=== PATIENT | female | born 1945 | race Caucasian/White ===

== ENCOUNTER → 2017-07-15 13:01 | Outpatient (CLI) | payer MEDICARE, SELFPAY ==
--- NOTE | 2017-07-15 13:10 | RAD_ITS ---
STUDY: LEG LENGTH STUDY REASON FOR EXAM: Female, 71 years old. Pain, leg length discrepancy TECHNIQUE: Frontal views of both lower extremities with a radiographic ruler in place are performed. COMPARISON: Left knee films 10/03/2009 FINDINGS: The right lower extremity measures approximately 81.8 cm, the left lower extremity measures approximately 80.6 cm. The right lower extremity is approximately 1.2 cm longer than the left. The patient is status post bilateral knee replacements. The orthopedic hardware is intact. RAD/Bone Length IMPRESSION: Leg length discrepancy, as described above. Electronically Signed: Jeremiah Jones DO at 10:58 EDT Tel , Service support ,
== END ==
PROVIDERS: Family Provider Family Medicine; PCP Family Medicine; Visit Provider Podiatrist
DX: M21.70 Unequal limb length (acquired), unspecified site (principal)
CPT/HCPCS: 77073

== ENCOUNTER → 2017-08-23 10:39 | Outpatient (CLI) | payer MEDICARE, SELFPAY ==
--- NOTE | 2017-08-23 10:39 | DT_ITS ---
This patient was seen during an EMR downtime August 19, 2017 - August 26, 2017. This patient may have a combination of paper and electronic documentation or all paper documentation. All documentation is viewable within the e-chart portion of [facility] for each patient visit.
[2017-08-23 14:22] LABS: CRP < 2.90 mg/L (0.0-3.0)
[2017-08-23 14:46] LABS: Absolute Lymphocyte Count 1.83 X10^3/ul (0.83-4.51); Absolute Neutrophil Count 1.6 X10^3/uL (2.0-7.7); Basophil# 0.03 X10^3/uL; Basophil% 0.7 % (0-1); Eosinophil# 0.21 X10^3/uL; Eosinophils% 4.8 % (0-5); Hematocrit 40.9 % (37-47); Hemoglobin 13.6 g/dl (12.0-15.0); Lymphocyte # 1.83 X10^3/ul (4.0); Lymphocyte % 42.1 % (19-41); Mean Corp Hgb Conc 33.3 g/gl (32-36); Mean Corpuscular Hgb 31.1 pg (27.0-32.0); Mean Corpuscular Volume 93.4 fL (81-99); Mean Platelet Vol. 10.1 fl (6.2-12.0); Monocyte# 0.65 X10^3/uL; Monocyte% 14.9 % (0-10); Neutrophil # 1.62 X10^3/uL (2.7-7.7); Neutrophil % 37.3 % (47-70); POSITIVE COUNT NO; POSITIVE DIFFERENTIAL NO; POSITIVE MORPHOLOGY NO; Platelet Count 233 K/mm3 (150-450); RBC Distribution Width CV 13.7 % (11.6-14.6); RBC Distribution Width SD 45.8 fl (35.1-43.9); Red Blood Count 4.38 M/mm3 (4.2-5.4); White Blood Count 4.4 K/mm3 (4.4-11.0)
[2017-08-29 11:08] LABS: Erythrocyte Sedimentation Rate 18 mm/hr (0-30)
== END ==
PROVIDERS: Family Provider Family Medicine; PCP Family Medicine
DX: T84.498A Other mechanical complication of other internal orthopedic devices, implants and grafts, initial encounter (principal)
CPT/HCPCS: 36415; 85025; 85652; 86140

== ENCOUNTER → 2019-05-06 13:10 | Outpatient (CLI) | payer MEDICARE, SELFPAY ==
--- NOTE | 2019-05-06 13:16 | CT_ITS ---
STUDY: CT RIGHT ANKLE WITHOUT CONTRAST REASON FOR EXAM: Female, 73 years old. RIGHT ANKLE FX Apr, SLIPPED ON ICE RADIATION DOSAGE (If Supplied By Facility): CTDIvol = ( 6.13 ) mGy, DLP = ( 89.24 ) mGycm TECHNIQUE: Thin section transaxial imaging of the ankle was obtained, with sagittal and coronal reconstructed images. Individualized dose optimization techniques were used for this CT. COMPARISON: None. FINDINGS: There is a spiral fracture the distal fibula which extends from the anterior cortical surface of the fibula at the level the tibial plafond extending posteriorly to the level of the distal tibial metaphyseal region. The distal fracture fragment remains in anatomic alignment. There is a 4 mm posterior displacement of the distal fracture fragment. There is widening of the distal tibiofibular syndesmosis consistent with a syndesmotic injury. There is a posterior fracture of the posterior malleolus which extends into the posterior distal tibiofibular syndesmosis. There is no distraction of this fracture fragment. There is a punctate cortical chip avulsion from the anterior inferior tip of the medial malleolus (sagittal series 601, image 12), suggesting a ligamentous avulsion injury of the deltoid ligamentous complex. Normal talar dome.. Normal subtalar, talonavicular, and calcaneocuboid articulations. There is partial demonstration of a large plantar calcaneal spur measuring [address]/Extremity Lower without Contra IMPRESSION: 1. Spiral fracture the distal fibula as described above. 2. Posterior malleolar fracture extending into the posterior distal tibiofibular syndesmosis. 3. Widening of the posterior tibiofibular articulation consistent with a syndesmotic injury. 4. Cortical chip avulsion of the anterior inferior tip of the medial malleolus suggesting a ligamentous avulsion injury of the deltoid ligament. 5. Partial demonstration of a large plantar calcaneal spur. Electronically Signed: Tiburcio Machuca, DO at 13:55 EST Tel , Service support ,
--- NOTE | 2019-05-06 13:46 | RAD_ITS ---
STUDY: X-RAY CHEST REASON FOR EXAM: Female, 73 years old. SOME CONGESTION PER PATIENT. TECHNIQUE: PA and lateral views of the chest. COMPARISON: None. FINDINGS: Hyperinflation. The lungs are clear. There is no demonstrated pleural abnormality. Normal size heart. Normal mediastinum and zina. Normal visualized pulmonary arteries. There is atherosclerotic calcification of the aortic arch with tortuosity. There are diffuse degenerative changes of the visualized thoracic spine. Normal visualized ribs, clavicles, and shoulders. There is no demonstrated abnormality of the visualized soft tissue structures of the upper abdomen. RAD/Chest PA and Lateral IMPRESSION: Hyperinflation. The lungs are clear. Electronically Signed: Gadiel Mills, at 13:10 EST , Service support ,
--- NOTE | 2019-05-06 13:49 | EKG12_ITS ---
Test Reason : PRE OP Blood Pressure : / mmHG Vent. Rate : 085 BPM Atrial Rate : 085 BPM P-R Int : 154 ms QRS Dur : 086 ms QT Int : 354 ms P-R-T Axes : 053 024 027 degrees QTc Int : 421 ms Normal sinus rhythm Normal ECG Confirmed by JAVED PRIETO ([id number]), sports editor KATHERYN ENGLISH ([id number]) on 05/07/2019 9:47:50 AM Referred By: Zeus Yancey Confirmed By:JAVED PRIETO
[2019-05-06 14:45] LABS: Absolute Neutrophil Count 2.7 X10^3/uL (2.0-7.7); Basophil# 0.06 X10^3/uL; Basophil% 1.2 % (0-1); Eosinophil# 0.16 X10^3/uL; Eosinophils% 3.1 % (0-5); Hematocrit 44.2 % (37-47); Hemoglobin 14.7 g/dL (12.0-15.0); Lymphocyte % 31.1 % (19-41); Mean Corp Hgb Conc 33.3 g/dL (32-36); Mean Corpuscular Hgb 31.1 pg (27.0-32.0); Mean Corpuscular Volume 93.4 fL (81-99); Mean Platelet Vol. 10.2 fl (6.2-12.0); Monocyte# 0.63 X10^3/uL; Monocyte% 12.3 % (0-10); NRBC Flagged by Analyzer 0 % (0-5); Neutrophil # 2.68 X10^3/uL (2.7-7.7); Neutrophil % 52.1 % (47-70); Platelet Count 301 K/mm3 (150-450); RBC Distribution Width SD 44.4 fl (35.1-43.9); Red Blood Count 4.73 M/mm3 (4.2-5.4); White Blood Count 5.1 K/mm3 (4.4-11.0)
[2019-05-06 15:02] LABS: International Normalized Ratio 1.1; Partial Thromboplast Time 27.2 Seconds (24.1-36.2); Prothrombin Time (Protime)PT. 14.1 SECONDS (11.7-14.9)
[2019-05-06 15:09] LABS: Hemoglobin A1c 5.9 % (4.2-6.3)
[2019-05-06 15:22] LABS: Anion Gap 5 (5-15); BUN 22 mg/dL (7-18); BUN/Creat Ratio 24.7 RATIO (10-20); Calcium,Total 10.5 mg/dL (8.5-10.1); Chloride 105 mmol/L (98-107); Creatinine, Serum 0.89 mg/dL (0.55-1.02); EST Glomerular Filtration Rate 66 mL/min (>60); Est Glom Filt Rate - Afr Amer 79 mL/min (>60); Glucose 84 mg/dL (74-106); Potassium 3.7 mmol/L (3.5-5.1); Sodium Level 140 mmol/L (136-145)
== END ==
PROVIDERS: PCP Family Medicine; Referring Provider Podiatrist Foot & Ankle Surgery; Visit Provider Podiatrist Foot & Ankle Surgery
DX: Z01.818 Encounter for other preprocedural examination (principal); Z01.810 Encounter for preprocedural cardiovascular examination; Z01.811 Encounter for preprocedural respiratory examination; S82.61XD Displaced fracture of lateral malleolus of right fibula, subsequent encounter for closed fracture with routine healing; I80.9 Phlebitis and thrombophlebitis of unspecified site; E11.9 Type 2 diabetes mellitus without complications
CPT/HCPCS: 36415; 71046; 73700; 80048; 83036; 85025; 85610; 85730; 93005

== ENCOUNTER → 2020-02-22 16:31 | Outpatient (CLI) | payer MEDICARE, SELFPAY | PROVIDERS: PCP Family Medicine; Visit Provider Obstetrics & Gynecology | DX: R30.0 Dysuria (principal) | CPT/HCPCS: 87086; 87088 ==

== ENCOUNTER → 2021-09-11 | Outpatient (CLI) | payer MEDICARE, SELFPAY ==
--- NOTE | 2021-09-11 08:20 | MRI_ITS ---
STUDY: MR Spine Lumbar W/O Contrast 09/11/2021 3:07 PM REASON FOR EXAM: Female, 75 years old. Back pain LUMBAR DISC DISPLACEMENT, RADICULOPATHY pain low back and bilat legs L > R, shorter leg, trouble walking TECHNIQUE: MR Spine Lumbar W/O Contrast Standardized fat and water weighted pulse sequences were obtained. COMPARISON: None FINDINGS: T12-L1: Normal endplates. Normal disc height, hydration and morphology. Normal bilateral facet joints. Normal central canal and bilateral lateral recesses. Normal bilateral intervertebral neural foramina. Normal lumbar lordosis. There is no substantial scoliosis. Normal conus medullaris that terminates at the L1. Large TARLOV cyst at S2. T1 vertebral body hemangioma. L1-2: Normal endplates. Normal disc height and morphology. Normal central canal and intervertebral neuroforamina.Disc desiccation. L2-3: Loss of intervertebral disc height. There is endplate spondylosis of the vertebral body. There is bilateral facet arthropathy. Broad-based disc herniation. Mild spinal stenosis but no narrowing of the intervertebral neuroforamina. There is bilateral ligamentum flavum thickening. Disc desiccation. L3-4: Loss of intervertebral disc height. There is endplate spondylosis of the vertebral body. There is bilateral facet arthropathy. Broad-based disc herniation. Mild spinal stenosis but no narrowing of the intervertebral neuroforamina. Disc desiccation. L4-5: Loss of intervertebral disc height. There is endplate spondylosis of the vertebral body. Grade 1 anterolisthesis of L4 on L5 measuring 2.4 mm. Right narrowing of the intervertebral neuroforamina. Compression of exiting right L4 nerve root. There is bilateral ligamentum flavum thickening. Severe spinal stenosis. Narrowing of the lateral recess. There is bilateral facet arthropathy. Disc desiccation. L5-S1: Loss of intervertebral disc height. There is endplate spondylosis of the vertebral body. There is bilateral facet arthropathy. Small left paracentral disc herniation. No spinal stenosis and no narrowing of the intervertebral neuroforamina. Disc desiccation. Normal visualized sacral ala. Normal visualized paraspinous soft tissue structures. MRI/Spine Lumbar (Routine) IMPRESSION: Multilevel degenerative changes, as described above. Large TARLOV cyst at S2. L5-S1: left paracentral disc herniation. No spinal stenosis. L2-3 and L3-4 with broad-based disc herniation. Mild spinal stenosis. Electronically Signed: Casey Fitzgerald MD at 15:13 EDT ,
== END | disposition home or self-care (01) ==
PROVIDERS: PCP Family Medicine; Visit Provider Nurse Practitioner Family
DX: M51.37 Other intervertebral disc degeneration, lumbosacral region (principal); M51.26 Other intervertebral disc displacement, lumbar region; M54.17 Radiculopathy, lumbosacral region; M47.817 Spondylosis without myelopathy or radiculopathy, lumbosacral region
CPT/HCPCS: 72148

== ENCOUNTER 2021-10-24 13:26 | Inpatient (IN) | payer MEDICARE, SELFPAY ==
--- NOTE | 2021-10-24 13:25 | EKG12_ITS ---
Test Reason : PRE-OP Blood Pressure : / mmHG Vent. Rate : 064 BPM Atrial Rate : 064 BPM P-R Int : 160 ms QRS Dur : 088 ms QT Int : 414 ms P-R-T Axes : 046 041 029 degrees QTc Int : 427 ms Normal sinus rhythm Normal ECG When compared with ECG of 06-MAY-2019 14:00, No significant change was found Confirmed by MILKA FINE, RADHA ([id number]), desk editor KATHERYN ENGLISH ([id number]) on 10/27/2021 2:33:49 PM Referred By: Brielle Bright Confirmed By:HEIDI JARQUIN MD
--- NOTE | 2021-10-24 14:41 | HP.PCM.HOS_ITS ---
HPI - General General Date of Admission: 10/24/21 Date of Service: 10/24/21 Chief Complaint: LLE pain s/p fall. HPI Narrative The patient is a 76 y/o F w/ PMHx: HTN, PONV, Obesity, Hx remote DVT 1993 following Knee surgery (coumadin at that time, uses xarelto/eliquis post-op now) who presents to the [facility] a [facility]21 following mechanical fall with immediate LLE pain, deformity prompting ED evaluation reporting that she had been attempting to pull out her fridge to clean underneath it but accidentally pulled on the door instead of the outside of the fridge which immediately swung open causing her to fall backwards. She currently notes that the pain is primarily extending from her thigh down to her ankle, pulsating, aching, 4-10 in severity. Work-up in the OSH ED included CMP with sodium 137, potassium 3.8, chloride 107, CO2 21.2, BUN/creat 20/0.82, glucose 132, hepatic profile unremarkable, CBC with WC 5.6, hemoglobin 14.1, platelet 184 without marked shift, chest x-ray with no acute cardiopulmonary findings, plain film of the left lower extremity with a displaced and mildly angulated oblique fracture of the mid femur at the level of the proximal stent of the medullary portion of the knee prosthesis. ED discussed case with Dr. Alvarado who accepted transition of care to [facility]. [facility] Medical History (Updated 10/24/21 @ 19:[address] Jennifer Grace MD) History of DVT (deep vein thrombosis) HTN (hypertension) Obesity PONV (postoperative nausea and vomiting) Stress incontinence Vaginal vault prolapse Home Medications celecoxib 200 mg capsule 200 mg PO DAILY 10/24/21 [History Last Taken 10/23/21] clobetasol 0.05 % topical ointment topical PRN Vaginal Irritation 10/24/21 [ History Last Taken Unknown] hydrochlorothiazide 25 mg tablet 25 mg PO DAILY 10/24/21 [History Last Taken 10/23/21] lisinopril 5 mg tablet 5 mg PO DAILY 10/24/21 [History Last Taken 10/23/21] Allergy/AdvReac Type Severity Reaction Status Date / Time acetaminophen [From [place]] AdvReac Intermediate Vomiting Verified 10/24/21 13:41 hydrocodone [From [place]] AdvReac Intermediate Vomiting Verified 10/24/21 13:41 morphine AdvReac Intermediate Nausea/emes Verified 10/24/21 13:13 is nabumetone AdvReac Intermediate Other Verified 10/24/21 13:41 tramadol AdvReac Intermediate Vomiting Verified 10/24/21 13:41 Family History (Updated 10/24/21 @ 13:[address] Jennifer Grace MD) Mother Bladder cancer CHF (congestive heart failure) Alzheimer disease Grandmother Diabetes Maternal grandmother Surgical History (Updated 10/24/21 @ 13:[address] Jennifer Grace MD) History of hysterectomy History of total right knee replacement Hx of vaginal surgery Social History (Updated 10/24/21 @ 13:[address] Jennifer Grace MD) household members: spouse Smoking Status: Never smoker alcohol intake: never substance use type: does not use ROS ROS Narrative Admission Review of Systems: CONSTITUTIONAL: No weight loss, fever, chills, + weakness or fatigue. HEENT: Eyes: No visual loss, blurred vision, double vision or yellow sclerae. Ears, Nose, Throat: No hearing loss, sneezing, congestion, runny nose or sore throat. SKIN: No rash or itching, lesions, wounds. CARDIOVASCULAR: No chest pain, chest pressure or chest discomfort, palpitations, edema, orthopnea, syncopal events. RESPIRATORY: No shortness of breath, cough or sputum, wheezing, hemoptysis. GASTROINTESTINAL: + anorexia, nausea, No vomiting or diarrhea, abdominal pain, melena, BRBPR. GENITOURINARY: No dysuria, frequency, urgency or retention. NEUROLOGICAL: No headache, dizziness, syncope, paralysis, ataxia, numbness or tingling in the extremities, focal weakness, change in bowel or bladder control, seizure. MUSCULOSKELETAL: + muscle, back pain, joint pain or stiffness. HEMATOLOGIC: No anemia, bleeding or bruising. LYMPHATICS: No enlarged nodes. No history of splenectomy. PSYCHIATRIC: No history of depression or anxiety. ENDOCRINOLOGIC: No reports of sweating, cold or heat intolerance. No polyuria or polydipsia. ALLERGIES: No history of asthma, hives, eczema or rhinitis. Physical Exam Narrative Physical Examination: General: Awake, alert, oriented x 3 and cooperative, laying in MedSurg bed, fatigued, notes pain currently 3-4 out of 10 in severity to the left lower extremity Skin: Normal color, normal turgor, no icterus, no cyanosis except initial stages ecchymoses however difficult to assess as currently in stabilization wrap. HEENT: AT/NC, EOMI, PERRLA, mildly dry MM, no carotid bruits or JVD noted. Lungs: Mild diminished, greater bases, appropriate for, no rales, ronchi or wheezing. Heart: Currently regular rate and rhythm; no gallop, rub audible. Abdomen: Soft, obese, NTTP, ND, mildly hyperactive BS, no HSM. Extremities: No cyanosis, no clubbing, left lower extremity is noted in wrap, able to move toes, peripheral digits warm. Neurological: Patient awake, alert, oriented as noted, cognitive function intact; pupils equally reactive to light and accommodation, cranial nerves II- XII grossly normal, moving all 4 extremities however significantly limited left lower extremity given recent fall with femoral fracture, strength accordingly severely globally decreased. Psychiatric: Affect appears fatigued otherwise normal, no acute evidence of depressive or anxiety feelings. Assessment & Plan Assessment/Plan (1) Closed left femoral fracture: PLAN: Plan The patient is a 76 y/o F w/ PMHx: HTN, PONV, Obesity, Hx remote DVT 1993 following Knee surgery (coumadin at that time, uses xarelto/eliquis post-op now) who presents to the [facility] as a direct admission from [facility] ED on 10/24/21 following mechanical fall with immediate LLE pain, deformity prompting ED evaluation reporting that she had been attempting to pull out her fridge to clean underneath it but accidentally pulled on the door instead of the outside of the fridge which immediately swung open causing her to fall backwards. #1. General debility, LLE pain s/p mechanical fall w/ the left lower extremity with a displaced and mildly angulated oblique fracture of the mid femur at the level of the proximal stent of the medullary portion of the knee prosthesis: Orthopedic surgery consulted from ED at outside facility. Will admit to [facility], maintain NPO after midnight, continue gentle IVFs, mayorga placement, monitor I/Os, frequent positioning, fall precautions, pain, anti-emetic regimen. PT/OT following operative intervention. CM consulted for discharge planning. Per NSQIP patient perioperative risk average, will obtain preoperative EKG is not performed at outside facility, review of labs with not marked appearing CBC or CMP and unremarkable chest x-ray. If EKG not marked we will pursue a.m. orthopedic surgery intervention. #2. Hypertension: Continue home regimen including lisinopril and hydrochlorothiazide with hold parameters as needed, PRN hydralazine. #3. Significant PONV: Placed in patient's file as history, will defer to anesthesia for potential perioperative agents, will have as needed Zofran and breakthrough Compazine if needed, may couple days also with any pain regimen given history. #4. Obesity: Weight loss and lifestyle changes encouraged. #5. History DVT: Patient with history of DVT 1993 following knee surgery, maintained at that time on Coumadin, uses Xarelto versus Eliquis postoperative now, will defer to orthopedic surgery regarding start time following operative repair. #6. DVT prophylaxis: SCDs, defer chemoprophylaxis for following OR once cleared per orthopedic surgery. #7. CODE status: Patient HCPOA is her and living will is currently in place. Discussed CODE status at length including difference between FULL code, DNR-CCA and DNR-CC status. Following discussions about the differences in these status, requested Full Code status. Advanced Care Planning Face to Face Time: 16 minutes. Charges/Coding Visit Charges Inpatient E&M: 81645 Init Hosp L3 Procedures Hospitalists Procedures: 60284 Advncd Care Plan 30 Min
[2021-10-24 14:42] VITALS: BP 172/78; PULSE 67; RESP 16; TEMP 36.5; O2SAT 99; BMI 33.0
[2021-10-24 15:05] VITALS: O2SAT 99
[2021-10-24 16:30] VITALS: BP 154/73
[2021-10-24] MEDS: Morphine 4 MG/ML Syringe IV ×2 (16:37→20:01)
[2021-10-24] MEDS: 0.9% Saline Lock 10 ML Syringe IV ×2 (16:37→20:02)
[2021-10-24 20:15] VITALS: BP 147/79; PULSE 85; RESP 16; TEMP 36.7; O2SAT 97
[2021-10-24 20:20] VITALS: BMI 33.0
[2021-10-25] VITALS (11 sets, daily range): BP systolic 105–152; BP diastolic 57–82; PULSE 64–126; RESP 15–18; TEMP 36.3–37.1; O2SAT 92–99
[2021-10-25] MEDS: 0.9% Normal Saline 1,000 ML 100 ML IV ×3 (01:50→21:45)
[2021-10-25] MEDS: Morphine 4 MG/ML Syringe IV ×3 (01:58→22:49)
[2021-10-25] MEDS: Ondansetron 4 MG/2 ML Vial IV ×2 (01:58→11:40)
[2021-10-25] MEDS: 0.9% Saline Lock 10 ML Syringe IV ×3 (01:58→22:49)
[2021-10-25] MEDS: Acetaminophen 325 MG Tablet 650 MG PO (05:31)
--- NOTE | 2021-10-25 05:40 | NURSING ---
cant get accurate weight due to has splint/cast on left leg for femur fx
[2021-10-25 05:47] LABS: Absolute Lymphocyte Count 1.84 X10^3/uL (0.83-4.51); Absolute Neutrophil Count 2.5 X10^3/uL (2.0-7.7); Basophil# 0.03 X10^3/uL; Basophil% 0.6 % (0-1); Eosinophil# 0.14 X10^3/uL; Eosinophils% 2.6 % (0-5); Hemoglobin 12.3 g/dL (12.0-15.0); Lymphocyte # 1.84 X10^3/ul (0.83-4.51); Lymphocyte % 34.3 % (19-41); Mean Corp Hgb Conc 33.2 g/dL (32-36); Mean Corpuscular Hgb 31.9 pg (27.0-32.0); Mean Corpuscular Volume 96.1 fL (81-99); Mean Platelet Vol. 9.5 fl (6.2-12.0); Monocyte# 0.82 X10^3/uL; Monocyte% 15.3 % (0-10); NRBC Flagged by Analyzer 0 % (0-5); Neutrophil # 2.52 X10^3/uL (2.7-7.7); Platelet Count 178 K/mm3 (150-450); RBC Distribution Width CV 13.6 % (11.6-14.6); RBC Distribution Width SD 47.9 fl (35.1-43.9); Red Blood Count 3.85 M/mm3 (4.2-5.4); White Blood Count 5.4 K/mm3 (4.4-11.0)
[2021-10-25 06:26] LABS: ALB/GLOB Ratio 0.9 RATIO (0.9-2.4); AST(SGOT) 20 U/L (15-37); Alanine Aminotransfer ALT/SGPT 22 U/L (13-56); Albumin, Serum 3.1 g/dL (3.2-5.0); Alkaline Phosphatase 83 U/L (45-117); Anion Gap 0 (5-15); BUN 17 mg/dL (7-18); Chloride 109 mmol/L (98-107); Creatinine, Serum 0.77 mg/dL (0.55-1.02); EST Glomerular Filtration Rate 77 mL/min (>60); Est Glom Filt Rate - Afr Amer 93 mL/min (>60); Estimated Creatinine Clearance 38.97 ml/min; Globulin 3.3 g/dL (2.2-4.2); Glucose 94 mg/dL (74-106); Potassium 4.1 mmol/L (3.5-5.1); Protein, Total 6.4 g/dL (6.4-8.2); Sodium Level 139 mmol/L (136-145)
--- NOTE | 2021-10-25 09:15 | RAD_ITS ---
STUDY: X-RAY - LEFT KNEE REASON FOR EXAM: Female, 76 years old. Pain TECHNIQUE: 2 view(s) of the knee. COMPARISON: None. FINDINGS: There is evidence of an oblique fracture of the distal femoral shaft with anterior displacement of the distal fracture fragment. The femoral component of the total knee replacement is within the fracture fragment. Status post left total knee replacement. Soft tissue swelling. RAD/Knee 1 or 2 Views IMPRESSION: Oblique fracture of the distal femoral shaft with anterior displacement of the distal fracture fragment containing the femoral component of the total knee replacement. Soft tissue swelling. Electronically Signed: Gadiel Mills MD at 9:47 EDT ,
--- NOTE | 2021-10-25 09:38 | CASEMGMT ---
EVA CROWLEY Assessment: Face to Face with pt for initial transition planning/care coordination assessment. EVA CROWLEY introduced self and role at [facility], pt voices understanding and consents to assessment. Pt is A/O x4 and answers all questions appropriately at this time. Pt lying in bed in no distress. Care providers, pharmacy, and demographics verified/updated. Admitting Dx: femur fx PCP:Abdirashid Specialists:[place], pain mgmt; néstor Colbert Pharmacy: [facility] Insurance: [facility] Prescription Benefit: yes LW/HPOA: Pt reports she has a LW/DPOA and her is her DPOA, Leland Flores. She is aware this is not on file at [facility] and she may bring in to be scanned into her chart. LNOK: Leland Flores, Living Arrangements: Pt lives with her in a single story house with 2 steps to enter with a rail on one side. Pt reports she is I in ADL's and denies concerns at home. Transportation: Pt drives self and denies concerns with transportation. Pt is also able to drive pt to medical appts if needed. DME/HHC/SNF: Pt has a cane and FWW at home but does not use. Pt also has grab bars in her bathroom. Pt states she has had HHC in the past but is unsure of the name of the agency. Pt denies SNF stays. Pt is unsure of her plan at ia. She states she would like to go home but is concerned of the stress it may put on her . She states he cannot handle stress as he has Parkinsons. She does have a son who is a chiropractor who lives close and a daughter but they are also busy but could provide some support. Pt is open to seeing what is recommended by therapy for her then deciding. Pt stats should she need to go to SNF, she prefers [facility]. Updated SW. Pt states no further concerns/needs. CM to follow. Advised pt to ask CM if any further question/concerns/needs arise, voices understanding. Pt Goal: TBD Plan: TBD pending therapy eval post surgery.
--- NOTE | 2021-10-25 11:44 | CASEMGMT ---
Pt family member brought in pt LW/DPOA. Copy made and filed in chart with originals returned to pt.
--- NOTE | 2021-10-25 14:05 | CHAPLAIN ---
Type of Pastoral Visit _x__ Initial Visit ___ Follow-up Visit ___ On-call Visit ___ General Patient Visit ___ Spiritual Assessment ___ Family Conference ___ Bereavement ___ Rapid Response ___ Code Blue ___ Other (describe below) Pastoral Care Referral From _x__ Patient ___ Family ___ Nurse ___ Physician ___ Supervisor [employer] ___ Yarder Puncher ___ Other (describe below) Sacrament/Intervention _x__ Active listening ___ Anointing ___ Gnosticism ___ Bereavement ___ Communion ___ Netta exploration ___ ___ Life review _x__ Prayer ___ Reconciliation ___ Sacrament of Sick ___ Supportive presence ___ Wedding ___ Other (describe below) Pastoral Comments patient is waiting for surgery this afternoon; pt would like a prayer for surgery and recovery; spouse is with patient and he seeks prayer and support too;
[2021-10-25] MEDS: HYDROmorphone 0.5 MG/0.5 ML SYRINGE IV (14:34)
--- NOTE | 2021-10-25 14:58 | PCM.CONS.GEN ---
Assessment & Plan Assessment/Plan (1) Closed left femoral fracture: PLAN: Plan Impression: 1. Left displaced oblique femur fracture with previous revision total knee arthroplasty I did discuss case with Dr. Victor Hugo Alvarado. Plan will be for open reduction internal fixation left femur fracture. I discussed this in detail with the patient and her . We discussed conservative or surgical intervention. Due to the nature of the fracture patient will require an open reduction internal fixation. She has been cleared by medicine and will be evaluated by anesthesia. Patient does have previous history of a DVT and postoperatively will require anticoagulant Xarelto. I did discuss and review with the patient all treatment options including surgical versus nonsurgical. Patient wishes to proceed with above-stated procedure. Potential risks, benefits, and complications of this procedure were discussed in detail including but not limited to , infection, nerve and blood vessel damage, persistent pain, numbness, tingling, paresthesias, blood clot, pulmonary embolism, and requirement for further surgery. The patient expressed full understanding has no further questions for the provider. Surgery consent form will be signed by Dr. Victor Hugo Alvarado when he discusses case with the patient. All questions were answered to the best of my ability. This dictation was created using voice recognition software. Phonetic and/or grammatical errors may exist. HPI Consult Data Date of Consult: 10/25/21 HPI Narrative Reason for Consultation: Left periprosthetic fracture of distal femur HPI Narrative: URSULA ARNOLD, is a 76 F who had a mechanical fall on October 24, 2021. Patient reports she was trying to clean underneath the refrigerator when she accidentally pulled on the door causing her to fall backwards. She had a twisting type injury to the left leg in which she had immediate pain. She denies hitting her head. Patient presented to [facility] in which x-rays were obtained. Patient sustained a distal femur fracture involving the revision total knee arthroplasty. Patient was transferred up to [facility] for surgical intervention. She was placed in a long-leg splint. Patient had a previous left total knee arthroplasty on September 28, [address] Adrian Fuller. This was followed by a revision left total knee arthroplasty on October 03, 2009 due to aseptic loosening. Patient denies any postoperative complications with infections. She went through normal formal physical therapy postoperatively. She was not complaining of any pain with the leg prior to the injury. She does report some weakness in that leg. She currently denies any numbness and tingling. Denies any pain at other sites. She has a medical history pertinent for hypertension, obesity, previous DVT in 1993 following a knee arthroscopy, restless leg syndrome. Patient reports that she is not on any anticoagulation for her previous DVT. Her pain is located over the left thigh. She has been nonweightbearing since the injury. She has currently been cleared by medicine. [facility] Medical History DVT (deep venous thrombosis) GERD (gastroesophageal reflux disease) Hiatal hernia History of DVT (deep vein thrombosis) HTN (hypertension) Irritable bowel Lupus Obesity PONV (postoperative nausea and vomiting) Post-menopausal Restless legs Stress incontinence Vaginal vault prolapse Home Medications celecoxib 200 mg capsule 200 mg PO DAILY 10/24/21 [History Last Taken 10/23/21] clobetasol 0.05 % topical ointment topical PRN Vaginal Irritation 10/24/21 [History Last Taken Unknown] hydrochlorothiazide 25 mg tablet 25 mg PO DAILY 10/24/21 [History Last Taken 10/23/21] lisinopril 5 mg tablet 5 mg PO DAILY 10/24/21 [History Last Taken 10/23/21] Allergy/AdvReac Type Severity Reaction Status Date / Time hydrocodone [From [place]] AdvReac Intermediate Vomiting Verified 10/25/21 14:14 morphine AdvReac Intermediate Nausea/emes Verified 10/25/21 14:14 is nabumetone AdvReac Intermediate Other Verified 10/25/21 14:14 tramadol AdvReac Intermediate Vomiting Verified 10/25/21 14:14 Family History Mother Bladder cancer CHF (congestive heart failure) Alzheimer disease Grandmother Diabetes Maternal grandmother Surgical History History of hysterectomy History of total right knee replacement Hx of vaginal surgery S/P hysterectomy Social History household members: spouse Smoking Status: Never smoker alcohol intake: never substance use type: does not use ROS Constitutional Constitutional: Reports systems reviewed and no addt'l complaints, except as documented Musculoskeletal Musculoskeletal: Reports systems reviewed and no addt'l complaints, except as documented Physical Exam Narrative On exam this is a pleasant 76-year-old female in no acute distress with her present. She is currently on the [facility] with long-leg splint in place. Patient is able to wiggle her toes. Sensation intact to light touch. Capillary refills less than 2 seconds. Range of motion was deferred secondary to fracture and concern for further displacement. Const alert, oriented x3 and no apparent distress General Appearance: cooperative Medical Records Data Attestation: I reviewed the patient's medical records Lab / Micro Data Attestation: I reviewed the patient's lab results. Result Diagrams: 10/25/21 05:25 10/25/21 05:25 Labs: Laboratory Results - last 24 hr 10/25/21 05:25: WBC 5.4, RBC 3.85 L, Hgb 12.3, Hct 37.0, MCV 96.1, MCH 31.9, MCHC 33.2, RDW Std Deviation 47.9 H, RDW Coeff of Garret 13.6, Plt Count 178, MPV 9.5, Immature Gran % (Auto) 0.200, Neut % (Auto) 47.0, Lymph % (Auto) 34.3, [place] % (Auto) 15.3 H, Eos % (Auto) 2.6, Baso % (Auto) 0.6, Absolute Neuts (auto) 2.5, Absolute Lymphs (auto) 1.84, Nucleated RBC % 0 10/25/21 05:25: Sodium 139, Potassium 4.1, Chloride 109 H, Carbon Dioxide 30.0, Anion Gap 0 L, BUN 17, Creatinine 0.77, Estim Creat Clear Calc 38.97, Est GFR (MDRD) Af Amer 93, Est GFR (MDRD) Non-Af 77, BUN/Creatinine Ratio 22.0 H, Glucose 94, Calcium 9.0, Total Bilirubin 0.80, AST 20, ALT 22, Alkaline Phosphatase 83, Total Protein 6.4, Albumin 3.1 L, Globulin 3.3, Albumin/Globulin Ratio 0.9 10/25/21 05:25: Blood Type O POSITIVE, Antibody Screen NEGATIVE Radiology Impression X-rays were discussed and reviewed with Dr. Victor Hugo Alvarado. Knee X-Ray 10/25/21 09:15 IMPRESSION: Oblique fracture of the distal femoral shaft with anterior displacement of the distal fracture fragment containing the femoral component of the total knee replacement. Soft tissue swelling. Electronically Signed: Gadiel Mills MD at 9:47 EDT , Procedure Criteria Type of Procedure Procedure Type: Elective (Open reduction internal fixation left femur fracture) Elective Risks - COVID COVID Risk Discussion: The surgeon/proceduralist and patient have discussed in detail the risk of exposure to and/or potential harm posed by the COVID-19 virus with having a surgery/procedure at this time versus the risk of delaying the surgery/procedure. It is not possible to know either the risk of delaying the surgery or procedure or chance of getting an infection with perfect accuracy, but a joint decision was made between the patient and the surgeon/proceduralist to proceed at this time with the scheduled surgery/procedure as indicated on the consent form.
--- NOTE | 2021-10-25 15:35 | PCM.PN.HOSP ---
Subjective Subjective OR laterShe is feeling okay other than having leg pain. Her pain is controlled as long as she is at rest. She states she does have pain if she tries to move that leg today per discussion with nursing staff. Objective Data Objective Data Vital Signs: Vital Signs Temp Pulse Resp BP Pulse Ox O2 Del Method 98.7 F 64 18 152/73 H 99 Room Air 10/25/21 13:43 10/25/21 13:43 10/25/21 13:43 10/25/21 13:43 10/25/21 13:43 10/25/21 13:43 Oxygen Delivery Method Room Air Weight: 84.64 kg Body Mass Index (BMI) 33.0 Intake & Output: Intake and Output for Last 24 Hours 10/23/21 10/24/21 10/25/21 23:59 23:59 23:59 Intake Total 975 / 975 Output Total 1300 / 1300 Balance -325 / -325 Lab / Micro Data Result Diagrams: 10/25/21 05:25 10/25/21 05:25 Labs: Laboratory Results - last 24 hr 10/25/21 05:25: WBC 5.4, RBC 3.85 L, Hgb 12.3, Hct 37.0, MCV 96.1, MCH 31.9, MCHC 33.2, RDW Std Deviation 47.9 H, RDW Coeff of Garret 13.6, Plt Count 178, MPV 9.5, Immature Gran % (Auto) 0.200, Neut % (Auto) 47.0, Lymph % (Auto) 34.3, [place] % (Auto) 15.3 H, Eos % (Auto) 2.6, Baso % (Auto) 0.6, Absolute Neuts (auto) 2.5, Absolute Lymphs (auto) 1.84, Nucleated RBC % 0 10/25/21 05:25: Sodium 139, Potassium 4.1, Chloride 109 H, Carbon Dioxide 30.0, Anion Gap 0 L, BUN 17, Creatinine 0.77, Estim Creat Clear Calc 38.97, Est GFR (MDRD) Af Amer 93, Est GFR (MDRD) Non-Af 77, BUN/Creatinine Ratio 22.0 H, Glucose 94, Calcium 9.0, Total Bilirubin 0.80, AST 20, ALT 22, Alkaline Phosphatase 83, Total Protein 6.4, Albumin 3.1 L, Globulin 3.3, Albumin/Globulin Ratio 0.9 10/25/21 05:25: Blood Type O POSITIVE, Antibody Screen NEGATIVE Radiography Diagnostic Testing: Radiology Impression Knee X-Ray 10/25/21 09:15 IMPRESSION: Oblique fracture of the distal femoral shaft with anterior displacement of the distal fracture fragment containing the femoral component of the total knee replacement. Soft tissue swelling. Electronically Signed: Gadiel Mills MD at 9:47 EDT , Physical Exam Const alert, oriented x3, no apparent distress, healthy appearing and well nourished Constitutional Narrative: Obese, older white female, sitting up in bed watching television, appears comfortable nontoxic HEENT head/scalp atraumatic, moist oral mucous membranes and oropharynx normal HEENT Narrative: Mallampati 2, no thrush Resp normal respiratory effort, no retractions, no use of accessory muscles and clear to auscultation bilaterally Auscultation: Negative for crackles, rales, rhonchi or wheezes Cardio regular rate, regular rhythm, S1 normal heart sound, S2 normal heart sound, no murmurs, no rub, no gallops, no clicks and no JVD GI normal to inspection, nondistended, normoactive bowel sounds, soft to palpation, non-tender and non-distended Extremity Extremity Narrative: Left lower extremity with a long posterior splint in place to prevent mobility and Aki bandage, cap refill is 2+ bilateral lower extremities, no significant edema, no cyanosis or clubbing Neuro oriented x3, CN's II-XII intact bilaterally and no focal motor deficits Neuro Narrative: Limited movement left lower extremity secondary to fracture in the left femur but otherwise moves all extremities symmetrically Sensorium / Orientation: awake, alert, oriented to person, oriented to place and oriented to time Speech: speech normal Psych affect normal Assessment & Plan Assessment/Plan (1) Closed left femoral fracture: PLAN: Plan Left displaced oblique fracture of the mid femoral shaft proximal to the medullary portion of the knee prosthesis -Plan is for OR later today -Postoperative PT and OT -DVT prophylaxis per orthopedic surgery--> patient has history of DVT following knee surgery in 1993 -May need rehab depending on postoperative functional capacity -Continue current medications for pain -Bowel regimen Hypertension -Continue home lisinopril and hydrochlorothiazide -As needed hydralazine available History of postoperative DVTs -Occurred in 1993 following knee surgery -Was on Coumadin at that time -Typically uses Xarelto versus Eliquis per preoperatively now -Defer to orthopedic surgery with regards to starting of postoperative prophylaxis and type Obesity -BMI is 33.1 -Recommend weight loss -Complicates treatment, prognosis, outcomes DVT prophylaxis -As noted above CODE STATUS Full code Charges/Coding Visit Charges Inpatient E&M: 61609 Subs Hosp L2
[2021-10-25] MEDS: Cefazolin 2 GM in 0.9% Normal Saline 100 ML IV (15:48)
--- NOTE | 2021-10-25 16:10 | RAD_ITS ---
STUDY: X-RAY - LEFT FEMUR REASON FOR STUDY: Female, 76 years old. FX TECHNIQUE: 19 view(s) of the femur. No radiation dose provided. COMPARISON: None. FINDINGS: Fluoroscopic support for femur internal fixation. Knee arthroplasty with patellar resurfacing noted. Femoral fixation plate and screw complex noted spanning oblique femur fracture. RAD/Femur Min 2 Views IMPRESSION: Fluoroscopic support for femur internal fixation.. Please refer to orthopedic procedure note for real-time findings. Electronically Signed: Justus Hernandez MD at 0:52 EDT ,
--- NOTE | 2021-10-25 17:51 | PCM.OPRPT ---
Report of Operation Date of Procedure: 10/25/21 Pre-Operative Diagnosis: Left periprosthetic femoral shaft fracture Post-Operative Diagnosis: Left periprosthetic femoral shaft fracture Surgery/Procedure Performed:: Open reduction internal fixation left femoral shaft fracture Description of Surgical Findings:: Stable reduction. Surgeon: Victor Hugo Alvarado independent agent music education: John Garcia Type of Anesthesia: General Anesthesiologist: Kameron Hurtado Special Medications: Ancef Estimated Blood Loss (mL): 300 Fluids Replaced: 1400 mL crystalloid Description of Procedure: On date of the procedure patient was seen and examined the preoperative area. We agreed on the left femoral shaft open reduction internal fixation. Discussions are noted in the consultation is regarding to risks and benefits of the procedure. Patient demonstrate understanding wish to proceed. Left leg was marked. Patient was brought back to the operating room where they were transferred the table in the supine position. Anesthesia assumed control the C-spine and airway and remained to control throughout the main the procedure. After the patient was adequately anesthetized patient was placed lateral decubitus position. All bony problems identified well-padded. Axillary roll was placed. After the patient was adequately secured to the table in the pegboard the left lower extremity was prepped in a sterile fashion while the surgeon scrubbed. Upon entering the room the left lower extremity was prepped in orthopedic fashion incision was marked out and timeout was called. Upon agreed upon the side, the site, the shoe to be performed, patient identity and antibiotics given. Incision was taken down through skin. Hemostasis was obtained. Fascia was incised in line with the incision of the skin. We carefully dissected down to the knee we identified the lateral femur and the landing zone for the distal femoral portion of the plate. We then attempted to go submuscular and reduce the fracture however the fracture reduction was blocked by the previous implant. We then lifted the vastus lateralis anterior and well with identify the fracture. At this time we were able to place a clamp around the fracture. Live x-ray was used to verify that the fracture was adequately reduced. Once were happy with fracture reduction a cable was placed. The plate was placed over the cable and live x-ray was used to verify plate placement and fracture reduction. Once we are happy with this whirlybird's were placed proximally and distally. We again verified the placement of the plate. We then placed 4 screws locking in the distal portion of the femur. These were short screws. Based on this we will asked to place 2 additional cables around the metaphyseal diaphyseal junction of the shaft. After these cables were placed 3 additional locking screws were placed proximal to the fracture and holes 10, 12 and 14. Once this was completed the whirlybird was removed. Fracture remained stable. Live x-rays used to verify fracture reduction. Wound was copiously irrigated out with a 3-minute dilute Betadine lavage, 1 minute chlorhexidine lavage and copious amounts of normal saline. Fascia was then closed with #1 Vicryl. There was tenuous posterior lateral fascia especially proximally. We also closed some of the soft tissue structures over the distal plate prior to closing the distal fascia. Fascia was closed #1 Vicryl. Deep layer was closed #1 Vicryl. Skin was closed 2-0 Vicryl final closure was done with abdon. Once this was completed sterile dressing was placed. Patient was placed back in the supine position and transferred to the bed and transferred to the PACU for recovery. Postop plan for this patient: Patient will be toe-touch weightbearing for a total of 6 weeks. We will begin to progress weightbearing based on radiographic evidence of healing after 6 weeks. Protected weightbearing for total of 12 months. Patient be placed on Xarelto for DVT prophylaxis due to history of DVTs after arthroscopy 10 mg daily for the next 2 weeks followed by 2 weeks of aspirin 81 mg twice daily. Patient can perform range of motion exercises of the knee at this time. My physician fish hatchery superintendent (PE) was a vital part of this case. They were important in appropriate retraction during the case, and protection of soft tissues during bony cuts. Their intimate knowledge of the case and my steps aided in safe and expedient completion of the procedure as well as appropriate position of the leg during the case. They were also vital in assisting with closure under my direct supervision. He was also vital in helping with obtaining and maintaining the appropriate reduction of the fracture during the procedure. Grafts/Implants Used: Synthes 14 hole anatomic left distal femur plate Admit VTE Documentation VTE Present on Admission: No VTE Mechan Device Prophylaxis: SCD's and Thigh High ANDREAS Hose VTE Pharm Prophylaxis ordered?: Yes
--- NOTE | 2021-10-25 18:45 | RAD_ITS ---
STUDY: X-RAY - LEFT KNEE REASON FOR EXAM: Female, 76 years old. Post op -- AP and Lateral x-ray of operative knee in PACU TECHNIQUE: 2 view(s) of the knee. COMPARISON: Earlier the same day FINDINGS: There is demineralization of the visualized distal femur and proximal tibia and fibula. There is stable revised total knee replacement. There is new fixation plate with screws and wires traversing fracture of the distal shaft of the femur. Normal proximal tibiofibular articulation. There is postoperative change in the soft tissues. There are skin abdon. RAD/Knee 1 or 2 Views IMPRESSION: Status post ORIF distal femur fracture. Stable knee replacement. Electronically Signed: Chapin Melchor MD at 20:09 EDT Reading Location ID and State: [facility] / [place] , Service support ,
[2021-10-25] MEDS: Acetaminophen 500 MG Tablet 1000 MG PO (21:46)
[2021-10-25] MEDS: Lisinopril 5 MG Tablet PO (21:46)
[2021-10-25] MEDS: Senna/Docusate Sodium 1 Tablet 2 TABLET PO (21:46)
[2021-10-25] MEDS: hydroCHLOROthiazide 25 MG Tablet PO (21:47)
[2021-10-25] MEDS: Celecoxib 200 MG Capsule PO (21:48)
--- NOTE | 2021-10-25 22:25 | RAD_ITS ---
STUDY: X-RAY - LEFT FEMUR REASON FOR STUDY: Female, 76 years old. fracture TECHNIQUE: 4 image AP and crosstable lateral femur.. COMPARISON: October 25, 2021. FINDINGS: Lateral thigh skin abdon present with subcutaneous edema. Lateral femur fixation plate screw complex with cerclage wires and proximal and distal internal fixation fixation screws, spanning femoral oblique fracture proximal to the arthroplasty, with anatomic alignment. Knee arthroplasty with patellar resurfacing present RAD/Femur Min 2 Views IMPRESSION: Status post femoral internal fixation. Electronically Signed: Justus Hernandez MD at 0:59 EDT ,
[2021-10-26] MEDS: Ondansetron 4 MG/2 ML Vial IV ×3 (00:19→16:55)
[2021-10-26] MEDS: Cefazolin 1 GM/50 ML BAG IV ×2 (00:19→08:11)
[2021-10-26] MEDS: 0.9% Saline Lock 10 ML Syringe IV ×2 (00:19→21:25)
[2021-10-26] MEDS: Acetaminophen 500 MG Tablet 1000 MG PO ×3 (04:59→21:27)
[2021-10-26] MEDS: Rivaroxaban 10 MG Tablet PO (04:59)
[2021-10-26 05:19] VITALS: BP 126/76; PULSE 105; RESP 16; TEMP 36.6; O2SAT 96
[2021-10-26] MEDS: 0.9% Normal Saline 1,000 ML 100 ML IV (06:51)
[2021-10-26 06:56] LABS: Absolute Lymphocyte Count 0.28 X10^3/uL (0.83-4.51); Absolute Neutrophil Count 6.4 X10^3/uL (2.0-7.7); Basophil# 0.01 X10^3/uL; Basophil% 0.1 % (0-1); Hematocrit 32.8 % (37-47); Hemoglobin 11.5 g/dL (12.0-15.0); Lymphocyte # 0.28 X10^3/ul (0.83-4.51); Lymphocyte % 3.9 % (19-41); Mean Corp Hgb Conc 35.1 g/dL (32-36); Mean Corpuscular Hgb 32.9 pg (27.0-32.0); Mean Corpuscular Volume 93.7 fL (81-99); Mean Platelet Vol. 9.9 fl (6.2-12.0); Monocyte% 8.3 % (0-10); NRBC Flagged by Analyzer 0 % (0-5); Neutrophil # 6.36 X10^3/uL (2.7-7.7); Neutrophil % 87.4 % (47-70); POSITIVE COUNT YES; POSITIVE DIFFERENTIAL YES; Platelet Count 98 K/mm3 (150-450); RBC Distribution Width CV 13.4 % (11.6-14.6); RBC Distribution Width SD 45.8 fl (35.1-43.9); White Blood Count 7.3 K/mm3 (4.4-11.0)
[2021-10-26 07:04] LABS: Differential Indicated SCAN CRITERIA MET
[2021-10-26 07:29] LABS: Anion Gap 7 (5-15); BUN 16 mg/dL (7-18); BUN/Creat Ratio 18.7 RATIO (10-20); Calcium,Total 8.8 mg/dL (8.5-10.1); Chloride 108 mmol/L (98-107); Creatinine, Serum 0.86 mg/dL (0.55-1.02); EST Glomerular Filtration Rate 68 mL/min (>60); Est Glom Filt Rate - Afr Amer 83 mL/min (>60); Estimated Creatinine Clearance 45.32 ml/min; Glucose 148 mg/dL (74-106); Sodium Level 141 mmol/L (136-145)
[2021-10-26 07:31] VITALS: O2SAT 95
[2021-10-26 07:55] LABS: Platelet Estimate MOD DEC (ADEQ)
[2021-10-26] MEDS: Ensure Surgery 237 ML LIQUID PO ×2 (08:31→12:54)
[2021-10-26] MEDS: Lisinopril 5 MG Tablet PO (08:44)
[2021-10-26] MEDS: hydroCHLOROthiazide 25 MG Tablet PO (08:44)
[2021-10-26] MEDS: Senna/Docusate Sodium 1 Tablet 2 TABLET PO ×2 (08:44→21:27)
--- NOTE | 2021-10-26 08:59 | PCM.PN.ORT ---
Subjective Subjective Patient is doing well overall. Her pain is under control. She does have some nausea from the tramadol. She also reports feeling somewhat groggy and less alert this morning. She is able to answer all my questions appropriately. She asks appropriate questions but has minimal questions due to her thought process. She denies any associated numbness and tingling. She denies any calf pain or shortness of breath. She remains on 2 L of oxygen but is nonlabored in her breathing. Objective Data Objective Data Vital Signs: Vital Signs Temp Pulse Resp BP Pulse Ox O2 Del Method O2 Flow Rate 97.8 F 105 H 16 126/76 H 95 Nasal Cannula 2 10/26/21 05:19 10/26/21 05:19 10/26/21 05:19 10/26/21 05:19 10/26/21 07:31 10/26/21 07:31 10/26/21 07:31 Oxygen Flow Rate (L/min) 2 Oxygen Delivery Method Nasal Cannula Weight: 188 lb 11.2 oz Body Mass Index (BMI) 33.0 Intake & Output: Intake and Output for Last 24 Hours 10/24/21 10/25/21 10/26/21 23:59 23:59 23:59 Intake Total 2085 / 2085 1126.67 / 1126.67 Output Total 2300 / 2300 650 / 650 Balance -215 / -215 476.67 / 476.67 Lab / Micro Data Attestation: I reviewed the patient's lab results. Result Diagrams: 10/26/21 06:07 10/26/21 06:07 Labs: Laboratory Results - last 24 hr 10/26/21 06:07: WBC 7.3, RBC 3.50 L, Hgb 11.5 L, Hct 32.8 L, MCV 93.7, MCH 32.9 H, MCHC 35.1 D, RDW Std Deviation 45.8 H, RDW Coeff of Garret 13.4, Plt Count 98 L, MPV 9.9, Immature Gran % (Auto) 0.300, Neut % (Auto) 87.4 H, Lymph % (Auto) 3.9 L, [place] % (Auto) 8.3, Eos % (Auto) 0.0, Baso % (Auto) 0.1, Absolute Neuts (auto) 6.4, Absolute Lymphs (auto) 0.28 L, Nucleated RBC % 0, Differential Comment COMMENT, Platelet Estimate MOD 10/26/21 06:07: Sodium 141, Potassium 4.0, Chloride 108 H, Carbon Dioxide 26.0, Anion Gap 7, BUN 16, Creatinine 0.86, Estim Creat Clear Calc 45.32, Est GFR (MDRD) Af Amer 83, Est GFR (MDRD) Non-Af 68, BUN/Creatinine Ratio 18.7, Glucose 148 H, Calcium 8.8 Radiography Diagnostic Testing: Radiology Impression Knee X-Ray 10/25/21 09:15 IMPRESSION: Oblique fracture of the distal femoral shaft with anterior displacement of the distal fracture fragment containing the femoral component of the total knee replacement. Soft tissue swelling. Electronically Signed: Gadiel Mills MD at 9:47 EDT , Femur X-Ray 10/25/21 16:10 IMPRESSION: Fluoroscopic support for femur internal fixation.. Please refer to orthopedic procedure note for real-time findings. Electronically Signed: Justus Hernandez MD at 0:52 EDT , Knee X-Ray 10/25/21 18:45 IMPRESSION: Status post ORIF distal femur fracture. Stable knee replacement. Electronically Signed: Chapin Melchor MD at 20:09 EDT , Femur X-Ray 10/25/21 22:25 IMPRESSION: Status post femoral internal fixation. Electronically Signed: Justus Hernandez MD at 0:59 EDT , Physical Exam Const alert and no apparent distress Resp normal respiratory effort Resp Narrative: Using incentive spirometer this morning Extremity Extremity Narrative: Left lower extremity: Dressing is clean dry and intact Sensations intact to light touch saphenous, sural, superficial peroneal, deep peroneal, and tibial distributions Motors intact EHL, DF, PF calves are soft and supple SCDs in place Assessment & Plan Assessment/Plan (1) Closed left femoral fracture: PLAN: Postop day 1 left femoral shaft periprosthetic fracture 1. Pain control: Did discuss the side effects of tramadol however, patient is sensitive to narcotics in general would likely have further side effects with any more narcotics. Additionally she is getting some morphine which could be can discontinued. 2. Nausea: Zofran as needed. We will attempt to manage narcotics with primary service. Would benefit from discontinuing morphine. 3. DVT prophylaxis: Xarelto 10 mg daily for 2 weeks followed by aspirin 81 mg for 2 weeks 4. Infection prevention: Doxycycline for 2 weeks 100 mg twice daily as patient is high risk and procedure is high risk for infection. 5. Therapy: Toe-touch weightbearing with range of motion as tolerated of the knee. Will remain toe-touch for at least 6 weeks 6. Disposition: Patient is doing well overall today. We will need to manage nausea with pain control. Will need discharged on Xarelto for 2 weeks followed by aspirin for 2 weeks. Dressing should remain intact for 5 days as long as it is not saturated. If it is saturated should be changed as needed. Dressing can be discontinued after 5 days if incision remains clean and dry if not continue with dry dressing changes. Follow-up in office in 2 weeks for wound check and staple removal as well as radiographs. Please call orthopedics for any further questions or concerns. [facility] Office: (2) History of DVT (deep vein thrombosis): PLAN: Xarelto for DVT prophylaxis for 2 weeks followed by 2 weeks of aspirin (3) Obesity: PLAN: Per primary service
[2021-10-26] MEDS: traMADol 50 MG Tablet PO ×2 (09:11→16:55)
[2021-10-26 09:15] VITALS: BP 135/57; PULSE 110; RESP 16; TEMP 36.8; O2SAT 97
--- NOTE | 2021-10-26 12:22 | PN.HOSP_ITS ---
Subjective Subjective Patient having some postoperative pain in her left leg as well as nausea induced by the narcotics. Antiemetics have helped. We will discontinue the morphine and continue her Ultram for now. She will likely need rehab prior to going home but she is going to be toe-touch weightbearing only and that left lower extr emity for 6 weeks. She was highly functional prior to the injury. Objective Data Objective Data Vital Signs: Vital Signs Temp Pulse Resp BP Pulse Ox O2 Del Method O2 Flow Rate 98.3 F 110 H 16 135/57 H 97 Room Air 2 10/26/21 09:15 10/26/21 09:15 10/26/21 09:15 10/26/21 09:15 10/26/21 09:15 10/26/21 09:15 10/26/21 07:31 Oxygen Flow Rate (L/min) 2 Oxygen Delivery Method Room Air Weight: 85.593 kg Body Mass Index (BMI) 33.0 Intake & Output: Intake and Output for Last 24 Hours 10/24/21 10/25/21 10/26/21 23:59 23:59 23:59 Intake Total 2085 / 2085 1428.34 / 1428.34 Output Total 2300 / 2300 1350 / 1350 Balance -215 / -215 78.34 / 78.34 Lab / Micro Data Result Diagrams: 10/26/21 06:07 10/26/21 06:07 Labs: Laboratory Results - last 24 hr 10/26/21 06:07: WBC 7.3, RBC 3.50 L, Hgb 11.5 L, Hct 32.8 L, MCV 93.7, MCH 32.9 H, MCHC 35.1 D, RDW Std Deviation 45.8 H, RDW Coeff of Garret 13.4, Plt Count 98 L , MPV 9.9, Immature Gran % (Auto) 0.300, Neut % (Auto) 87.4 H, Lymph % (Auto) 3.9 L, [place] % (Auto) 8.3, Eos % (Auto) 0.0, Baso % (Auto) 0.1, Absolute Neuts (auto) 6.4, Absolute Lymphs (auto) 0.28 L, Nucleated RBC % 0, Differential C omment COMMENT, Platelet Estimate MOD DEC 10/26/21 06:07: Sodium 141, Potassium 4.0, Chloride 108 H, Carbon Dioxide 26.0, Anion Gap 7, BUN 16, Creatinine 0.86, Estim Creat Clear Calc 45.32, Est GFR (MDRD) Af Amer 83, Est GFR (MDRD) Non-Af 68, BUN/Creatinine Ratio 18.7, Glucose 148 H, Calcium 8.8 Radiography Diagnostic Testing: Radiology Impression Femur X-Ray 10/25/21 16:10 IMPRESSION: Fluoroscopic support for femur internal fixation.. Please refer to orthopedic procedure note for real-time findings. Electronically Signed: Justus Hernandez MD at 0:52 EDT , Knee X-Ray 10/25/21 18:45 IMPRESSION: Status post ORIF distal femur fracture. Stable knee replacement. Electronically Signed: Chapin Melchor MD at 20:09 EDT Reading Location ID and State: [facility] / [place] , Service support , Femur X-Ray 10/25/21 22:25 IMPRESSION: Status post femoral internal fixation. Electronically Signed: Justus Hernandez MD at 0:59 EDT , Physical Exam Const alert, oriented x3, no apparent distress, healthy appearing and well nourished Constitutional Narrative: Obese, older white female, sitting up in bed, appears comfortable, nontoxic, ash sing at bedside HEENT head/scalp atraumatic, moist oral mucous membranes and oropharynx normal Resp normal respiratory effort, no retractions, no use of accessory muscles and clear to auscultation bilaterally Resp Narrative: Slightly diminished at bases bilaterally but clear Auscultation: Negative for crackles, rales, rhonchi or wheezes Cardio regular rhythm, S1 normal heart sound, S2 normal heart sound, no murmurs, no rub, no gallops, no clicks and no JVD Cardio Narrative: Mild tachycardia GI normal to inspection, nondistended, normoactive bowel sounds, soft to palpation, non-tender and non-distended Extremity Extremity Narrative: ANDREAS hose on bilateral lower extremities, postoperative dressing on left lower extremity is clean and dry, surrounding tenderness but no current ecchymosis Neuro oriented x3, CN's II-XII intact bilaterally and no focal motor deficits Neuro Narrative: Limited movement left lower extremity secondary to fracture in the left femur but otherwise moves all extremities symmetrically Sensorium / Orientation: awake, alert, oriented to person, oriented to place and oriented to time Speech: speech normal Psych affect normal Assessment & Plan Assessment/Plan (1) Closed left femoral fracture: (2) Acute anemia: (3) Thrombocytopenia: PLAN: Plan Left displaced oblique fracture of the mid femoral shaft proximal to the me dullary portion of the knee prosthesis -Postop day 1 ORIF left femoral shaft fracture -Postoperative PT and OT pending -Toe-touch weightbearing for 6 weeks -Xarelto x2 weeks followed by aspirin 81 mg twice daily for 2 weeks for DVT prophylaxis -Anticipate patient will need rehab following discharge--> patient highly functional prior to this and would recommend acute rehab unit--> will start pre- CERT soon with regards to discharge planning per discussion with case management/social work -Continue Ultram but discontinue morphine that she is having significant nausea with this -Continue antiemetics -Bowel regimen Mild postoperative anemia -May be somewhat delusional as patient is still on IV fluids -Discontinue IV fluids -Repeat CBC in a.m. -Hemoglobin is dropped less than 1 g Mild thrombocytopenia -Currently 98,000 -Was 770,000 yesterday -Suspect dilutional -Repeat CBC in a.m. 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
[2021-10-26] MEDS: Doxycycline 100 MG CAPSULE PO ×2 (12:49→21:27)
[2021-10-26] MEDS: Celecoxib 200 MG Capsule PO (12:49)
--- NOTE | 2021-10-26 14:28 | CASEMGMT ---
Social Work SW met with pt and pt spouse to discuss discharge plan. Pt feels she cannot return home at this time and will need to go to short term rehab prior to returning home. ADA provided pt with list of SNF providers including quality and resource use data and consistent with the patient's preferred geographic region, medcail needs and insurance network. Pt preferred provider is TCU. Referral made to [facility] in TCU and they are able to accept will start precert. Plan: TCU, pending precert MERRITT Galindo
[2021-10-26 15:15] VITALS: BP 100/53; PULSE 94; RESP 16; TEMP 36.9; O2SAT 95
[2021-10-26 15:46] VITALS: BMI 33.4
[2021-10-26 20:08] VITALS: BMI 33.4
[2021-10-26 21:23] VITALS: BP 103/51; PULSE 83; RESP 18; TEMP 36.6; O2SAT 93
[2021-10-27 00:19] VITALS: BMI 33.4
[2021-10-27 04:05] VITALS: BP 124/82; PULSE 91; RESP 16; TEMP 36.4; O2SAT 93
[2021-10-27] MEDS: 0.9% Saline Lock 10 ML Syringe IV ×2 (04:10→12:49)
[2021-10-27] MEDS: Ondansetron 4 MG/2 ML Vial IV ×2 (04:10→12:49)
[2021-10-27] MEDS: traMADol 50 MG Tablet PO (04:12)
[2021-10-27] MEDS: Rivaroxaban 10 MG Tablet PO (05:23)
[2021-10-27] MEDS: Acetaminophen 500 MG Tablet 1000 MG PO ×3 (05:24→22:11)
[2021-10-27 05:59] LABS: Absolute Lymphocyte Count 1.66 X10^3/uL (0.83-4.51); Absolute Neutrophil Count 4.9 X10^3/uL (2.0-7.7); Basophil# 0.04 X10^3/uL; Basophil% 0.5 % (0-1); Eosinophil# 0.08 X10^3/uL; Hematocrit 30.9 % (37-47); Hemoglobin 10.4 g/dL (12.0-15.0); Lymphocyte # 1.66 X10^3/ul (0.83-4.51); Lymphocyte % 21.5 % (19-41); Mean Corp Hgb Conc 33.7 g/dL (32-36); Mean Corpuscular Volume 95.1 fL (81-99); Mean Platelet Vol. 10.7 fl (6.2-12.0); Monocyte# 1.08 X10^3/uL; NRBC Flagged by Analyzer 0 % (0-5); Neutrophil # 4.85 X10^3/uL (2.7-7.7); Neutrophil % 62.7 % (47-70); POSITIVE COUNT YES; Platelet Count 94 K/mm3 (150-450); RBC Distribution Width CV 13.3 % (11.6-14.6); Red Blood Count 3.25 M/mm3 (4.2-5.4); White Blood Count 7.7 K/mm3 (4.4-11.0)
[2021-10-27 07:46] VITALS: O2SAT 91
[2021-10-27 08:37] VITALS: BP 118/62; PULSE 97; RESP 18; TEMP 36.8; O2SAT 93
[2021-10-27] MEDS: hydroCHLOROthiazide 25 MG Tablet PO (08:38)
[2021-10-27] MEDS: Lisinopril 5 MG Tablet PO (08:39)
[2021-10-27] MEDS: Celecoxib 200 MG Capsule PO (08:39)
[2021-10-27] MEDS: Doxycycline 100 MG CAPSULE PO ×2 (08:39→22:11)
[2021-10-27] MEDS: Senna/Docusate Sodium 1 Tablet 2 TABLET PO ×2 (08:39→22:11)
[2021-10-27] MEDS: Ensure Surgery 237 ML LIQUID PO (08:40)
--- NOTE | 2021-10-27 09:07 | NURSING ---
[place] cath taken out at this time. Encouraged water intake.
--- NOTE | 2021-10-27 11:16 | CASEMGMT ---
Social Work Pt and spouse updated that precert is still pending with insurance. Bed will be held in TCU until determination is made by insurance. Pt appreciative of update. Plan: TCU, pending precert MERRITT Galindo
[2021-10-27 14:30] VITALS: BP 120/60; PULSE 95; RESP 18; TEMP 36.7; O2SAT 97
--- NOTE | 2021-10-27 14:53 | NURSING ---
Pt has not voided post mayorga removal. Pt Attempted to void on BSC and unable to and felt uncomfortable. This RN had pt use TTWB precautions but had her walk to the bathroom using WW. Pt had to use warm water to start stream. Pt states she has a hard time peeing after surgery in the past. Pt voided but missed hat. This RN assisted pt back to bed and bladder scanned after voiding in toilet. Bladder scan was only 179cc. Pt encouraged to keep drinking water and will reassess around 6pm tonight.
--- NOTE | 2021-10-27 15:51 | PN.HOSP_ITS ---
Subjective Subjective States she had a okay night. She still having pain in that leg however more manageable with the Ultram. Her nausea has resolved. We discussed the plan for discharge to transitional care unit however we are currently waiting for pre- CERT from the insurance company. Patient and voiced understanding. Objective Data Objective Data Vital Signs: Vital Signs Temp Pulse Resp BP Pulse Ox O2 Del Method O2 Flow Rate 98.1 F 95 18 120/60 97 Room Air 2 10/27/21 14:30 10/27/21 14:30 10/27/21 14:30 10/27/21 14:30 10/27/21 14:30 10/27/21 14:30 10/26/21 07:31 Oxygen Flow Rate (L/min) 2 Oxygen Delivery Method Room Air Weight: 85.5 kg Body Mass Index (BMI) 33.0 Intake & Output: Intake and Output for Last 24 Hours 10/25/21 10/26/21 10/27/21 23:59 23:59 23:59 Intake Total 2085 / 2085 1528.34 / 1528.34 740 / 740 Output Total 2300 / 2300 1850 / 1850 600 / 600 Balance -215 / -215 -321.66 / -321.66 140 / 140 Lab / Micro Data Result Diagrams: 10/27/21 05:17 10/26/21 06:07 Labs: Laboratory Results - last 24 hr 10/27/21 05:17: WBC 7.7, RBC 3.25 L, Hgb 10.4 L, Hct 30.9 L, MCV 95.1, MCH 32.0, MCHC 33.7, RDW Std Deviation 46.0 H, RDW Coeff of Garret 13.3, Plt Count 94 L, MPV 10.7, Immature Gran % (Auto) 0.300, Neut % (Auto) 62.7, Lymph % (Auto) 21.5, M [place] % (Auto) 14.0 H, Eos % (Auto) 1.0, Baso % (Auto) 0.5, Absolute Neuts (auto) 4.9, Absolute Lymphs (auto) 1.66, Nucleated RBC % 0 Physical Exam Const alert, oriented x3, no apparent distress, healthy appearing and well nourished Constitutional Narrative: Obese, older white female, sitting up in bed, eating breakfast, at bedside, appears comfortable, nontoxic HEENT head/scalp atraumatic, moist oral mucous membranes and oropharynx normal Resp normal respiratory effort, no retractions, no use of accessory muscles and clear to auscultation bilaterally Auscultation: Negative for crackles, rales, rhonchi or wheezes Cardio regular rate, regular rhythm, S1 normal heart sound, S2 normal heart sound, no murmurs, no rub, no gallops, no clicks and no JVD GI normal to inspection, nondistended, normoactive bowel sounds, soft to palpation, non-tender and non-distended Extremity Extremity Narrative: ANDREAS hose on bilateral lower extremities, postoperative dressing on left lower extremity is clean and dry, surrounding tenderness but no current ecchymosis Neuro oriented x3, CN's II-XII intact bilaterally and no focal motor deficits Neuro Narrative: Limited movement left lower extremity secondary to fracture in the left femur but otherwise moves all extremities symmetrically Speech: speech normal Assessment & Plan Assessment/Plan (1) Closed left femoral fracture: (2) Acute anemia: (3) Thrombocytopenia: PLAN: Plan Left displaced oblique fracture of the mid femoral shaft proximal to the medullary portion of the knee prosthesis -Postop day 2 ORIF left femoral shaft fracture -Postoperative PT and OT pending -Toe-touch weightbearing for 6 weeks -Patient to be on doxycycline 100 mg p.o. twice daily as she has high risk for infection for 2 weeks post intervention -Xarelto x2 weeks followed by aspirin 81 mg twice daily for 2 weeks for DVT prophylaxis -Anticipate patient will need rehab following discharge--> patient highly functional prior to this and would recommend acute rehab unit--> will start pre- CERT soon with regards to discharge planning per discussion with case management/social work -Continue Ultram but discontinue morphine that she is having significant nausea with this -Continue antiemetics -Bowel regimen Mild postoperative anemia -Seems to be stabilizing -No need to repeat Mild thrombocytopenia -Stable -Suspect dilutional Hypertension -Continue home lisinopril and hydrochlorothiazide -As needed hydralazine available 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
[2021-10-27 20:45] VITALS: BP 111/72; PULSE 106; RESP 16; TEMP 36.8; O2SAT 96
[2021-10-28 03:00] VITALS: BP 116/64; PULSE 92; RESP 16; TEMP 36.5; O2SAT 95
[2021-10-28 06:29] LABS: Absolute Lymphocyte Count 1.78 X10^3/uL (0.83-4.51); Absolute Neutrophil Count 4.5 X10^3/uL (2.0-7.7); Basophil# 0.05 X10^3/uL; Basophil% 0.7 % (0-1); Eosinophil# 0.25 X10^3/uL; Eosinophils% 3.3 % (0-5); Hematocrit 31.7 % (37-47); Hemoglobin 10.7 g/dL (12.0-15.0); Lymphocyte # 1.78 X10^3/ul (0.83-4.51); Lymphocyte % 23.2 % (19-41); Mean Corp Hgb Conc 33.8 g/dL (32-36); Mean Corpuscular Hgb 32.2 pg (27.0-32.0); Mean Corpuscular Volume 95.5 fL (81-99); Mean Platelet Vol. 10.4 fl (6.2-12.0); Monocyte# 1.05 X10^3/uL; Monocyte% 13.7 % (0-10); NRBC Flagged by Analyzer 0 % (0-5); Neutrophil # 4.52 X10^3/uL (2.7-7.7); Neutrophil % 58.8 % (47-70); Platelet Count 117 K/mm3 (150-450); RBC Distribution Width CV 13.5 % (11.6-14.6); RBC Distribution Width SD 47.5 fl (35.1-43.9); Red Blood Count 3.32 M/mm3 (4.2-5.4); White Blood Count 7.7 K/mm3 (4.4-11.0)
--- NOTE | 2021-10-28 06:31 | PCM.PN.HOSP ---
Subjective Subjective Patient with no acute events overnight per self and per nursing report. Did discuss with staff and frankly they have noted she has been a little bit reticent to move therefore lengthy discussion with patient this morning about the importance of activity and she is amenable to being up in the chair especially with meals and understands that this is best for her especially given her postoperative history of DVTs. She does report discomfort to the left lower extremity and in the knee, aching, 4-5/10 in severity with recent pain regimen administered. Patient denies fevers, chills, nausea, emesis, abdominal pain, chest pain or dyspnea. Objective Data Objective Data Vital Signs: Vital Signs Temp Pulse Resp BP Pulse Ox O2 Del Method O2 Flow Rate 97.7 F L 92 16 116/64 95 Room Air 2 10/28/21 03:00 10/28/21 03:00 10/28/21 03:00 10/28/21 03:00 10/28/21 03:00 10/28/21 03:00 10/26/21 07:31 Oxygen Flow Rate (L/min) 2 Oxygen Delivery Method Room Air Weight: 190 lb 7.67 oz Body Mass Index (BMI) 33.0 Intake & Output: Intake and Output for Last 24 Hours 10/26/21 10/27/21 10/28/21 23:59 23:59 23:59 Intake Total 1528.34 / 1528.34 1100 / 1100 Output Total 1850 / 1850 850 / 1300 450 / 450 Balance -321.66 / -321.66 250 / -200 -450 / -450 Lab / Micro Data Result Diagrams: 10/28/21 05:27 10/28/21 05:27 Labs: Laboratory Results - last 24 hr 10/28/21 05:27: WBC 7.7, RBC 3.32 L, Hgb 10.7 L, Hct 31.7 L, MCV 95.5, MCH 32.2 H, MCHC 33.8, RDW Std Deviation 47.5 H, RDW Coeff of Garret 13.5, Plt Count 117 L, MPV 10.4, Immature Gran % (Auto) 0.300, Neut % (Auto) 58.8, Lymph % (Auto) 23.2, [place] % (Auto) 13.7 H, Eos % (Auto) 3.3, Baso % (Auto) 0.7, Absolute Neuts (auto) 4.5, Absolute Lymphs (auto) 1.78, Nucleated RBC % 0 Physical Exam Narrative Physical Examination: General: Awake, alert, oriented x 3 and cooperative, laying in MedSurg bed, fatigued, improved from prior presentation evaluation. Skin: Normal color, normal turgor, no icterus, no cyanosis except stated ecchymoses especially left lower extremity, incisions intact, dressing in place, no drainage. HEENT: AT/NC, EOMI, PERRLA, MMM. Lungs: Mild diminished, greater bases, appropriate for, no rales, ronchi or wheezing. Heart: Currently regular rate and rhythm; no gallop, rub audible. Abdomen: Soft, obese, NTTP, ND, normal BS. Extremities: No cyanosis, no clubbing, left lower extremity status post surgery, dressings in place, no drainage, edematous but not pitting. Neurological: Patient awake, alert, oriented as noted, cognitive function intact; pupils equally reactive to light and accommodation, cranial nerves II-XII grossly normal, moving all 4 extremities however significantly limited left lower extremity given recent fall with femoral fracture with operative repair, incision dressings in place with no drainage, strength improving, moderately to severely globally decreased. Psychiatric: Affect appears mildly fatigued otherwise normal, no acute evidence of depressive or anxiety feelings. Assessment & Plan Assessment/Plan (1) Closed left femoral fracture: PLAN: Plan The patient is a 76 y/o F w/ PMHx: HTN, PONV, Obesity, Hx remote DVT 1993 following Knee surgery (coumadin at that time, uses xarelto/eliquis post-op now) who presents to the [facility] as a direct admission from [facility] ED on 10/24/21 following mechanical fall with immediate LLE pain, deformity prompting ED evaluation reporting that she had been attempting to pull out her fridge to clean underneath it but accidentally pulled on the door instead of the outside of the fridge which immediately swung open causing her to fall backwards. #1. General debility, LLE pain s/p mechanical fall w/ the left lower extremity with a displaced and mildly angulated oblique fracture of the mid femur at the level of the proximal stent of the medullary portion of the knee prosthesis: Orthopedic surgery consulted from ED at outside facility. Patient was admitted to [place], [place] 10/25/21 Open reduction internal fixation left femoral shaft fracture, PT and OT following with planned TCU transition once cleared, post-operative plan of care includes xarelto 10 mg daily for 2 weeks followed by aspirin 81 mg for 2 weeks, plan doxycycline 100 mg twice daily x2 weeks as patient is high risk for infection following this type of procedure, toe-touch weightbearing with range of motion as tolerated of the knee with this to continue for at least 6 weeks, continue dressing intact x5 days as long as not saturated, change if saturated, dressing can be discontinued if incision remains clean and dry following this with plan follow-up with orthopedic surgery in 2 weeks for wound check and staple removal as well as radiographs. 10/28/2021 lengthy discussion with patient about importance of increasing activity to which she is amenable which was also reviewed with nursing staff especially given her history of postoperative DVT. #2. Hypertension: Continue home regimen including lisinopril and hydrochlorothiazide with hold parameters as needed, PRN hydralazine. #3. Significant PONV: Notable history, continue PRN Zofran and breakthrough Compazine if needed. #4. Obesity: Weight loss and lifestyle changes encouraged. #5. History DVT: Patient with history of DVT 1993 following knee surgery, maintained at that time on Coumadin, uses Xarelto versus Eliquis postoperative now with current plan as noted to continue post-op xarelto 10 mg daily for 2 weeks followed by aspirin 81 mg for 2 weeks. #6. DVT prophylaxis: SCDs, continued on xarelto as noted. #7. CODE status: Full Code. Charges/Coding Visit Charges Inpatient E&M: 67207 Subs Hosp L2
[2021-10-28] MEDS: Rivaroxaban 10 MG Tablet PO (06:54)
[2021-10-28] MEDS: Acetaminophen 500 MG Tablet 1000 MG PO ×3 (06:54→21:20)
[2021-10-28 06:57] LABS: ALB/GLOB Ratio 0.7 RATIO (0.9-2.4); AST(SGOT) 34 U/L (15-37); Alanine Aminotransfer ALT/SGPT 17 U/L (13-56); Albumin, Serum 2.4 g/dL (3.2-5.0); Alkaline Phosphatase 74 U/L (45-117); Anion Gap 2 (5-15); BUN 23 mg/dL (7-18); BUN/Creat Ratio 32.6 RATIO (10-20); Calcium,Total 9.5 mg/dL (8.5-10.1); Chloride 106 mmol/L (98-107); EST Glomerular Filtration Rate 86 mL/min (>60); Est Glom Filt Rate - Afr Amer 104 mL/min (>60); Estimated Creatinine Clearance 38.97 ml/min; Globulin 3.6 g/dL (2.2-4.2); Glucose 109 mg/dL (74-106); Potassium 3.8 mmol/L (3.5-5.1); Sodium Level 139 mmol/L (136-145)
[2021-10-28 07:57] VITALS: O2SAT 97
[2021-10-28 09:00] VITALS: BP 130/79; PULSE 101; RESP 18; TEMP 36.8; O2SAT 96
[2021-10-28] MEDS: Ondansetron 4 MG/2 ML Vial IV ×2 (09:30→21:20)
[2021-10-28] MEDS: 0.9% Saline Lock 10 ML Syringe IV ×3 (09:30→21:20)
[2021-10-28] MEDS: traMADol 50 MG Tablet PO (09:31)
[2021-10-28] MEDS: Senna/Docusate Sodium 1 Tablet 2 TABLET PO ×2 (09:31→21:20)
[2021-10-28] MEDS: Doxycycline 100 MG CAPSULE PO ×2 (09:32→21:20)
[2021-10-28] MEDS: Lisinopril 5 MG Tablet PO (09:33)
[2021-10-28] MEDS: Celecoxib 200 MG Capsule PO (09:33)
[2021-10-28] MEDS: hydroCHLOROthiazide 25 MG Tablet PO (09:33)
--- NOTE | 2021-10-28 13:59 | PCM.TXEXTCAR ---
Diet Diet Order/Speech Therapy: 10/26/21 06:48 Diet: Regular - General Is pt able to select menu?: Yes Diet Comments: . Routine Orders/Code Status Enema Type: Fleetz Enema Frequency: Daily PRN Suppository Type: Dulcolax 10mg Suppository Frequency: Daily PRN Routine Lab Work: - (Follow-up CBC, BMP in 1 week.) Code Status: Full Code Wound(s) l hip: Wound Type: Surgical Incision left femur: Wound Type: Surgical Incision Suggestions for Active Care Change Position every (hours): 2 Hours to sit in a chair: 4 Times a day to sit in chair: 3 Therapies Weight Bearing: Toe-touch weight bearing Extremity Affected:: Left Lower Physical Therapy: Eval and Treat Occupational Therapy: Eval and Treat Problem/Diagnosis (1) Closed left femoral fracture: Status: Acute Code(s): S72.92XA - Unspecified fracture of left femur, initial encounter for closed fracture Comment: The patient is a 76 y/o F w/ PMHx: HTN, PONV, Obesity, Hx remote DVT 1993 following Knee surgery (coumadin at that time, uses xarelto/eliquis post-op now) who presented to the [facility] as a direct admission from [facility] ED on 10/24/21 following mechanical fall with immediate LLE pain, deformity prompting ED evaluation reporting that she had been attempting to pull out her fridge to clean underneath it but accidentally pulled on the door instead of the outside of the fridge which immediately swung open causing her to fall backwards. Admitted for general debility, LLE pain s/p mechanical fall w/ the left lower extremity with a displaced and mildly angulated oblique fracture of the mid femur at the level of the proximal stent of the medullary portion of the knee prosthesis. Orthopedic surgery consulted from ED at outside facility. Patient was admitted to [facility], OR 10/25/21 Open reduction internal fixation left femoral shaft fracture, PT and OT following with planned TCU transition once cleared, post-operative plan of care includes xarelto 10 mg daily for 2 weeks followed by aspirin 81 mg for 2 weeks, plan doxycycline 100 mg twice daily x2 weeks as patient is high risk for infection following this type of procedure, toe-touch weightbearing with range of motion as tolerated of the knee with this to continue for at least 6 weeks, continue dressing intact x5 days as long as not saturated, change if saturated, dressing can be discontinued if incision remains clean and dry following this with plan follow-up with orthopedic surgery in 2 weeks for wound check and staple removal as well as radiographs. 10/28/2021 lengthy discussion with patient about importance of increasing activity to which she is amenable which was also reviewed with nursing staff especially given her history of postoperative DVT. Allergies/Procedures Done in Hospital Allergies hydrocodone [From [place]] Adverse Reaction (Intermediate, Verified 10/25/21 14:14) Vomiting ALSO NAUSEA morphine Adverse Reaction (Intermediate, Verified 10/25/21 14:14) Nausea/emesis nabumetone Adverse Reaction (Intermediate, Verified 10/25/21 14:14) Other DIZZINESS tramadol Adverse Reaction (Intermediate, Verified 10/25/21 14:14) Vomiting AND NAUSEA Procedures: EKG and - (10/25/21 ORIF L femoral shaft fracture by Dr. Alvarado.) Type of Care/Length of Stay Estimated LOS: Convalescent Care Less Than 30 days Type of Care Needed: Skilled Rehab Potential: Fair Prognosis: Fair Additional Orders/Day of Discharge Additional Orders: Post-operative plan of care includes: (1) Xarelto 10 mg daily for 2 weeks followed by aspirin 81 mg for 2 weeks (2) Doxycycline 100 mg twice daily x 2 weeks as patient is high risk for infection following this type of procedure (3) Toe-touch weightbearing with range of motion as tolerated of the knee to be continued for at least 6 weeks, (4) Continue dressing intact x5 days as long as not saturated, change if saturated, dressing can be discontinued if incision remains clean and dry following (5) Follow-up with orthopedic surgery in 2 weeks for wound check and staple removal as well as radiographs (6) Encourage ongoing IS 10x/hr 7a-7p and also frequent turn head and cough (7) STRONGLY encourage OOB to chair with ALL meals as well Day of Discharge: 10/29/21 Discharge Plan Admission Admit Date/Time: 10/24/21 13:26 Primary Reason for Your Visit: LLE mid femur Fx, Fall Attending Provider: Jennifer Grace Primary Care Provider: Kenny Mendenhall Consulting Providers: Victor Hugo Alvarado ; Jennifer Grace ; Brielle Bright Instructions Patient Instructions: Femur ORIF Additional Instructions / Restrictions: #1.? General debility, LLE pain s/p mechanical fall w/ the left lower extremity with a displaced and mildly angulated oblique fracture of the mid femur at the level of the proximal stent of the medullary portion of the knee prosthesis: OR 10/25/21 Open reduction internal fixation left femoral shaft fracture. Post-operative plan of care includes: (1) Xarelto 10 mg daily for 2 weeks followed by aspirin 81 mg for 2 weeks (2) Doxycycline 100 mg twice daily x 2 weeks as patient is high risk for infection following this type of procedure (3) Toe-touch weightbearing with range of motion as tolerated of the knee to be continued for at least 6 weeks, (4) Continue dressing intact x5 days as long as not saturated, change if saturated, dressing can be discontinued if incision remains clean and dry following (5) Follow-up with orthopedic surgery in 2 weeks for wound check and staple removal as well as radiographs Discharge Orders/Prescriptions Prescriptions: New sennosides-docusate sodium [Stool Softener-Stimulant Laxat] 8.6-50 mg Tablet 2 tab PO BID Qty: 0 0RF Xarelto 10 mg Tablet 10 mg PO 0600 14 Days Qty: 0 0RF Rx Instructions: Following 2 weeks transition to aspirin 81 mg daily x 2 weeks. nystatin [Nyamyc] 100,000 unit/gram Powder 1 applic topical TID 14 Days Qty: 0 0RF Protocol: *Topical Application Instructions APPLICATION INSTRUCTIONS: to affected regions Rx Instructions: Apply to affected region melatonin 3 mg Tablet 3 mg PO QHS PRN PRN (Reason: Insomnia) Qty: 0 0RF doxycycline monohydrate 100 mg Capsule 100 mg PO BID 14 Days Qty: 0 0RF alum-mag hydroxide-simeth [Mag-Al Plus Extra Strength] 400-400-40 mg/5 mL Suspension 30 ml PO Q6H PRN PRN (Reason: Gastric Burning) Qty: 0 0RF Ensure Surgery 0.08-1.4 gram-kcal/mL Liquid 237 ml PO TIDCM Qty: 0 0RF acetaminophen [Tylenol] 325 mg Tablet 650 mg PO Q4H PRN PRN (Reason: Fever, pain 1-10/10) Qty: 0 0RF tramadol 50 mg Tablet 50 - 100 mg PO Q6H PRN PRN (Reason: Pain Score 4-10) 5 Days Qty: 20 0RF Continued lisinopril 5 mg tablet 5 mg PO DAILY Label Comments: TAKE 1 TABLET BY MOUTH ONCE DAILY hydrochlorothiazide 25 mg tablet 25 mg PO DAILY Label Comments: TAKE 1 TABLET BY MOUTH ONCE DAILY celecoxib 200 mg capsule 200 mg PO DAILY Label Comments: TAKE 1 CAPSULE BY MOUTH ONCE DAILY WITH FOOD clobetasol 0.05 % ointment TOPICAL PRN (Reason: Vaginal Irritation) Label Comments: APPLY TO VULVA TWICE DAILY Referrals / Follow Up: Kenny Mendenhall MD [Primary Care Provider] - (Follow-up within 1-2 days SNF discharge.) Victor Hugo Alvarado MD [Med Staff - Active Staff] - (Follow-up in 2 weeks to have follow-up films, evaluation of incision and staple removal.) Disposition Disposition (needs filled in before D/C Order can be placed): [facility]
[2021-10-28 15:00] VITALS: BP 125/69; PULSE 93; RESP 18; TEMP 36.7; O2SAT 95
[2021-10-28] MEDS: Nystatin Powder 15gm Bottle 1 APPLIC TOPICAL ×2 (15:13→21:21)
[2021-10-28] MEDS: Ensure Surgery 237 ML LIQUID PO (17:54)
[2021-10-28 21:29] VITALS: BP 130/79; PULSE 99; RESP 16; TEMP 36.7; O2SAT 96
[2021-10-29] MEDS: Acetaminophen 325 MG Tablet 650 MG PO (03:29)
[2021-10-29] MEDS: proCHLORPERazine 10 MG/2 ML Vial 5 MG IV (03:29)
[2021-10-29 03:30] VITALS: BP 127/77; PULSE 101; RESP 16; TEMP 36.8; O2SAT 96
[2021-10-29] MEDS: 0.9% Saline Lock 10 ML Syringe IV ×3 (03:30→20:52)
[2021-10-29] MEDS: Mag Hydrox/Al Hydrox/Simeth 30 ML UDC PO (05:27)
[2021-10-29] MEDS: Rivaroxaban 10 MG Tablet PO (05:30)
[2021-10-29] MEDS: Nystatin Powder 15gm Bottle 1 APPLIC TOPICAL ×3 (05:30→21:02)
[2021-10-29 06:14] LABS: Absolute Lymphocyte Count 1.41 X10^3/uL (0.83-4.51); Absolute Neutrophil Count 4.5 X10^3/uL (2.0-7.7); Basophil# 0.03 X10^3/uL; Basophil% 0.4 % (0-1); Eosinophils% 4.2 % (0-5); Hematocrit 31.8 % (37-47); Lymphocyte # 1.41 X10^3/ul (0.83-4.51); Lymphocyte % 19.6 % (19-41); Mean Corp Hgb Conc 34.6 g/dL (32-36); Mean Corpuscular Hgb 32.4 pg (27.0-32.0); Mean Corpuscular Volume 93.8 fL (81-99); Monocyte# 0.92 X10^3/uL; Monocyte% 12.8 % (0-10); NRBC Flagged by Analyzer 0 % (0-5); Neutrophil # 4.52 X10^3/uL (2.7-7.7); Neutrophil % 62.6 % (47-70); Platelet Count 147 K/mm3 (150-450); RBC Distribution Width CV 13.6 % (11.6-14.6); RBC Distribution Width SD 46.2 fl (35.1-43.9); Red Blood Count 3.39 M/mm3 (4.2-5.4); White Blood Count 7.2 K/mm3 (4.4-11.0)
--- NOTE | 2021-10-29 06:24 | PN.HOSP_ITS ---
Subjective Subjective Patient with no acute events overnight per self and per nursing report. Patient up in the bed surgical floor chair at the bedside this morning and encourage she continue to be more active with therapies and staff. Patient is been reticent secondary to discomfort but currently states it is controlled. Patient und erstands currently awaiting precertification for skilled transition. Patient denies fevers, chills, nausea, emesis, abdominal pain, chest pain or dyspnea. Objective Data Objective Data Vital Signs: Vital Signs Temp Pulse Resp BP Pulse Ox O2 Del Method O2 Flow Rate 98.2 F 101 H 16 127/77 H 96 Room Air 2 10/29/21 03:30 10/29/21 03:30 10/29/21 03:30 10/29/21 03:30 10/29/21 03:30 10/29/21 03:30 10/26/21 07:31 Oxygen Flow Rate (L/min) 2 Oxygen Delivery Method Room Air Weight: 190 lb 7.67 oz Body Mass Index (BMI) 33.0 Intake & Output: Intake and Output for Last 24 Hours 10/27/21 10/28/21 10/29/21 23:59 23:59 23:59 Intake Total 1100 / 1100 820 / 820 Output Total 850 / 1300 1300 / 1300 Balance 250 / -200 -480 / -480 Lab / Micro Data Result Diagrams: 10/29/21 05:40 10/29/21 05:40 Labs: Laboratory Results - last 24 hr 10/28/21 05:27: WBC 7.7, RBC 3.32 L, Hgb 10.7 L, Hct 31.7 L, MCV 95.5, MCH 32.2 H, MCHC 33.8, RDW Std Deviation 47.5 H, RDW Coeff of Garret 13.5, Plt Count 117 L, MPV 10.4, Immature Gran % (Auto) 0.300, Neut % (Auto) 58.8, Lymph % (Auto) 23.2, [place] % (Auto) 13.7 H, Eos % (Auto) 3.3, Baso % (Auto) 0.7, Absolute Neuts (auto) 4.5, Absolute Lymphs (auto) 1.78, Nucleated RBC % 0 10/28/21 05:27: Sodium 139, Potassium 3.8, Chloride 106, Carbon Dioxide 31.0, Anion Gap 2 L, BUN 23 H, Creatinine 0.70, Estim Creat Clear Calc 38.97, Est GFR (MDRD) Af Amer 104, Est GFR (MDRD) Non-Af 86, BUN/Creatinine Ratio 32.6 H, Glucose 109 H, Calcium 9.5, Total Bilirubin 0.90, AST 34, ALT 17, Alkaline Phosphatase 74, Total Protein 6.0 L, Albumin 2.4 L, Globulin 3.6, Albumin/Globulin Ratio 0.7 L 10/29/21 05:40: WBC 7.2, RBC 3.39 L, Hgb 11.0 L, Hct 31.8 L, MCV 93.8, MCH 32.4 H, MCHC 34.6, RDW Std Deviation 46.2 H, RDW Coeff of Garret 13.6, Plt Count 147 L, MPV 10.0, Immature Gran % (Auto) 0.400, Neut % (Auto) 62.6, Lymph % (Auto) 19.6, [place] % (Auto) 12.8 H, Eos % (Auto) 4.2, Baso % (Auto) 0.4, Absolute Neuts (auto) 4.5, Absolute Lymphs (auto) 1.41, Nucleated RBC % 0 Physical Exam Narrative Physical Examination: General: Awake, alert, oriented x 3 and cooperative, seated upright in the PR bedside chair, more alert than day prior Skin: Normal color, normal turgor, no icterus, no cyanosis except stated ecchymoses especially left lower extremity, incisions intact, dressing in place, no drainage. HEENT: AT/NC, EOMI, PERRLA, MMM. Lungs: Mild diminished, greater bases, appropriate for, no rales, ronchi or wheezing. Heart: Currently regular rate and rhythm; no gallop, rub audible. Abdomen: Soft, obese, NTTP, ND, normal BS. Extremities: No cyanosis, no clubbing, left lower extremity status post surgery, dressings in place, no drainage, edema lessening. Neurological: Patient awake, alert, oriented as noted, cognitive function intact; pupils equally reactive to light and accommodation, cranial nerves II- XII grossly normal, moving all 4 extremities however significantly limited left lower extremity given recent fall with femoral fracture with operative repair but seems to be improving, up in the chair this a.m.,, incision dressings in place with no drainage, strength moderately to severely globally decreased. Psychiatric: Affect appears less fatigued, no acute evidence of depressive or anxiety feelings. Assessment & Plan Assessment/Plan (1) Closed left femoral fracture: PLAN: Plan The patient is a 76 y/o F w/ PMHx: HTN, PONV, Obesity, Hx remote DVT 1993 following Knee surgery (coumadin at that time, uses xarelto/eliquis post-op now) who presents to the [facility] as a direct admission from [facility] ED on 10/24/21 following mechanical fall with immediate LLE pain, deformity prompting ED evaluation reporting that she had been attempting to pull out her fridge to clean underneath it but accidentally pulled on the door instead of the outside of the fridge which immediately swung open causing her to fall backwards. #1. General debility, LLE pain s/p mechanical fall w/ the left lower extremity with a displaced and mildly angulated oblique fracture of the mid femur at the level of the proximal stent of the medullary portion of the knee prosthesis: Orthopedic surgery consulted from ED at outside facility. Patient was admitted t o [facility], OR 10/25/21 Open reduction internal fixation left femoral shaft fracture, PT and OT following with planned TCU transition once cleared, post-operative plan of care includes xarelto 10 mg daily for 2 weeks followed by aspirin 81 mg for 2 weeks, plan doxycycline 100 mg twice daily x2 weeks as patient is high risk for infection following this type of procedure, toe-touch weightbearing with range of motion as tolerated of the knee with this to continue for at least 6 weeks, continue dressing intact x5 days as long as not saturated, change if saturated, dressing can be discontinued if incision remains clean and dry following this with plan follow-up with orthopedic surgery in 2 weeks for wound check and staple removal as well as radiographs. Still awaiting precertification, transfer summary already performed and [facility] for skilled transition in place as well once bed available. #2. Hypertension: Continue home regimen including lisinopril and hydrochlorothiazide with hold parameters as needed, PRN hydralazine. #3. Significant PONV: Notable history, continue PRN Zofran and breakthrough Compazine if needed. #4. Obesity: Weight loss and lifestyle changes encouraged. #5. History DVT: Patient with history of DVT 1993 following knee surgery, maintained at that time on Coumadin, uses Xarelto versus Eliquis postoperative now with current plan as noted to continue post-op xarelto 10 mg daily for 2 weeks followed by aspirin 81 mg for 2 weeks. #6. DVT prophylaxis: SCDs, continued on xarelto as noted. #7. CODE status: Full Code. Charges/Coding Visit Charges Inpatient E&M: 23762 Subs Hosp L2
[2021-10-29 06:48] LABS: ALB/GLOB Ratio 0.6 RATIO (0.9-2.4); AST(SGOT) 36 U/L (15-37); Alanine Aminotransfer ALT/SGPT 23 U/L (13-56); Albumin, Serum 2.5 g/dL (3.2-5.0); Alkaline Phosphatase 79 U/L (45-117); Anion Gap 6 (5-15); BUN 20 mg/dL (7-18); BUN/Creat Ratio 31.3 RATIO (10-20); Calcium,Total 9.3 mg/dL (8.5-10.1); Chloride 103 mmol/L (98-107); Creatinine, Serum 0.64 mg/dL (0.55-1.02); EST Glomerular Filtration Rate 96 mL/min (>60); Est Glom Filt Rate - Afr Amer 116 mL/min (>60); Estimated Creatinine Clearance 38.97 ml/min; Glucose 112 mg/dL (74-106); Potassium 3.3 mmol/L (3.5-5.1); Protein, Total 6.5 g/dL (6.4-8.2); Sodium Level 138 mmol/L (136-145)
[2021-10-29 08:32] VITALS: O2SAT 95
[2021-10-29] MEDS: Ensure Surgery 237 ML LIQUID PO ×3 (10:43→18:27)
[2021-10-29] MEDS: Senna/Docusate Sodium 1 Tablet 2 TABLET PO ×2 (10:44→20:54)
[2021-10-29] MEDS: Doxycycline 100 MG CAPSULE PO ×2 (10:44→20:53)
[2021-10-29] MEDS: Celecoxib 200 MG Capsule PO (10:44)
[2021-10-29] MEDS: hydroCHLOROthiazide 25 MG Tablet PO (10:44)
[2021-10-29] MEDS: Lisinopril 5 MG Tablet PO (10:44)
[2021-10-29 11:14] VITALS: BP 151/85; PULSE 107; RESP 16; TEMP 36.8; O2SAT 97
[2021-10-29] MEDS: Ondansetron 4 MG/2 ML Vial IV ×2 (11:15→20:46)
[2021-10-29] MEDS: traMADol 50 MG Tablet PO (11:15)
[2021-10-29] MEDS: Acetaminophen 500 MG Tablet 1000 MG PO ×2 (13:30→20:53)
[2021-10-29 18:32] VITALS: BP 119/67; PULSE 102; RESP 19; TEMP 37.6; O2SAT 94
[2021-10-29] MEDS: MELATONIN 3 MG TABLET PO (20:54)
[2021-10-29 21:01] VITALS: BP 129/76; PULSE 95; RESP 18; TEMP 36.9; O2SAT 95
[2021-10-30 03:00] VITALS: BP 109/66; PULSE 100; RESP 18; TEMP 36.6; O2SAT 94
[2021-10-30] MEDS: Acetaminophen 500 MG Tablet 1000 MG PO ×2 (05:07→13:02)
[2021-10-30] MEDS: Rivaroxaban 10 MG Tablet PO (05:07)
[2021-10-30] MEDS: Nystatin Powder 15gm Bottle 1 APPLIC TOPICAL ×2 (05:07→13:03)
[2021-10-30 07:04] LABS: Absolute Lymphocyte Count 1.58 X10^3/uL (0.83-4.51); Absolute Neutrophil Count 3.1 X10^3/uL (2.0-7.7); Basophil# 0.04 X10^3/uL; Basophil% 0.7 % (0-1); Eosinophils% 4.9 % (0-5); Hemoglobin 10.3 g/dL (12.0-15.0); Lymphocyte # 1.58 X10^3/ul (0.83-4.51); Lymphocyte % 25.9 % (19-41); Mean Corp Hgb Conc 34.3 g/dL (32-36); Mean Corpuscular Hgb 32.2 pg (27.0-32.0); Mean Corpuscular Volume 93.8 fL (81-99); Mean Platelet Vol. 9.9 fl (6.2-12.0); Monocyte% 16.4 % (0-10); NRBC Flagged by Analyzer 0.3 % (0-5); Neutrophil # 3.13 X10^3/uL (2.7-7.7); Neutrophil % 51.4 % (47-70); Platelet Count 173 K/mm3 (150-450); RBC Distribution Width CV 13.5 % (11.6-14.6); RBC Distribution Width SD 46.2 fl (35.1-43.9); White Blood Count 6.1 K/mm3 (4.4-11.0)
[2021-10-30 07:33] LABS: ALB/GLOB Ratio 0.6 RATIO (0.9-2.4); AST(SGOT) 38 U/L (15-37); Alanine Aminotransfer ALT/SGPT 25 U/L (13-56); Albumin, Serum 2.3 g/dL (3.2-5.0); Alkaline Phosphatase 71 U/L (45-117); Anion Gap 3 (5-15); BUN 21 mg/dL (7-18); BUN/Creat Ratio 29.2 RATIO (10-20); Calcium,Total 9.3 mg/dL (8.5-10.1); Chloride 103 mmol/L (98-107); Creatinine, Serum 0.72 mg/dL (0.55-1.02); EST Glomerular Filtration Rate 84 mL/min (>60); Est Glom Filt Rate - Afr Amer 101 mL/min (>60); Estimated Creatinine Clearance 38.97 ml/min; Globulin 3.8 g/dL (2.2-4.2); Glucose 107 mg/dL (74-106); Potassium 3.7 mmol/L (3.5-5.1); Protein, Total 6.1 g/dL (6.4-8.2); Sodium Level 138 mmol/L (136-145)
[2021-10-30 07:50] VITALS: O2SAT 94
[2021-10-30] MEDS: 0.9% Saline Lock 10 ML Syringe IV ×2 (08:36→12:58)
[2021-10-30] MEDS: Ondansetron 4 MG/2 ML Vial IV (08:36)
--- NOTE | 2021-10-30 08:46 | PCM.PN.HOSP ---
Subjective Subjective Feels well. Some discomfort in LLE. Objective Data Objective Data Vital Signs: Vital Signs Temp Pulse Resp BP Pulse Ox O2 Del Method O2 Flow Rate 36.6 C 100 18 109/66 94 Room Air 2 10/30/21 03:00 10/30/21 03:00 10/30/21 03:00 10/30/21 03:00 10/30/21 07:50 10/30/21 07:50 10/26/21 07:31 Oxygen Flow Rate (L/min) 2 Oxygen Delivery Method Room Air Weight: 86.9 kg Body Mass Index (BMI) 33.0 Intake & Output: Intake and Output for Last 24 Hours 10/28/21 10/29/21 10/30/21 23:59 23:59 23:59 Intake Total 820 / 820 640 / 640 Output Total 1300 / 1300 Balance -480 / -480 640 / 640 Lab / Micro Data Result Diagrams: 10/30/21 06:35 10/30/21 06:35 Labs: Laboratory Results - last 24 hr 10/30/21 06:35: WBC 6.1, RBC 3.20 L, Hgb 10.3 L, Hct 30.0 L, MCV 93.8, MCH 32.2 H, MCHC 34.3, RDW Std Deviation 46.2 H, RDW Coeff of Garret 13.5, Plt Count 173, MPV 9.9, Immature Gran % (Auto) 0.700, Neut % (Auto) 51.4, Lymph % (Auto) 25.9, [place] % (Auto) 16.4 H, Eos % (Auto) 4.9, Baso % (Auto) 0.7, Absolute Neuts (auto) 3.1, Absolute Lymphs (auto) 1.58, Nucleated RBC % 0.3 10/30/21 06:35: Sodium 138, Potassium 3.7, Chloride 103, Carbon Dioxide 32.0, Anion Gap 3 L, BUN 21 H, Creatinine 0.72, Estim Creat Clear Calc 38.97, Est GFR (MDRD) Af Amer 101, Est GFR (MDRD) Non-Af 84, BUN/Creatinine Ratio 29.2 H, Glucose 107 H, Calcium 9.3, Total Bilirubin 1.10 H, AST 38 H, ALT 25, Alkaline Phosphatase 71, Total Protein 6.1 L, Albumin 2.3 L, Globulin 3.8, Albumin/Globulin Ratio 0.6 L Physical Exam Const alert and no apparent distress Resp normal respiratory effort, no retractions, no use of accessory muscles and clear to auscultation bilaterally Cardio regular rate, regular rhythm, S1 normal heart sound and S2 normal heart sound GI normal to inspection, nondistended, normoactive bowel sounds Extremity Extremity Narrative: incision on LLE covered with bandage that was partially staturated with blood. surrounding ecchymosis. Assessment & Plan Assessment/Plan (1) Closed left femoral fracture: QUALIFIERS: Encounter type: initial encounter Femur location: unspecified portion of femur PLAN: LLE pain s/p mechanical fall w/ the left lower extremity with a displaced and mildly angulated oblique fracture of the mid femur at the level of the proximal stent of the medullary portion of the knee prosthesis: Orthopedic surgery consulted from ED at outside facility. Patient was admitted to [facility], OR 10/25/21 Open reduction internal fixation left femoral shaft fracture, PT and OT following with planned TCU transition once cleared, post-operative plan of care includes xarelto 10 mg daily for 2 weeks followed by aspirin 81 mg for 2 weeks, plan doxycycline 100 mg twice daily x2 weeks as patient is high risk for infection following this type of procedure, toe-touch weightbearing with range of motion as tolerated of the knee with this to continue for at least 6 weeks, continue dressing intact x5 days as long as not saturated, change if saturated, dressing can be discontinued if incision remains clean and dry following this with plan follow-up with orthopedic surgery in 2 weeks for wound check and staple removal as well as radiographs. (2) Debility: PLAN: Still awaiting precertification, transfer summary already performed and [facility] for skilled transition in place as well once bed available. PLAN: Plan Chronic conditions: Hypertension: Continue home regimen including lisinopril and hydrochlorothiazide with hold parameters as needed, PRN hydralazine. Significant PONV: Notable history, continue PRN Zofran and breakthrough Compazine if needed. Obesity: Weight loss and lifestyle changes encouraged. History DVT: Patient with history of DVT 1993 following knee surgery, maintained at that time on Coumadin, uses Xarelto versus Eliquis postoperative now with current plan as noted to continue post-op xarelto 10 mg daily for 2 weeks followed by aspirin 81 mg for 2 weeks. DVT prophylaxis: SCDs, continued on xarelto as noted. CODE status: Full Code. DC to TCU today
[2021-10-30] MEDS: traMADol 50 MG Tablet PO (08:47)
[2021-10-30] MEDS: hydroCHLOROthiazide 25 MG Tablet PO (08:48)
[2021-10-30] MEDS: Lisinopril 5 MG Tablet PO (08:48)
[2021-10-30] MEDS: Doxycycline 100 MG CAPSULE PO (08:48)
[2021-10-30] MEDS: Celecoxib 200 MG Capsule PO (08:48)
[2021-10-30] MEDS: Senna/Docusate Sodium 1 Tablet 2 TABLET PO (08:48)
[2021-10-30 08:56] VITALS: BP 140/74; PULSE 101; RESP 18; TEMP 36.6; O2SAT 95
--- NOTE | 2021-10-30 09:09 | CASEMGMT ---
Social Work Per Danae in TCU, precert has been obtained and pt can go to TCU today. Physician updated. MERRITT Galindo
--- NOTE | 2021-10-30 10:49 | PCM.TXEXTCAR ---
Diet Diet Order/Speech Therapy: 10/26/21 06:48 Diet: Regular - General Is pt able to select menu?: Yes Diet Comments: . Routine Orders/Code Status Enema Type: Fleetz Enema Frequency: Daily PRN Suppository Type: Dulcolax 10mg Suppository Frequency: Daily PRN Routine Lab Work: - (Follow-up CBC, BMP in 1 week.) Code Status: Full Code Wound(s) l hip: Wound Type: Surgical Incision left femur: Wound Type: Surgical Incision Suggestions for Active Care Change Position every (hours): 2 Hours to sit in a chair: 4 Times a day to sit in chair: 3 Therapies Weight Bearing: Toe-touch weight bearing Extremity Affected:: Left Lower Physical Therapy: Eval and Treat Occupational Therapy: Eval and Treat Problem/Diagnosis (1) Closed left femoral fracture: Status: Acute Code(s): S72.92XA - Unspecified fracture of left femur, initial encounter for closed fracture Plan: LLE pain s/p mechanical fall w/ the left lower extremity with a displaced and mildly angulated oblique fracture of the mid femur at the level of the proximal stent of the medullary portion of the knee prosthesis: Orthopedic surgery consulted from ED at outside facility. Patient was admitted to [place], [place] 10/25/21 Open reduction internal fixation left femoral shaft fracture, PT and OT following with planned TCU transition once cleared, post-operative plan of care includes xarelto 10 mg daily for 2 weeks followed by aspirin 81 mg for 2 weeks, plan doxycycline 100 mg twice daily x2 weeks as patient is high risk for infection following this type of procedure, toe-touch weightbearing with range of motion as tolerated of the knee with this to continue for at least 6 weeks, continue dressing intact x5 days as long as not saturated, change if saturated, dressing can be discontinued if incision remains clean and dry following this with plan follow-up with orthopedic surgery in 2 weeks for wound check and staple removal as well as radiographs. Comment: The patient is a 76 y/o F w/ PMHx: HTN, PONV, Obesity, Hx remote DVT 1993 following Knee surgery (coumadin at that time, uses xarelto/eliquis post-op now) who presented to the [facility] as a direct admission from [facility] ED on 10/24/21 following mechanical fall with immediate LLE pain, deformity prompting ED evaluation reporting that she had been attempting to pull out her fridge to clean underneath it but accidentally pulled on the door instead of the outside of the fridge which immediately swung open causing her to fall backwards. Admitted for general debility, LLE pain s/p mechanical fall w/ the left lower extremity with a displaced and mildly angulated oblique fracture of the mid femur at the level of the proximal stent of the medullary portion of the knee prosthesis. Orthopedic surgery consulted from ED at outside facility. Patient was admitted to [place], [place] 10/25/21 Open reduction internal fixation left femoral shaft fracture, PT and OT following with planned TCU transition once cleared, post-operative plan of care includes xarelto 10 mg daily for 2 weeks followed by aspirin 81 mg for 2 weeks, plan doxycycline 100 mg twice daily x2 weeks as patient is high risk for infection following this type of procedure, toe-touch weightbearing with range of motion as tolerated of the knee with this to continue for at least 6 weeks, continue dressing intact x5 days as long as not saturated, change if saturated, dressing can be discontinued if incision remains clean and dry following this with plan follow-up with orthopedic surgery in 2 weeks for wound check and staple removal as well as radiographs. 10/28/2021 lengthy discussion with patient about importance of increasing activity to which she is amenable which was also reviewed with nursing staff especially given her history of postoperative DVT. (2) Debility: Status: Acute Code(s): R53.81 - Other malaise Plan: Still awaiting precertification, transfer summary already performed and the [facility] for skilled transition in place as well once bed available. Plan Chronic conditions: Hypertension: Continue home regimen including lisinopril and hydrochlorothiazide with hold parameters as needed, PRN hydralazine. Significant PONV: Notable history, continue PRN Zofran and breakthrough Compazine if needed. Obesity: Weight loss and lifestyle changes encouraged. History DVT: Patient with history of DVT 1993 following knee surgery, maintained at that time on Coumadin, uses Xarelto versus Eliquis postoperative now with current plan as noted to continue post-op xarelto 10 mg daily for 2 weeks followed by aspirin 81 mg for 2 weeks. DVT prophylaxis: SCDs, continued on xarelto as noted. CODE status: Full Code. DC to TCU today Allergies/Procedures Done in Hospital Allergies hydrocodone [From [place]] Adverse Reaction (Intermediate, Verified 10/25/21 14:14) Vomiting ALSO NAUSEA morphine Adverse Reaction (Intermediate, Verified 10/25/21 14:14) Nausea/emesis nabumetone Adverse Reaction (Intermediate, Verified 10/25/21 14:14) Other DIZZINESS tramadol Adverse Reaction (Intermediate, Verified 10/25/21 14:14) Vomiting AND NAUSEA Procedures: EKG and - (10/25/21 ORIF L femoral shaft fracture by Dr. Alvarado.) Type of Care/Length of Stay Estimated LOS: Convalescent Care Less Than 30 days Type of Care Needed: Skilled Rehab Potential: Fair Prognosis: Fair Additional Orders/Day of Discharge Additional Orders: Post-operative plan of care includes: (1) Xarelto 10 mg daily for 2 weeks followed by aspirin 81 mg for 2 weeks (2) Doxycycline 100 mg twice daily x 2 weeks as patient is high risk for infection following this type of procedure (3) Toe-touch weightbearing with range of motion as tolerated of the knee to be continued for at least 6 weeks, (4) Continue dressing intact x5 days as long as not saturated, change if saturated, dressing can be discontinued if incision remains clean and dry following (5) Follow-up with orthopedic surgery in 2 weeks for wound check and staple removal as well as radiographs (6) Encourage ongoing IS 10x/hr 7a-7p and also frequent turn head and cough (7) STRONGLY encourage OOB to chair with ALL meals as well Day of Discharge: 10/29/21 Discharge Plan Admission Admit Date/Time: 10/24/21 13:26 Primary Reason for Your Visit: LLE mid femur Fx, Fall Attending Provider: Jhony Emery Primary Care Provider: Kenny Mendenhall Consulting Providers: Victor Hugo Alvarado ; Jennifer Grace ; Brielle Bright Instructions Patient Instructions: Femur ORIF Additional Instructions / Restrictions: #1.? General debility, LLE pain s/p mechanical fall w/ the left lower extremity with a displaced and mildly angulated oblique fracture of the mid femur at the level of the proximal stent of the medullary portion of the knee prosthesis: [place] 10/25/21 Open reduction internal fixation left femoral shaft fracture. Post-operative plan of care includes: (1) Xarelto 10 mg daily for 2 weeks followed by aspirin 81 mg for 2 weeks (2) Doxycycline 100 mg twice daily x 2 weeks as patient is high risk for infection following this type of procedure (3) Toe-touch weightbearing with range of motion as tolerated of the knee to be continued for at least 6 weeks, (4) Continue dressing intact x5 days as long as not saturated, change if saturated, dressing can be discontinued if incision remains clean and dry following (5) Follow-up with orthopedic surgery in 2 weeks for wound check and staple removal as well as radiographs Discharge Orders/Prescriptions Prescriptions: New sennosides-docusate sodium [Stool Softener-Stimulant Laxat] 8.6-50 mg Tablet 2 tab PO BID Qty: 0 0RF Xarelto 10 mg Tablet 10 mg PO 0600 14 Days Qty: 0 0RF Rx Instructions: Following 2 weeks transition to aspirin 81 mg daily x 2 weeks. nystatin [Nyamyc] 100,000 unit/gram Powder 1 applic topical TID 14 Days Qty: 0 0RF Protocol: *Topical Application Instructions APPLICATION INSTRUCTIONS: to affected regions Rx Instructions: Apply to affected region melatonin 3 mg Tablet 3 mg PO QHS PRN PRN (Reason: Insomnia) Qty: 0 0RF doxycycline monohydrate 100 mg Capsule 100 mg PO BID 14 Days Qty: 0 0RF alum-mag hydroxide-simeth [Mag-Al Plus Extra Strength] 400-400-40 mg/5 mL Suspension 30 ml PO Q6H PRN PRN (Reason: Gastric Burning) Qty: 0 0RF Ensure Surgery 0.08-1.4 gram-kcal/mL Liquid 237 ml PO TIDCM Qty: 0 0RF acetaminophen [Tylenol] 325 mg Tablet 650 mg PO Q4H PRN PRN (Reason: Fever, pain 1-10/10) Qty: 0 0RF tramadol 50 mg Tablet 50 - 100 mg PO Q6H PRN PRN (Reason: Pain Score 4-10) 5 Days Qty: 20 0RF Continued lisinopril 5 mg tablet 5 mg PO DAILY Label Comments: TAKE 1 TABLET BY MOUTH ONCE DAILY hydrochlorothiazide 25 mg tablet 25 mg PO DAILY Label Comments: TAKE 1 TABLET BY MOUTH ONCE DAILY celecoxib 200 mg capsule 200 mg PO DAILY Label Comments: TAKE 1 CAPSULE BY MOUTH ONCE DAILY WITH FOOD clobetasol 0.05 % ointment TOPICAL PRN (Reason: Vaginal Irritation) Label Comments: APPLY TO VULVA TWICE DAILY Referrals / Follow Up: Kenny Mendenhall MD [Primary Care Provider] - (Follow-up within 1-2 days SNF discharge.) Victor Hugo Alvarado MD [Med Staff - Active Staff] - (Follow-up in 2 weeks to have follow-up films, evaluation of incision and staple removal.) Disposition Disposition (needs filled in before D/C Order can be placed): [facility] (1) Closed left femoral fracture Qualifiers: Encounter type: initial encounter Femur location: unspecified portion of femur
--- NOTE | 2021-10-30 10:51 | DS.PCM_ITS ---
Providers Date of Admission: 10/24/21 Primary Care Physician: Dr. Kenny Mendenhall MD Consultations 10/24/21 13:24 Consult: Orthopedics Routine Consulting Provider: Victor Hugo Alvarado Reason for Consult: Fall, periprosthetic femur fx. EMERGENT Consult: No MD Notified: Yes Date Notified: 10/24/21 Time Notified: 13:27 Method of Notification: ED Physician Initiated Reason For Visit: FEMOR FRACTURE Diagnosis Discharge Diagnosis (1) Closed left femoral fracture: Status: Acute Code(s): S72.92XA - Unspecified fracture of left femur, initial encounter for closed fracture Qualifiers: Encounter type: initial encounter Femur location: unspecified portion of femur Plan: LLE pain s/p mechanical fall w/ the left lower extremity with a displaced and mildly angulated oblique fracture of the mid femur at the level of the proximal stent of the medullary portion of the knee prosthesis: Orthopedic surgery consulted from ED at outside facility. Patient was admitted [place] 10/25/21 Open reduction internal fixation left femoral shaft fracture, PT and OT followin g with planned TCU transition once cleared, post-operative plan of care includes xarelto 10 mg daily for 2 weeks followed by aspirin 81 mg for 2 weeks, plan doxycycline 100 mg twice daily x2 weeks as patient is high risk for infection following this type of procedure, toe-touch weightbearing with range of motion as tolerated of the knee with this to continue for at least 6 weeks, continue dressing intact x5 days as long as not saturated, change if saturated, dressing can be discontinued if incision remains clean and dry following this with plan follow-up with orthopedic surgery in 2 weeks for wound check and staple removal as well as radiographs. (2) Debility: Status: Acute Code(s): R53.81 - Other malaise Plan: Still awaiting precertification, transfer summary already performed and med rec for skilled transition in place as well once bed available. Plan Chronic conditions: * Hypertension: Continue home regimen including lisinopril and hydrochlorothiazide with hold parameters as needed, PRN hydralazine. * Significant PONV: Notable history, continue PRN Zofran and breakthrough Comp azine if needed. * Obesity: Weight loss and lifestyle changes encouraged. * History DVT: Patient with history of DVT 1993 following knee surgery, maintained at that time on Coumadin, uses Xarelto versus Eliquis postoperative now with current plan as noted to continue post-op xarelto 10 mg daily for 2 weeks followed by aspirin 81 mg for 2 weeks. DVT prophylaxis: SCDs, continued on xarelto as noted. CODE status: Full Code. DC to TCU today Medications at Discharge Home Medications celecoxib 200 mg capsule 200 mg PO DAILY 10/24/21 clobetasol 0.05 % topical ointment topical PRN Vaginal Irritation 10/24/21 hydrochlorothiazide 25 mg tablet 25 mg PO DAILY 10/24/21 lisinopril 5 mg tablet 5 mg PO DAILY 10/24/21 acetaminophen 325 mg tablet (Tylenol) 650 mg PO Q4H PRN PRN Fever, pain 1-12/25 #0 tabs 10/28/21 aluminum-mag hydroxide-simethicone 400 mg-400 mg-40 mg/5 mL oral susp (Mag-Al Plus Extra Strength) 30 ml PO Q6H PRN PRN Gastric Burning #0 mL 10/28/21 doxycycline monohydrate 100 mg capsule 100 mg PO BID 2 weeks #0 caps 10/28/21 melatonin 3 mg tablet 3 mg PO QHS PRN PRN Insomnia #0 tabs 10/28/21 nut.tx.comp. immune systm,reg 0.08 gram-1.4 kcal/mL oral liquid (Ensure Surgery) 237 ml PO TIDCM #0 mL 10/28/21 nystatin 100,000 unit/gram topical powder (Nyamyc) 1 applic topical TID 2 weeks #0 grams 10/28/21 rivaroxaban 10 mg tablet (Xarelto) 10 mg PO 0600 2 weeks #0 tabs 10/28/21 sennosides 8.6 mg-docusate sodium 50 mg tablet (Stool Softener-Stimulant Laxative) 2 tab PO BID #0 tabs 10/28/21 tramadol 50 mg tablet 50 - 100 mg PO Q6H PRN PRN Pain Score 4-10 5 days #20 tabs 10/28/21 Hospital Course Operations - (Open reduction internal fixation left femoral shaft fracture) Procedures None Summary of Care Provided Minutes Spent on Discharge: 35 Weight / BMI Weight Weight: 86.9 kg Body Mass Index (BMI) 33.0 ABG / Lab / Microbiology Data Result Diagrams: 10/30/21 06:35 10/30/21 06:35 Laboratory: Laboratory Results - last 24 hr 10/30/21 06:35: WBC 6.1, RBC 3.20 L, Hgb 10.3 L, Hct 30.0 L, MCV 93.8, MCH 32.2 H, MCHC 34.3, RDW Std Deviation 46.2 H, RDW Coeff of Garret 13.5, Plt Count 173, MPV 9.9, Immature Gran % (Auto) 0.700, Neut % (Auto) 51.4, Lymph % (Auto) 25.9, [place] % (Auto) 16.4 H, Eos % (Auto) 4.9, Baso % (Auto) 0.7, Absolute Neuts (auto) 3.1, Absolute Lymphs (auto) 1.58, Nucleated RBC % 0.3 10/30/21 06:35: Sodium 138, Potassium 3.7, Chloride 103, Carbon Dioxide 32.0, Anion Gap 3 L, BUN 21 H, Creatinine 0.72, Estim Creat Clear Calc 38.97, Est GFR (MDRD) Af Amer 101, Est GFR (MDRD) Non-Af 84, BUN/Creatinine Ratio 29.2 H, Glucose 107 H, Calcium 9.3, Total Bilirubin 1.10 H, AST 38 H, ALT 25, Alkaline Phosphatase 71, Total Protein 6.1 L, Albumin 2.3 L, Globulin 3.8, Albumin/Globulin Ratio 0.6 L Meaningful Use Info Meaningful Use Diagnoses (Choose all that apply): None applicable Discharge Plan Admission Admit Date/Time: 10/24/21 13:26 Primary Reason for Your Visit: LLE mid femur Fx, Fall Attending Provider: Jhony Emery Primary Care Provider: Kenny Mendenhall Consulting Providers: Victor Hugo Alvarado ; Jennifer Grace ; Brielle Bright Instructions Patient Instructions: Femur ORIF Additional Instructions / Restrictions: #1.? General debility, LLE pain s/p mechanical fall w/ the left lower extremity with a displaced and mildly angulated oblique fracture of the mid femur at the level of the proximal stent of the medullary portion of the knee prosthesis: [place] 10/25/21 Open reduction internal fixation left femoral shaft fracture. Post-operative plan of care includes: (1) Xarelto 10 mg daily for 2 weeks followed by aspirin 81 mg for 2 weeks (2) Doxycycline 100 mg twice daily x 2 weeks as patient is high risk for infection following this type of procedure (3) Toe-touch weightbearing with range of motion as tolerated of the knee to be continued for at least 6 weeks, (4) Continue dressing intact x5 days as long as not saturated, change if saturated, dressing can be discontinued if incision remains clean and dry following (5) Follow-up with orthopedic surgery in 2 weeks for wound check and staple removal as well as radiographs Discharge Orders/Prescriptions Prescriptions: New sennosides-docusate sodium [Stool Softener-Stimulant Laxat] 8.6-50 mg Tablet 2 tab PO BID Qty: 0 0RF Xarelto 10 mg Tablet 10 mg PO 0600 14 Days Qty: 0 0RF Rx Instructions: Following 2 weeks transition to aspirin 81 mg daily x 2 weeks. nystatin [Nyamyc] 100,000 unit/gram Powder 1 applic topical TID 14 Days Qty: 0 0RF Protocol: *Topical Application Instructions APPLICATION INSTRUCTIONS: to affected regions Rx Instructions: Apply to affected region melatonin 3 mg Tablet 3 mg PO QHS PRN PRN (Reason: Insomnia) Qty: 0 0RF doxycycline monohydrate 100 mg Capsule 100 mg PO BID 14 Days Qty: 0 0RF alum-mag hydroxide-simeth [Mag-Al Plus Extra Strength] 400-400-40 mg/5 mL Suspension 30 ml PO Q6H PRN PRN (Reason: Gastric Burning) Qty: 0 0RF Ensure Surgery 0.08-1.4 gram-kcal/mL Liquid 237 ml PO TIDCM Qty: 0 0RF acetaminophen [Tylenol] 325 mg Tablet 650 mg PO Q4H PRN PRN (Reason: Fever, pain 1-10/10) Qty: 0 0RF tramadol 50 mg Tablet 50 - 100 mg PO Q6H PRN PRN (Reason: Pain Score 4-10) 5 Days Qty: 20 0RF Continued lisinopril 5 mg tablet 5 mg PO DAILY Label Comments: TAKE 1 TABLET BY MOUTH ONCE DAILY hydrochlorothiazide 25 mg tablet 25 mg PO DAILY Label Comments: TAKE 1 TABLET BY MOUTH ONCE DAILY celecoxib 200 mg capsule 200 mg PO DAILY Label Comments: TAKE 1 CAPSULE BY MOUTH ONCE DAILY WITH FOOD clobetasol 0.05 % ointment TOPICAL PRN (Reason: Vaginal Irritation) Label Comments: APPLY TO VULVA TWICE DAILY Referrals / Follow Up: Kenny Mendenhall MD [Primary Care Provider] - (Follow-up within 1-2 days SNF discharge.) Victor Hugo Alvarado MD [Med Staff - Active Staff] - (Follow-up in 2 weeks to have follow-up films, evaluation of incision and staple removal.) Disposition Disposition (needs filled in before D/C Order can be placed): [facility] Charges/Coding Visit Charges Inpatient E&M: 10553 Disch Hosp
--- NOTE | 2021-10-30 12:05 | PHA.DC.MR ---
Pharmacy Service has performed discharge medication reconciliation for this patient. The patient's discharge medication list was reviewed for discrepancies and discrepancies were resolved. Home Medications celecoxib 200 mg capsule 200 mg PO DAILY 10/24/21 clobetasol 0.05 % topical ointment topical PRN Vaginal Irritation 10/24/21 hydrochlorothiazide 25 mg tablet 25 mg PO DAILY 10/24/21 lisinopril 5 mg tablet 5 mg PO DAILY 10/24/21 acetaminophen 325 mg tablet (Tylenol) 650 mg PO Q4H PRN PRN Fever, pain 1-12/25 #0 tabs 10/28/21 aluminum-mag hydroxide-simethicone 400 mg-400 mg-40 mg/5 mL oral susp (Mag-Al Plus Extra Strength) 30 ml PO Q6H PRN PRN Gastric Burning #0 mL 10/28/21 doxycycline monohydrate 100 mg capsule 100 mg PO BID 2 weeks #0 caps 10/28/21 melatonin 3 mg tablet 3 mg PO QHS PRN PRN Insomnia #0 tabs 10/28/21 nut.tx.comp. immune systm,reg 0.08 gram-1.4 kcal/mL oral liquid (Ensure Surgery) 237 ml PO TIDCM #0 mL 10/28/21 nystatin 100,000 unit/gram topical powder (Nyamyc) 1 applic topical TID 2 weeks #0 grams 10/28/21 rivaroxaban 10 mg tablet (Xarelto) 10 mg PO 0600 2 weeks #0 tabs 10/28/21 sennosides 8.6 mg-docusate sodium 50 mg tablet (Stool Softener-Stimulant Laxative) 2 tab PO BID #0 tabs 10/28/21 tramadol 50 mg tablet 50 - 100 mg PO Q6H PRN PRN Pain Score 4-10 5 days #20 tabs 10/28/21
[2021-10-30] MEDS: proCHLORPERazine 10 MG/2 ML Vial 5 MG IV (12:58)
--- NOTE | 2021-10-30 14:23 | CASEMGMT ---
Social Work SW in to meet with pt and inform her precert has been obtained for her to go to TCU. Pt expressed gratitude and readiness to discharge to TCU. SW informed pt nurse that Covid test will need completed. MERRITT Muñoz
== END 2021-10-30 13:36 | disposition skilled nursing facility (03) | DRG 481 ==
PROVIDERS: Family Medicine; Specialist; Admitting Provider Internal Medicine; PCP Family Medicine; Referring Provider Internal Medicine
PROC: 0QS904Z Reposition Left Femoral Shaft with Internal Fixation Device, Open Approach (ICD-10-PCS; CPT 27514; principal; 2021-10-25 14:40)
DX: S72.332A Displaced oblique fracture of shaft of left femur, initial encounter for closed fracture (principal); M97.12XA Periprosthetic fracture around internal prosthetic left knee joint, initial encounter; D69.6 Thrombocytopenia, unspecified; I10 Essential (primary) hypertension; W19.XXXA Unspecified fall, initial encounter; D64.9 Anemia, unspecified; E66.9 Obesity, unspecified; R53.81 Other malaise; Z68.33 Body mass index [BMI] 33.0-33.9, adult; Z86.718 Personal history of other venous thrombosis and embolism; Z79.01 Long term (current) use of anticoagulants
CPT/HCPCS: 36415; 73552; 73560; 76000; 80048; 80053; 85025; 86850; 86900; 86901; 87426; 93005; 97110; 97116; 97162; 97166; 97530; 97535; 99251; C1713; J7030; A4216; G0463; J2310; J2405

== ENCOUNTER 2021-10-30 13:50 | Inpatient (IN) | payer MEDICARE, SELFPAY ==
[2021-10-30 14:18] VITALS: BP 153/78; PULSE 87; RESP 16; TEMP 36.4; O2SAT 95; BMI 33.0
[2021-10-30] MEDS: Doxycycline 100 MG CAPSULE PO (18:13)
[2021-10-30] MEDS: Senna/Docusate Sodium 1 Tablet 2 TABLET PO (18:13)
--- NOTE | 2021-10-30 19:10 | HP.PCM_ITS ---
HPI - General General Date of Admission: 10/30/21 Date of Service: 10/30/21 Chief Complaint: Here for rehab. HPI Narrative 10/24/2021 URSULA ARNOLD, is a 76 Female who presents with following: Admit to Hospital with left lower extremity pain status post fall. Bloodwork okay, Chest X-ray okay. X-ray showed left femur fracture. Prepare for surgery. PONV, consider Zofran prn, Compazine prn. 10/25/2021 Pain is controlled. History of postoperative DVT. DVT prophylaxis per Orthopedics. 10/25/2021 Dr. Alvarado performed open reduction internal fixation left femoral shaft fracture. 10/26/2021 Nausea from Tramadol. Groggy this AM, on oxygen 2 liters per nasal cannula. Consider stopping morphine due to sedation. Xarelto 10mg daily x 2 weeks, then aspirin 81mg x 2 weeks for DVT prophylaxis. Doxycycline 100mg twice daily x 2 weeks, high risk of infection. Toe Touch weight bearing left lower extremity x 6 weeks. 10/26/2021 Stop Morphine due to nausea. Monitor postoperative anemia. 10/27/2021 Nausea resolved, left pain controlled with Tramadol. Pre-CERT for TCU. 10/28/2021 Patient afraid to move, emphasized need for movement to help recover. 10/29/2021 Awaiting Pre-CERT for TCU. 10/30/2021 Admit to TCU with debility, here for rehabilitation, strengthening, prior to discharge home with who has Parkinson Disease. [facility] Medical History DVT (deep venous thrombosis) GERD (gastroesophageal reflux disease) Hiatal hernia History of DVT (deep vein thrombosis) HTN (hypertension) Irritable bowel Lupus Obesity PONV (postoperative nausea and vomiting) Post-menopausal Restless legs Stress incontinence Vaginal vault prolapse Home Medications celecoxib 200 mg capsule 200 mg PO DAILY arthritis pain 10/24/21 [History Last Taken 10/23/21] clobetasol 0.05 % topical ointment topical PRN Vaginal Irritation 10/24/21 [History Last Taken Unknown] hydrochlorothiazide 25 mg tablet 25 mg PO DAILY blood pressure 10/24/21 [History Last Taken 10/23/21] lisinopril 5 mg tablet 5 mg PO DAILY blood pressure 10/24/21 [History Last Taken 10/23/21] acetaminophen 325 mg tablet (Tylenol) 650 mg PO Q4H PRN PRN Fever, pain 1-10/10 #0 tabs 10/28/21 [Rx Last Taken Unknown] aluminum-mag hydroxide-simethicone 400 mg-400 mg-40 mg/5 mL oral susp (Mag-Al Plus Extra Strength) 30 ml PO Q6H PRN PRN Gastric Burning #0 mL 10/28/21 [Rx Last Taken Unknown] melatonin 3 mg tablet 3 mg PO QHS PRN PRN Insomnia #0 tabs 10/28/21 [Rx Last Taken Unknown] tramadol 50 mg tablet 50 - 100 mg PO Q6H PRN PRN Pain Score 4-10 5 days #20 tabs 10/28/21 [Rx Last Taken Unknown] doxycycline monohydrate 100 mg capsule 100 mg PO BID infection 10/30/21 [History Last Taken Unknown] nut.tx.comp. immune systm,reg 0.08 gram-1.4 kcal/mL oral liquid (Ensure Surgery) 237 ml PO TIDCM nutritional supplement 10/30/21 [History Last Taken Unknown] nystatin 100,000 unit/gram topical powder (Nyamyc) 1 applic topical TID yeast 10/30/21 [History Last Taken Unknown] rivaroxaban 10 mg tablet (Xarelto) 10 mg PO 0600 blood thinner 10/30/21 [History Last Taken Unknown] sennosides 8.6 mg-docusate sodium 50 mg tablet (Stool Softener-Stimulant Laxative) 2 tab PO BID stool softener 10/30/21 [History Last Taken Unknown] Allergy/AdvReac Type Severity Reaction Status Date / Time hydrocodone [From [place]] AdvReac Intermediate Vomiting Verified 10/25/21 14:14 morphine AdvReac Intermediate Nausea/emes Verified 10/25/21 14:14 is nabumetone AdvReac Intermediate Other Verified 10/25/21 14:14 tramadol AdvReac Intermediate Vomiting Verified 10/25/21 14:14 Family History Mother Bladder cancer CHF (congestive heart failure) Alzheimer disease Grandmother Diabetes Maternal grandmother Surgical History History of hysterectomy History of total right knee replacement Hx of vaginal surgery S/P hysterectomy Social History household members: spouse Smoking Status: Never smoker alcohol intake: never substance use type: does not use ROS Constitutional Constitutional: Denies chills, fever(s) or weight gain ENT HEENT: Denies headache(s), nasal congestion or nasal discharge Cardiovascular Cardiovascular: Denies chest pain or palpitations Respiratory/Chest Respiratory/Chest: Denies cough, excessive phlegm production or shortness of breath with exertion Gastrointestinal Gastrointestinal: Denies abdominal pain, nausea or vomiting Genitourinary Genitourinary: Denies dysuria Musculoskeletal Musculoskeletal: Denies joint pain or joint swelling Integumentary Integumentary: Denies rash or wounds Neurologic Neurologic: Denies focal weakness, numbness or tingling Psychiatric Psychiatric: Denies anxiety, auditory hallucinations, depression, homicidal ideation or suicidal ideation Vital Signs Vital Signs Vital Signs: 10/30/21 14:18 Temperature 97.5 F L Temperature Source Temporal Pulse Rate 87 Respiratory Rate 16 Blood Pressure 153/78 H Blood Pressure Mean 103 Blood Pressure Source Monitor Blood Pressure Position Semi-Fowlers Blood Pressure Location Right Arm Pulse Ox 95 Oxygen Delivery Method Room Air Weight Weight: 84.64 kg Body Mass Index (BMI) 33.0 Physical Exam Const alert General Appearance: cooperative HEENT normocephalic Eyes PERRL and EOMs intact bilaterally Neck supple, no JVD and no carotid bruits Resp normal respiratory effort, normal air movement and clear to auscultation bilaterally Cardio regular rate and regular rhythm GI normal to inspection, nondistended, normoactive bowel sounds, non-tender and non-distended Extremity normal capillary refill General Extremity: Negative for edema Skin no rashes or lesions noted General Skin Exam: no breakdown Psych affect normal Appearance: appropriate Results Lab / Micro Data Micro: Microbiology 10/30/21 16:45 Nasal Secretion SARS-CoV-2 Antigen (Rapid) - Final Assessment & Plan Assessment/Plan (1) Debility: (2) Closed left femoral fracture: QUALIFIERS: Encounter type: initial encounter Femur location: unspecified portion of femur (3) Obesity: (4) Hypertension: (5) History of DVT (deep vein thrombosis): (6) Osteoarthritis: (7) PONV (postoperative nausea and vomiting): PLAN: Plan 76 year old female with below past medical history hospitalized with closed left femoral shaft fracture underwent ORIF 10/25/[address] Alvarado, admitted to TCU with debility, here for rehabilitation, strengthening, prior to discharge home with . * Debility - PT/OT. * Pain - Tylenol 650mg q4h prn pain (1-10), Tramadol 50mg - 100mg q6h prn pain (4-10) * Bowel - Senna/colace 2 tablets bid, Dulcolax 10mg daily prn. * Adult immunization - Administer pneumonia vaccine, covid19 vaccine, flu vaccine as appropriate. * DVT prophylaxis - Xarelto 10mg daily thru 11/08/2021, then Aspirin 81mg twice daily thru 11/23/2021. * Osteoarthritis - Celebrex 200mg daily. * Lichen Planus - Clobetasol topical bid prn. * ID - Doxycycline 100mg bid thru 11/08/2021. * Nutrition - Ensure Surgery 237ml po tidcm. * Hypertension - Lisinopril 5mg daily, HCTZ 25mg daily. * Indigestion - Mylanta II 30ml q6h prn. * Insomnia - Melatonin 3mg qhs prn. * Tinea Corporis - Nystatin powder tid.
[2021-10-30 22:30] VITALS: PULSE 109; RESP 18; O2SAT 92
[2021-10-30] MEDS: Bisacodyl 5 MG Tablet 10 MG PO (22:42)
[2021-10-30] MEDS: Nystatin Powder 15gm Bottle 1 APPLIC TOPICAL (22:42)
[2021-10-30] MEDS: 0.9% Saline Lock 10 ML Syringe IV (22:44)
[2021-10-30] MEDS: Acetaminophen 325 MG Tablet 650 MG PO (22:45)
[2021-10-30] MEDS: MELATONIN 3 MG TABLET PO (22:46)
[2021-10-31] MEDS: Acetaminophen 325 MG Tablet 650 MG PO (04:18)
[2021-10-31 05:27] LABS: Absolute Neutrophil Count 3.8 X10^3/uL (2.0-7.7); Basophil# 0.04 X10^3/uL; Basophil% 0.6 % (0-1); Eosinophil# 0.25 X10^3/uL; Eosinophils% 3.9 % (0-5); Hemoglobin 10.7 g/dL (12.0-15.0); Lymphocyte % 20.1 % (19-41); Mean Corp Hgb Conc 33.4 g/dL (32-36); Mean Corpuscular Hgb 31.9 pg (27.0-32.0); Mean Corpuscular Volume 95.5 fL (81-99); Mean Platelet Vol. 9.5 fl (6.2-12.0); Monocyte# 1.05 X10^3/uL; Monocyte% 16.3 % (0-10); NRBC Flagged by Analyzer 0 % (0-5); Neutrophil # 3.77 X10^3/uL (2.7-7.7); Neutrophil % 58.3 % (47-70); Platelet Count 200 K/mm3 (150-450); RBC Distribution Width CV 13.6 % (11.6-14.6); Red Blood Count 3.35 M/mm3 (4.2-5.4); White Blood Count 6.5 K/mm3 (4.4-11.0)
[2021-10-31 05:46] LABS: Anion Gap 5 (5-15); BUN 18 mg/dL (7-18); BUN/Creat Ratio 24.3 RATIO (10-20); Calcium,Total 9.4 mg/dL (8.5-10.1); Chloride 103 mmol/L (98-107); Creatinine, Serum 0.74 mg/dL (0.55-1.02); EST Glomerular Filtration Rate 81 mL/min (>60); Est Glom Filt Rate - Afr Amer 98 mL/min (>60); Estimated Creatinine Clearance 38.97 ml/min; Glucose 114 mg/dL (74-106); Potassium 3.5 mmol/L (3.5-5.1); Sodium Level 138 mmol/L (136-145)
[2021-10-31 06:38] VITALS: BP 121/77; PULSE 103
[2021-10-31] MEDS: Celecoxib 200 MG Capsule PO (06:40)
[2021-10-31] MEDS: Nystatin Powder 15gm Bottle 1 APPLIC TOPICAL ×3 (06:41→20:54)
[2021-10-31] MEDS: hydroCHLOROthiazide 25 MG Tablet PO (06:41)
[2021-10-31] MEDS: Doxycycline 100 MG CAPSULE PO ×2 (06:41→17:23)
[2021-10-31] MEDS: Lisinopril 5 MG Tablet PO (06:41)
[2021-10-31] MEDS: Senna/Docusate Sodium 1 Tablet 2 TABLET PO (06:41)
[2021-10-31] MEDS: Rivaroxaban 10 MG Tablet PO (06:42)
--- NOTE | 2021-10-31 07:36 | RAD_ITS ---
STUDY: X-RAY - ABDOMEN/PELVIS REASON FOR EXAM: Female, 76 years old. Nausea. TECHNIQUE: AP abdomen radiograph COMPARISON: None. FINDINGS: Normal visualized lung bases. Multiple loops of gas-filled bowel. There is no demonstrated free abdominal air. The visualized liver, spleen and kidneys are grossly normal in size and morphology. There are calcified phleboliths in the pelvis. There are diffuse degenerative changes of the visualized lumbar spine. RAD/Abdomen Single View IMPRESSION: Gas-filled bowel loops may represent enteritis, ileus, or less likely obstruction Electronically Signed: Favio Hester MD at 8:19 EDT ,
[2021-10-31] MEDS: Polyethylene Glycol 3350 17 GM PACKET PO (11:01)
[2021-10-31] MEDS: Tuberculin,Purif.prot.deriv. 50 TU/ML Vial 0.1 ML ID (11:02)
[2021-10-31] MEDS: 0.9% Saline Lock 10 ML Syringe IV (11:15)
[2021-10-31] MEDS: Bisacodyl 5 MG Tablet 10 MG PO (12:10)
--- NOTE | 2021-10-31 13:11 | NURSING ---
Late entry. LVM for [place],next of kin, that a staff member tested positive for COVID.
[2021-10-31 14:59] VITALS: BP 130/69; PULSE 114; RESP 14; TEMP 36.8; O2SAT 98
--- NOTE | 2021-10-31 16:07 | CASEMGMT ---
SW requested pt have family bring in copies of advanced directives as they are not on file currently. Pt agreed.
--- NOTE | 2021-10-31 16:15 | CASEMGMT ---
Social Work Met with patient to complete initial assessment. Introduced self and role. Verified/updated contacts. Discussed code status and MOLST form. Pt confirms DNR-CC. MOLST communicated to , placed in chart. Explained [employer] insurance with [employer] 11/01 and continued stay is not guaranteed. Pt is currently TTWB for 6 weeks. The goal is for pt to return home with at [facility]. has Parkinson's disease and pt was primary caregiver for him. SW to continue to follow for DC planning. Sridevi Longoria, IT LEAD BOAT DOCK OPERATOR
[2021-10-31] MEDS: proCHLORPERazine 5 MG Tablet 10 MG PO (18:53)
[2021-10-31] MEDS: MELATONIN 3 MG TABLET PO (20:57)
[2021-10-31 21:00] VITALS: PULSE 74; RESP 16; O2SAT 93
[2021-11-01] MEDS: Lisinopril 5 MG Tablet PO (05:14)
[2021-11-01] MEDS: Celecoxib 200 MG Capsule PO (05:14)
[2021-11-01] MEDS: Rivaroxaban 10 MG Tablet PO (05:14)
[2021-11-01] MEDS: Doxycycline 100 MG CAPSULE PO ×2 (05:14→17:17)
[2021-11-01] MEDS: hydroCHLOROthiazide 25 MG Tablet PO (05:14)
[2021-11-01] MEDS: Nystatin Powder 15gm Bottle 1 APPLIC TOPICAL ×3 (05:15→20:22)
[2021-11-01 13:32] VITALS: BP 106/58; PULSE 66; RESP 18; TEMP 36.7; O2SAT 97
--- NOTE | 2021-11-01 15:30 | PHA.CONS_ITS ---
TCU RX Drug Regimen Review Subjective: TCU Admission. Hospitalized with closed left femoral shaft fracture underwent ORIF 10/25/[address] Alvarado. Admitted to TCU with debility for strengthening and rehabilitation. Objective: Allergies hydrocodone [From [place]] Adverse Reaction (Intermediate, Verified 10/25/21 14:14) Vomiting ALSO NAUSEA morphine Adverse Reaction (Intermediate, Verified 10/25/21 14:14) Nausea/emesis nabumetone Adverse Reaction (Intermediate, Verified 10/25/21 14:14) Other DIZZINESS tramadol Adverse Reaction (Intermediate, Verified 10/25/21 14:14) Vomiting AND NAUSEA Current Medications Generic Name Dose Route Start Last Admin Trade Name Freq PRN Reason Stop Dose Admin Acetaminophen 650 mg 10/30/21 16:08 10/31/21 04:18 Acetaminophen 325 Mg Tablet PO 650 mg Q4H PRN PRN Administration Fever, pain 1-1010 Al Hydroxide/Mg Hydroxide 30 ml 10/30/21 16:08 Mag Hydrox/Al Hydrox/Simeth 30 Ml Udc PO Q6H PRN PRN Gastric Burning Aspirin 81 mg 11/09/21 08:00 Aspirin 81 Mg Tab.Chew PO 11/23/21 08:01 BIDCM PEDRO Bisacodyl 10 mg 10/30/21 19:28 10/31/21 12:10 Bisacodyl 5 Mg Tablet PO 10 mg DAILY PRN Administration CONSTIPATION Celecoxib 200 mg 10/31/21 06:00 11/01/21 05:14 Celecoxib 200 Mg Capsule PO 200 mg DAILY PEDRO Administration Clobetasol Propionate 1 applic 10/30/21 16:08 Clobetasol Propionate 0.05% Ointment TOPICAL BID PRN Vaginal Irritation Protocol Doxycycline Monohydrate 100 mg 10/30/21 18:00 11/01/21 05:14 Doxycycline 100 Mg Capsule PO 11/08/21 23:55 100 mg BID PEDRO Administration Hydrochlorothiazide 25 mg 10/31/21 06:00 11/01/21 05:14 Hydrochlorothiazide 25 Mg Tablet PO 25 mg DAILY PEDRO Administration Lactobacillus Acidophilus 1 tablet 10/31/21 18:00 11/01/21 05:14 Lactobacillus Acidophilus PO 1 tablet BID PEDRO Administration Lisinopril 5 mg 10/31/21 06:00 11/01/21 05:14 Lisinopril 5 Mg Tablet PO 5 mg DAILY PEDRO Administration Melatonin 3 mg 10/30/21 16:08 10/31/21 20:57 Melatonin 3 Mg Tablet PO 3 mg QHS PRN PRN Administration Insomnia Nutritional Formula (Lactose Free) 120 ml 11/01/21 17:45 Ensure Clear 120 Ml Liquid PO TIDCM PEDRO Nystatin 1 applic 10/30/21 22:00 11/01/21 13:30 Nystatin Powder 15gm Bottle TOPICAL 1 applic TID PEDRO Administration Protocol Polyethylene Glycol 17 gm 10/31/21 09:40 11/01/21 05:15 Polyethylene Glycol 3350 17 Gm Packet PO Not Given DAILY [facility] Prochlorperazine Maleate 10 mg 10/31/21 07:36 10/31/21 18:53 Prochlorperazine 5 Mg Tablet PO 10 mg Q4H PRN PRN Administration NAUSEA/VOMITING Rivaroxaban 10 mg 10/31/21 06:00 11/01/21 05:14 Rivaroxaban 10 Mg Tablet PO 11/08/21 23:55 10 mg 0600 PEDRO Administration Senna/Docusate Sodium 2 tablet 10/30/21 18:00 11/01/21 05:15 Senna/Docusate Sodium 1 Tablet PO Not Given BID [facility] Sodium Chloride 10 - 40 ml 10/30/21 14:55 10/31/21 11:15 0.9% Saline Lock 10 Ml Syringe IV 10 ml UD PRN Administration SALINE FLUSH Tramadol HCl 50 - 100 mg 10/30/21 16:08 Tramadol 50 Mg Tablet PO Q6H PRN PRN Pain Score 4-10 Tuberculin PPD 0.1 ml 11/07/21 10:00 Tuberculin,Purif.Prot.Deriv. 50 Tu/Ml Vial ID 11/07/21 10:01 X1 ONE Problem List (Last Reviewed 10/30/21 @ 19:[address] Jermain Tran MD) PONV (postoperative nausea and vomiting) (Acute) Osteoarthritis (Acute) Hypertension (Chronic) Debility (Acute) Obesity (Acute) History of DVT (deep vein thrombosis) (Acute) Closed left femoral fracture (Acute) Vital Signs Temp Pulse Resp BP Pulse Ox O2 Del Method 98.1 F 66 18 106/58 L 97 Room Air 11/01/21 13:32 11/01/21 13:32 11/01/21 13:32 11/01/21 13:32 11/01/21 13:32 11/01/21 13:32 Oxygen Delivery Method Room Air Weight: 84.64 kg Body Mass Index (BMI) 33.0 Sodium 138 mmol/L (136-145) 10/31/21 05:13 Potassium 3.5 mmol/L (3.5-5.1) 10/31/21 05:13 Chloride 103 mmol/L (98-107) 10/31/21 05:13 Carbon Dioxide 30.0 mmol/L (21.0-32.0) 10/31/21 05:13 Anion Gap 5 (5-15) 10/31/21 05:13 BUN 18 mg/dL (7-18) 10/31/21 05:13 Creatinine 0.74 mg/dL (0.55-1.02) 10/31/21 05:13 Est GFR (MDRD) Af Amer 98 mL/min (>60) 10/31/21 05:13 Est GFR (MDRD) Non-Af 81 mL/min (>60) 10/31/21 05:13 BUN/Creatinine Ratio 24.3 RATIO (10-20) H 10/31/21 05:13 Glucose 114 mg/dL (74-106) H 10/31/21 05:13 Assessment/Plan: 1. Pain: acetaminophen 650mg Q4H PRN fever/pain (1-10) and tramadol 50-100mg PO Q6H PRN pain (4-10). Please continue to monitor for S/S of increased pain, PRN usage, and renal function. Last acetaminophen dose 10/31/21 pain level 10/10. Tramadol never used.? 2. Bowel: Miralax 17gm PO daily, senna/docusate 2T PO BID and bisacodyl 10mg PO daily PRN constipation. Please continue to monitor for constipation and PRN usage. Last documented bowel movement 10/31/21. Dulcolax last use 10/31/21. Patient is now having diarrhea and refusing recent doses. Please consider changing Miralax and senna/docusate to PRN. Thanks. 3. DVT prophylaxis: rivaroxaban 10mg PO dinner thru 11/08/2021, then aspirin 81mg PO BIDCM thru 11/23/2021. Please consider monitoring for S/S of bleeding, bruising, DVT and hemoglobin (last 10.7g/dL).? 4. Post-op infection prevention: doxycycline 100mg PO BID thru 11/08/2021. Please continue to monitor for S/S of infection and diarrhea. 5. Hypertension: lisinopril 5mg PO daily and hydrochlorothiazide 25mg PO daily. Please continue to monitor blood pressure (last 130/69), potassium (last 3.5mmol/L), sodium (last 138mmol/L), cough, and creatinine (last 0.74mg/dL). 6. Indigestion: Mylanta II 30ml PO Q6H PRN gastric burning. Please continue to monitor for S/S of indigestion and PRN usage (has never used). 7. Nausea/Vomiting: prochlorperazine 10 mg PO Q4H PRN nausea/vomiting. Please continue to monitor for N/V and PRN usage. Last use 10/31/21. 8. Insomnia: melatonin 3mg PO QHS PRN insomnia. Please continue monitoring patient sleeping habits and PRN usage. Has had 2 doses. 9. Osteoarthritis: celecoxib 200 mg PO daily. Please continue to monitor blood pressure (last 130/69), creatinine (last 0.74 mg/dl). This medication is on the BEERs list for CKD and heart failure. Resident does not have either of those indications. Resident has a CrCl of 65.6 mL/min. 10. GI prophylaxis: lactobacillus 1T PO BID. Please continue to monitor for improvement of diarrhea. Assessment/Plan for indications treated with psychotropic medications: None Medical chart and medication regimen reviewed. The following medication irregularities or issues were identified: *1. Miralax 17gm PO daily, senna/docusate 2T PO BID and bisacodyl 10mg PO daily PRN constipation. Patient is now having diarrhea and refusing recent doses. Please consider changing Miralax and senna/docusate to PRN. Thanks. Date of Note:: 11/01/21
[2021-11-01] MEDS: Ensure Clear 120 ML Liquid PO (17:16)
[2021-11-01] MEDS: Senna/Docusate Sodium 1 Tablet 2 TABLET PO (17:18)
[2021-11-01] MEDS: MELATONIN 3 MG TABLET PO (20:22)
[2021-11-01] MEDS: Acetaminophen 325 MG Tablet 650 MG PO (22:26)
[2021-11-02] MEDS: Lisinopril 5 MG Tablet PO (05:02)
[2021-11-02] MEDS: Rivaroxaban 10 MG Tablet PO (05:02)
[2021-11-02] MEDS: Celecoxib 200 MG Capsule PO (05:02)
[2021-11-02] MEDS: hydroCHLOROthiazide 25 MG Tablet PO (05:02)
[2021-11-02] MEDS: Senna/Docusate Sodium 1 Tablet 2 TABLET PO (05:02)
[2021-11-02] MEDS: Nystatin Powder 15gm Bottle 1 APPLIC TOPICAL ×3 (05:02→21:06)
[2021-11-02] MEDS: Doxycycline 100 MG CAPSULE PO ×2 (05:02→18:15)
[2021-11-02] MEDS: traMADol 50 MG Tablet PO ×2 (08:14→14:17)
[2021-11-02] MEDS: proCHLORPERazine 5 MG Tablet 10 MG PO ×3 (08:15→18:15)
[2021-11-02] MEDS: Bisacodyl 5 MG Tablet 10 MG PO (08:19)
[2021-11-02] MEDS: Ensure Clear 120 ML Liquid PO ×2 (11:48→18:15)
--- NOTE | 2021-11-02 12:52 | NURSING ---
Talked to by phone and informed him of a covid positive patient in TCU.
[2021-11-02 13:51] VITALS: BP 107/65; PULSE 98; RESP 16; TEMP 36.2; O2SAT 95
--- NOTE | 2021-11-02 15:02 | PT ---
Per surgeon, pt will have weight bearing precautions for a while. Recommended pt look into getting a ramp at home as she has 3 steps to enter her home. pt in agreement and stated she will talk with her about getting a ramp.
[2021-11-02 21:01] VITALS: BP 126/67; PULSE 93; RESP 16; O2SAT 92
[2021-11-02 21:10] VITALS: PULSE 92; RESP 16; O2SAT 92
[2021-11-03 06:43] VITALS: BP 128/68; PULSE 103
[2021-11-03] MEDS: Polyethylene Glycol 3350 17 GM PACKET PO (06:44)
[2021-11-03] MEDS: Lisinopril 5 MG Tablet PO (06:44)
[2021-11-03] MEDS: Doxycycline 100 MG CAPSULE PO ×2 (06:44→17:50)
[2021-11-03] MEDS: Rivaroxaban 10 MG Tablet PO (06:44)
[2021-11-03] MEDS: hydroCHLOROthiazide 25 MG Tablet PO (06:44)
[2021-11-03] MEDS: Celecoxib 200 MG Capsule PO (06:44)
[2021-11-03] MEDS: Nystatin Powder 15gm Bottle 1 APPLIC TOPICAL ×3 (06:45→20:33)
[2021-11-03] MEDS: Senna/Docusate Sodium 1 Tablet 2 TABLET PO ×2 (06:45→17:51)
[2021-11-03 10:00] VITALS: PULSE 102; RESP 16; O2SAT 92
[2021-11-03 15:23] VITALS: BP 124/63; PULSE 102; RESP 16; TEMP 37.2; O2SAT 92
[2021-11-03] MEDS: proCHLORPERazine 5 MG Tablet 10 MG PO (20:40)
--- NOTE | 2021-11-03 21:10 | NURSING ---
This nurse updated patient and family about positive staff member. Appreciative of update.
[2021-11-04 05:51] VITALS: BP 128/70; PULSE 104
[2021-11-04] MEDS: Celecoxib 200 MG Capsule PO (05:52)
[2021-11-04] MEDS: hydroCHLOROthiazide 25 MG Tablet PO (05:52)
[2021-11-04] MEDS: Lisinopril 5 MG Tablet PO (05:52)
[2021-11-04] MEDS: Senna/Docusate Sodium 1 Tablet 2 TABLET PO ×2 (05:52→17:31)
[2021-11-04] MEDS: Rivaroxaban 10 MG Tablet PO (05:52)
[2021-11-04] MEDS: Doxycycline 100 MG CAPSULE PO ×2 (05:52→17:31)
[2021-11-04] MEDS: Nystatin Powder 15gm Bottle 1 APPLIC TOPICAL ×2 (05:53→13:27)
--- NOTE | 2021-11-04 14:25 | NURSING ---
VM left with spouse informing family member of positive COVID resident on TCU
[2021-11-04 15:49] VITALS: BP 146/116; PULSE 100; RESP 14; TEMP 36.8; O2SAT 96
[2021-11-05] MEDS: Polyethylene Glycol 3350 17 GM PACKET PO (06:24)
[2021-11-05] MEDS: Senna/Docusate Sodium 1 Tablet 2 TABLET PO (06:26)
[2021-11-05] MEDS: Rivaroxaban 10 MG Tablet PO (06:26)
[2021-11-05] MEDS: Doxycycline 100 MG CAPSULE PO ×2 (06:26→17:34)
[2021-11-05] MEDS: Lisinopril 5 MG Tablet PO (06:26)
[2021-11-05] MEDS: Celecoxib 200 MG Capsule PO (06:27)
[2021-11-05] MEDS: hydroCHLOROthiazide 25 MG Tablet PO (06:27)
[2021-11-05 06:32] VITALS: BP 140/74; PULSE 106
[2021-11-05 15:56] VITALS: BP 102/68; PULSE 95; RESP 16; TEMP 36.9; O2SAT 94
[2021-11-06] MEDS: Doxycycline 100 MG CAPSULE PO ×2 (06:30→18:20)
[2021-11-06] MEDS: hydroCHLOROthiazide 25 MG Tablet PO (06:30)
[2021-11-06] MEDS: Celecoxib 200 MG Capsule PO (06:30)
[2021-11-06] MEDS: Rivaroxaban 10 MG Tablet PO (06:31)
[2021-11-06] MEDS: Lisinopril 5 MG Tablet PO (06:32)
[2021-11-06 06:33] VITALS: BP 132/72; PULSE 99
[2021-11-06 14:41] VITALS: BP 122/70; PULSE 101; RESP 17; TEMP 36.8; O2SAT 98
--- NOTE | 2021-11-06 15:30 | NURSING ---
Call placed to Dr. Kenny Clark office. VM left for clinical treasury assistant if TCU nurse can take out abdon and xray can be done at [facility] and sent over to their office. Dr. Hanson office will call back and let TCU know if this will be possible otherwise pt has appt at their office for Nov 21/2022. She will need to go to appointment. Awaiting call back.
--- NOTE | 2021-11-06 15:36 | NURSING ---
Pt and daughter will be taking her to Dr. Alvarado's appointment on 11-08-2021 at 1615.
--- NOTE | 2021-11-06 16:51 | CASEMGMT ---
Social Work BIMS () and PHQ-9 (10/11) completed for MDS assessment. Score indicates mild depression. SW explored responses. Pt became tearful when asked if she felt down, depressed, or hopeless. Pt expressed someone this morning mentioned something that triggered these feelings. Pt explained it has been hard not being about to do things for herself; leaning on and family more; not being there for her . SW validated feelings and provided verbal support. Pt reports to having difficulty concentrating/focusing since surgery. ST order entered to f/u. Pt reports food is tasting better thus appetite is improving. SW discussed pt's TTWB for 6 weeks then PWBS for a year and how that looks for a DC plan. Encouraged to discuss with and family prior to POC meeting. Pt has f/u appt with on 11/08 to get further details on those restrictions. Pt stated her visits nightly and she will discuss it with him. SW offered ongoing supportive visits as needed. Pt appreciative. Sridevi Longoria, CONSUMER MARKETING MANAGER SUPERVISOR COMPRESSED YEAST
[2021-11-06] MEDS: Senna/Docusate Sodium 1 Tablet 2 TABLET PO (18:20)
[2021-11-06] MEDS: Nystatin Powder 15gm Bottle 1 APPLIC TOPICAL (20:39)
[2021-11-06 20:46] VITALS: PULSE 104; RESP 16; O2SAT 99
[2021-11-07 05:30] LABS: Absolute Lymphocyte Count 1.51 X10^3/uL (0.83-4.51); Absolute Neutrophil Count 4.8 X10^3/uL (2.0-7.7); Basophil# 0.06 X10^3/uL; Basophil% 0.8 % (0-1); Eosinophil# 0.12 X10^3/uL; Eosinophils% 1.6 % (0-5); Hematocrit 31.9 % (37-47); Hemoglobin 10.8 g/dL (12.0-15.0); Lymphocyte # 1.51 X10^3/ul (0.83-4.51); Lymphocyte % 20.6 % (19-41); Mean Corp Hgb Conc 33.9 g/dL (32-36); Mean Corpuscular Hgb 31.8 pg (27.0-32.0); Mean Corpuscular Volume 93.8 fL (81-99); Mean Platelet Vol. 9.2 fl (6.2-12.0); Monocyte# 0.87 X10^3/uL; Monocyte% 11.9 % (0-10); NRBC Flagged by Analyzer 0 % (0-5); Neutrophil # 4.75 X10^3/uL (2.7-7.7); Neutrophil % 64.7 % (47-70); Platelet Count 448 K/mm3 (150-450); RBC Distribution Width CV 13.2 % (11.6-14.6); RBC Distribution Width SD 45.1 fl (35.1-43.9); White Blood Count 7.3 K/mm3 (4.4-11.0)
[2021-11-07] MEDS: Doxycycline 100 MG CAPSULE PO ×2 (05:31→17:27)
[2021-11-07] MEDS: Polyethylene Glycol 3350 17 GM PACKET PO (05:31)
[2021-11-07] MEDS: Celecoxib 200 MG Capsule PO (05:31)
[2021-11-07] MEDS: Senna/Docusate Sodium 1 Tablet 2 TABLET PO (05:31)
[2021-11-07] MEDS: Lisinopril 5 MG Tablet PO (05:32)
[2021-11-07] MEDS: hydroCHLOROthiazide 25 MG Tablet PO (05:32)
[2021-11-07] MEDS: Nystatin Powder 15gm Bottle 1 APPLIC TOPICAL ×3 (05:33→20:23)
[2021-11-07] MEDS: Rivaroxaban 10 MG Tablet PO (05:35)
[2021-11-07 05:37] VITALS: BP 105/64; PULSE 104
[2021-11-07 06:18] LABS: Anion Gap 6 (5-15); BUN 21 mg/dL (7-18); BUN/Creat Ratio 27.2 RATIO (10-20); Calcium,Total 9.6 mg/dL (8.5-10.1); Chloride 102 mmol/L (98-107); Creatinine, Serum 0.77 mg/dL (0.55-1.02); EST Glomerular Filtration Rate 77 mL/min (>60); Est Glom Filt Rate - Afr Amer 93 mL/min (>60); Estimated Creatinine Clearance 38.97 ml/min; Glucose 113 mg/dL (74-106); Potassium 3.4 mmol/L (3.5-5.1); Sodium Level 135 mmol/L (136-145)
[2021-11-07] MEDS: Potassium Chloride Oral Tablet 20 MEQ PO (09:00)
[2021-11-07 10:00] VITALS: PULSE 101; RESP 16; O2SAT 94
[2021-11-07] MEDS: Tuberculin,Purif.prot.deriv. 50 TU/ML Vial 0.1 ML ID (11:08)
[2021-11-07 15:36] VITALS: BP 111/67; PULSE 101; RESP 16; TEMP 36.9; O2SAT 94
--- NOTE | 2021-11-07 20:12 | NURSING ---
Patient and family made aware of positive staff member.
[2021-11-08] MEDS: hydroCHLOROthiazide 25 MG Tablet PO (05:34)
[2021-11-08] MEDS: Senna/Docusate Sodium 1 Tablet 2 TABLET PO (05:34)
[2021-11-08] MEDS: Rivaroxaban 10 MG Tablet PO (05:34)
[2021-11-08] MEDS: Lisinopril 5 MG Tablet PO (05:34)
[2021-11-08] MEDS: Doxycycline 100 MG CAPSULE PO ×2 (05:34→17:49)
[2021-11-08] MEDS: Celecoxib 200 MG Capsule PO (05:34)
[2021-11-08] MEDS: Nystatin Powder 15gm Bottle 1 APPLIC TOPICAL ×3 (05:35→21:18)
[2021-11-08] MEDS: proCHLORPERazine 5 MG Tablet 10 MG PO (05:43)
[2021-11-08 05:50] LABS: Anion Gap 6 (5-15); BUN 17 mg/dL (7-18); BUN/Creat Ratio 21.9 RATIO (10-20); Calcium,Total 9.8 mg/dL (8.5-10.1); Chloride 102 mmol/L (98-107); Creatinine, Serum 0.78 mg/dL (0.55-1.02); EST Glomerular Filtration Rate 77 mL/min (>60); Est Glom Filt Rate - Afr Amer 93 mL/min (>60); Estimated Creatinine Clearance 38.97 ml/min; Glucose 112 mg/dL (74-106); Potassium 3.7 mmol/L (3.5-5.1); Sodium Level 136 mmol/L (136-145)
--- NOTE | 2021-11-08 09:48 | CASEMGMT ---
Social Work IDT met with patient, , dtr and son via conference call for care plan meeting. Discussed patient's progress in PT/OT/SN. [facility] and continued [facility] is not [facility]. Pt is TTWB for 6 weeks and needs cues to maintain. Pt has f/u appt with this date to get further clarification. Pt has 2 ASHLEY and IDT recommending a ramp. The goal is for pt to return home with , however, pt's has Parkinson's. Son states there [facility]. SW to continue to follow. Sridevi Longoria, MARBLE HELPER PODIATRIC ASSISTANT
[2021-11-08 14:34] VITALS: BP 115/61; PULSE 109; RESP 16; TEMP 37; O2SAT 98
--- NOTE | 2021-11-08 18:14 | NURSING ---
pt returned from follow-up appointment with Dr Alvarado. abdon removed in office to incision area. left MORGAN. per patient, to start baby asa daily after xarelto RX completed. reviewed discharge instructions and verified. no new orders received from Dr Alvarado's office at this time. per patient, to follow-up with Dr Alvarado in 4 weeks.
--- NOTE | 2021-11-08 19:49 | NURSING ---
Message left for , to return call for update for patient on unit test positive for COVID.
[2021-11-08 20:00] VITALS: PULSE 108; RESP 16; O2SAT 98
[2021-11-09] MEDS: Senna/Docusate Sodium 1 Tablet 2 TABLET PO ×2 (06:16→17:15)
[2021-11-09] MEDS: Celecoxib 200 MG Capsule PO (06:16)
[2021-11-09] MEDS: Lisinopril 5 MG Tablet PO (06:17)
[2021-11-09] MEDS: hydroCHLOROthiazide 25 MG Tablet PO (06:17)
[2021-11-09] MEDS: Aspirin 81 MG TAB.CHEW PO (06:17)
[2021-11-09] MEDS: Nystatin Powder 15gm Bottle 1 APPLIC TOPICAL ×3 (06:21→21:19)
[2021-11-09 10:00] VITALS: RESP 6
[2021-11-09 14:56] VITALS: BP 110/69; PULSE 98; RESP 14; TEMP 36.6; O2SAT 98
--- NOTE | 2021-11-09 15:01 | CASEMGMT ---
Social Work Insurance issued LCD 11/11, DC 11/12. SW presented to room where , son and DIL were visiting. Pt granted SW permission to provide updated discharge information with family present. Explained DC 11/12. Pt/family expressing concern with timing, explaining the w/c lift installment would not start until 11/11. Explained appeal rights. Pt/family electing to appeal. Offered for /family to schedule therapy training tomorrow. and dtr will be present at 11 am. Therapy notified. Family requesting another week of TCU stay to ensure comfortability with pt and at home together and w/c lift installed as pt cannot complete steps. Pt will DC home with and skilled HHC. Pt agreed to have son receive electronic list of HHC providers to review. Pt/family unsure of getting transport w/c at DC. SW offered provide script to pt and if pt decides, to order it through insurance at [employer]. All parties agreeable and appreciative. SW notified medical records via email of expected appeal. SW emailed list of skilled HHC providers including quality and resource use data and consistent with the patient?s preferred geographic region, medical needs, and insurance network were provided via Home[employer] Guide Link. Will await selections to make referrals. Plan: DC home with 11/12, pending appeal outcome, HHC PT/OT/SN. Transport w/c script. BRAD Carter
--- NOTE | 2021-11-09 18:17 | DS.PCM_ITS ---
Providers Date of Admission: 10/30/21 Primary Care Physician: Dr. Kenny Mendenhall MD Reason For Visit: LEFT FEMUR FRACTURE Diagnosis Discharge Diagnosis (1) Debility: Status: Acute Code(s): R53.81 - Other malaise (2) Closed left femoral fracture: Status: Inactive Code(s): S72.92XA - Unspecified fracture of left femur, initial encounter for closed fracture Qualifiers: Encounter type: initial encounter Femur location: unspecified portion of femur (3) Obesity: Status: Inactive Code(s): E66.9 - Obesity, unspecified (4) Hypertension: Status: Chronic Code(s): I10 - Essential (primary) hypertension (5) History of DVT (deep vein thrombosis): Status: Inactive Code(s): Z86.718 - Personal history of other venous thrombosis and embolism (6) Osteoarthritis: Status: Acute Code(s): M19.90 - Unspecified osteoarthritis, unspecified site (7) PONV (postoperative nausea and vomiting): Status: Acute Code(s): R11.2 - Nausea with vomiting, unspecified; Z98.890 - Other specified postprocedural states Plan 76 year old female with below past medical history hospitalized with closed left femoral shaft fracture underwent ORIF 10/25/[address] Alvarado, admitted to TCU with debility, here for rehabilitation, strengthening, prior to discharge home with . * Debility - PT/OT. * Pain - Tylenol 650mg q4h prn pain (1-10), Tramadol 50mg - 100mg q6h prn pain (4-10) * Bowel - Senna/colace 2 tablets bid, Dulcolax 10mg daily prn. * Adult immunization - Administer pneumonia vaccine, covid19 vaccine, flu vaccine as appropriate. * DVT prophylaxis - Xarelto 10mg daily thru 11/08/2021, then Aspirin 81mg twice daily thru 11/23/2021. * Osteoarthritis - Celebrex 200mg daily. * Lichen Planus - Clobetasol topical bid prn. * ID - Doxycycline 100mg bid thru 11/08/2021. * Nutrition - Ensure Surgery 237ml po tidcm. * Hypertension - Lisinopril 5mg daily, HCTZ 25mg daily. * Indigestion - Mylanta II 30ml q6h prn. * Insomnia - Melatonin 3mg qhs prn. * Tinea Corporis - Nystatin powder tid. Medications at Discharge Home Medications celecoxib 200 mg capsule 200 mg PO DAILY arthritis pain 10/24/21 clobetasol 0.05 % topical ointment topical PRN Vaginal Irritation 10/24/21 hydrochlorothiazide 25 mg tablet 25 mg PO DAILY blood pressure 10/24/21 lisinopril 5 mg tablet 5 mg PO DAILY blood pressure 10/24/21 acetaminophen 325 mg tablet (Tylenol) 650 mg PO Q4H PRN PRN Fever, pain 1-12/25 #0 tabs 10/28/21 Hospital Course Operations - (ORIF left femur fracture.) Procedures None Summary of Care Provided Minutes Spent on Discharge: 35 Hospital Course: 76 year old female with below past medical history hospitalized with closed left femoral shaft fracture underwent ORIF 10/25/[address] Alvarado, admitted to TCU with debility, here for rehabilitation, strengthening, prior to discharge home with . Discharge home with 11/12/2021, Home Health Care PT/O/SN, Transport wheelchair prescription. Physical Exam Const alert General Appearance: cooperative HEENT normocephalic Eyes PERRL and EOMs intact bilaterally Neck supple, no JVD and no carotid bruits Resp normal respiratory effort, normal air movement and clear to auscultation bilaterally Cardio regular rate and regular rhythm GI normal to inspection, nondistended, normoactive bowel sounds, non-tender and non-distended Extremity normal capillary refill General Extremity: Negative for edema Skin no rashes or lesions noted General Skin Exam: no breakdown Psych affect normal Appearance: appropriate Weight / BMI Weight Weight: 79.01 kg Body Mass Index (BMI) 33.0 ABG / Lab / Microbiology Data Result Diagrams: 11/07/21 05:14 11/08/21 05:14 Microbiology: Microbiology 11/09/21 11:02 Nasal Secretion SARS-CoV-2 Antigen (Rapid) - Final 11/06/21 08:00 Nasal Secretion SARS-CoV-2 Antigen (Rapid) - Final 10/30/21 16:45 Nasal Secretion SARS-CoV-2 Antigen (Rapid) - Final D/C Instructions Discharge Diet: No restrictions Discharge Activity: Return to Normal Activity, May Not Shower and Use Walker May resume sexual activity in: 6-8 weeks Weight Bearing Status: Weight bearing as tolerated Call your doctor if you observe: Fever of 101 or Higher, Inability to urinate, Inability to have a bowel movement, Shortness of breath, Dizziness, Fainting spells, Swelling in the ankles, Chest pain and Uncontrolled pain Additional Instructions: Discharge home with 11/12/2021, Home Health Care PT/O/SN, Transport wheelchair prescription. Please Follow Up With: Victor Hugo Alvarado MD When: As scheduled. Meaningful Use Info Meaningful Use Diagnoses (Choose all that apply): None applicable Discharge Plan Admission Admit Date/Time: 10/30/21 13:50 Primary Reason for Your Visit: Debility. Attending Provider: Jermain Tran Chi Primary Care Provider: Kenny Mendenhall Instructions Additional Instructions / Restrictions: Discharge home with 11/12/2021, Home Health Care PT/O/SN, Transport wheelchair prescription. Discharge Orders/Prescriptions Prescriptions: Continued lisinopril 5 mg tablet 5 mg PO DAILY Label Comments: TAKE 1 TABLET BY MOUTH ONCE DAILY hydrochlorothiazide 25 mg tablet 25 mg PO DAILY Label Comments: TAKE 1 TABLET BY MOUTH ONCE DAILY celecoxib 200 mg capsule 200 mg PO DAILY Label Comments: TAKE 1 CAPSULE BY MOUTH ONCE DAILY WITH FOOD clobetasol 0.05 % ointment TOPICAL PRN (Reason: Vaginal Irritation) Label Comments: APPLY TO VULVA TWICE DAILY acetaminophen [Tylenol] 325 mg Tablet 650 mg PO Q4H PRN PRN (Reason: Fever, pain 1-10/10) Qty: 0 0RF Discontinued melatonin 3 mg Tablet 3 mg PO QHS PRN PRN (Reason: Insomnia) Qty: 0 0RF alum-mag hydroxide-simeth [Mag-Al Plus Extra Strength] 400-400-40 mg/5 mL Suspension 30 ml PO Q6H PRN PRN (Reason: Gastric Burning) Qty: 0 0RF tramadol 50 mg Tablet 50 - 100 mg PO Q6H PRN PRN (Reason: Pain Score 4-10) 5 Days Qty: 20 0RF sennosides-docusate sodium [Stool Softener-Stimulant Laxat] 8.6-50 mg tablet 2 tab PO BID doxycycline monohydrate 100 mg capsule 100 mg PO BID nystatin [Nyamyc] 100,000 unit/gram powder 1 applic topical TID Protocol: *Topical Application Instructions APPLICATION INSTRUCTIONS: to affected regions Rx Instructions: Apply to affected region Ensure Surgery 0.08-1.4 gram-kcal/mL liquid 237 ml PO TIDCM Xarelto 10 mg tablet 10 mg PO 0600 Rx Instructions: Following 2 weeks transition to aspirin 81 mg daily x 2 weeks. Referrals / Follow Up: Kenny Mendenhall MD [Primary Care Provider] - Victor Hugo Alvarado MD [Med Staff - Active Staff] - Within 2 Weeks Disposition Disposition (needs filled in before D/C Order can be placed): Home Health Service
[2021-11-10] MEDS: Celecoxib 200 MG Capsule PO (05:31)
[2021-11-10] MEDS: Senna/Docusate Sodium 1 Tablet 2 TABLET PO (05:31)
[2021-11-10] MEDS: Polyethylene Glycol 3350 17 GM PACKET PO (05:31)
[2021-11-10] MEDS: Aspirin 81 MG TAB.CHEW PO (05:31)
[2021-11-10] MEDS: Lisinopril 5 MG Tablet PO (05:34)
[2021-11-10] MEDS: hydroCHLOROthiazide 25 MG Tablet PO (05:34)
--- NOTE | 2021-11-10 10:28 | ST.MBS ---
Modified Barium Swallow - Patient Information Study Date: 11/10/21 Study Time: 09:30 Direct Billable Minutes: 90 Total Minutes procedure & reportin Diagnosis: R53.81 Referring Physician: Jermain Tran Chi Reason for Referral: Objectively assess swallow function, risk for aspiration, and determine recommendations for least restrictive diet textures and compensatory strategies to improve safety of swallow. Medical History: Lee Ann Flores is a 76 Female who presents to [facility] with left lower extremity pain status post fall. Chest X-ray okay. X-ray showed left femur fracture. Dr. Alvarado performed open reduction internal fixation left femoral shaft fracture. Patient was intubated for surgery and since has presented w/ hoarse vocal quality and frequent re-occuring cough. On 10/26/21 - Nausea from Tramadol. Toe Touch weight bearing left lower extremity x 6 weeks. On 10/27/21 nausea resolved, left pain controlled with Tramadol. Admitted to TCU with debility, here for rehabilitation, strengthening, prior to discharge home with who has Parkinson Disease. Current Diet Ordered: regular / thin liquids Dentition: Natural Teeth Mental Status: WNL Respiratory Status: Oxygenating on Room Air - Penetration-Aspiration Scale Penetration-Aspiration Scale: OBJECTIVE ASSESSMENT OF SWALLOW FUNCTION (QUANTITATIVE ? PER TRIAL): PENETRATION / ASPIRATION SCALE (SCHMIDT): 1 = does not enter airway 2 = enters airway/above vocal folds/ejected 3 = enters airway/above vocal folds/not ejected 4 = enters airway/contacts vocal folds/ejected 5 = enters airway/contacts vocal folds/not ejected 6 = enters airway/below vocal folds/ejected 7 = enters airway/below vocal folds/not ejected despite effort 8 = enters airway/below vocal folds/no effort VIDEOFLOROSCOPIC SCALE SCORE (SCHMIDT): Grade I = aspiration of material that has penetrated into the laryngeal vestibule, intact cough reflex Grade II = aspiration < 10 % of the bolus, intact cough reflex Grade III = aspiration of < 10 % of the bolus, reduced cough reflex or aspiration of > 10 % of the bolus, intact cough reflex Grade IV = aspiration of > 10 % of the bolus, reduced cough reflex - Penetration-Aspiration Scale Score Thin Liquid via teaspoon Result: 2= enter airway/above vocal folds/ejected Thin Liquid via small single sip from cup Result: 1= does not enter airway Thin Liquid via sequential sips from cup Result: 2= enter airway/above vocal folds/ejected [place] Thick Liquid via small single sip from cup Result: 1= does not enter airway Honey Thick Liquid via small single sip from cup Result: 1= does not enter airway Comment: minimal retention in UES Pudding via teaspoon Result: 8= enters airway/below vocal folds/no effort Comment: regurgitated and vomited pudding and liquids Cookie Result: 1= does not enter airway Thin Liquid via single sip from straw Result: 2= enter airway/above vocal folds/ejected - Oral Phase Labial Seal: No Labial Escape Tongue Control During Bolus Hold: Posterior escape of greater than half of bolus Bolus Preparation/Mastication: Slow prolonged chewing/mashing with complete recollection Bolus Transport/Lingual Motion: Delayed initiation of tongue motion Oral Residue: Complete oral clearance - Pharyngeal Phase Initiation of Pharyngeal Swallow: Bolus head in pyriforms Soft Palate Elevation: No bolus between soft palate and pharyngeal wall Laryngeal Elevation: Partial superior movement thyroid cart/partial apprx aryt-epig petiole Anterior Hyoid Excursion: Partial anterior movement Epiglottic Movement: Complete inversion Laryngeal Vestibule Closure at Height of Swallow: Incomplete; narrow column of air/contrast in laryngeal vestibule Pharyngeal Stripping Wave: Present - diminished Pharyngoesophageal Segment Opening: Parital distension and partial duration; parital obstruction of flow Tongue Base Retraction: No contrast between tongue base and posterior pharyngeal wall Pharyngeal Residue: Collection of residue within or on pharyngeal structures - Esophageal Phase Esophageal Clearance: Esophageal retention w/ retrograde flow through pharyngoesophageal seg - Diagnosis/Impression Diagnosis: mild oropharyngeal dysphagia R13.12 Impression: Patient presents w/ mild oropharyngeal dysphagia. Oral phase primarily marked by slowed prolonged chewing, delayed initiation of tongue motion and decreased bolus control d/t suboptimal bolus placement resulting in bolus head to the pyriforms. Pharyngeal phase primarily marked by reduced closure of the airway during deglutition attributed to reduced laryngeal elevation and reduced anterior hyoid excursion resulting in poor laryngeal vestibule closure. Partial anterior hyoid movement may be attributing to mildly decreased PES opening. Overall, maintain adequate airway closure w/ trace penetration w/ thin by tsp, thin w/ sequential sips via cup and thin via straw - all ejected by from laryngeal vestibule. Cannot rule out risk for reflux aspiration. Minimal retention in upper esophagus and UES w/ honey-thick consistencies. Patient w/ retrograde flow of pudding w/ emesis. Recommending ENT and GI consult. - Recommendations Diet: Regular Textures, Thin Liquids Compensatory Strategies: Small Bites, Small Sips, Slow Rate, Right head turn when swallowing, Sitting upright, Remain sitting upright for 30 minutes after PO intake Recommend Repeat Modified Barium Swallow: TBD Need for Skilled Speech Therapy Services: Yes Recommended Referrals: GI Consult, ENT Consult - hoarse vocal quality, frequent cough since surgery Education Completed: 1. Described result of evaluation., 2. Pt understands evaluation & agrees with goals and treatment plan. - Status Active ST Patient: Active - Contact Information [facility] Speech Therapy:: Fadumo Wilson M.A. [facility]-PROPERTY STAFF ACCOUNTANT Speech-Language Pathologist [facility] [address] [place] [address] [email or web address] [phone]
--- NOTE | 2021-11-10 11:57 | MDS.RN ---
Information for the mds was obtained from review of the clinical record, interview of resident, staff, and direct observation of resident's care.
--- NOTE | 2021-11-10 12:43 | NURSING ---
Patient and family notified of staff member testing positive for covid
--- NOTE | 2021-11-10 13:45 | CASEMGMT ---
Addendum entered by Sridevi Longoria 11/10/21 16:11: JUDI unable to select preferences via [employer] and contacted SW to provide new choices - 1. [facility], 2. [facility], 3. [facility]. SW phoned all agencies for referral. [facility] and [facility] cannot accept d/t out of service area. [facility] can accept and have PT SOC 11/13. SW called DIL to update. DIL agreed to use [facility] and appreciative of SOC date. Updated DIL on DME delivery to pt room today. JUDI appreciative. SW updated [facility] CABALLERO. Addendum entered by Sridevi Longoria 11/10/21 15:30: Faxed and emailed [place] to [facility] and spoke with [employer] Liaison for new referral and request for delivery to pts room today. Liaison agreed. All HHC agencies are out of pts service area. SW spoke with DIL to apologize and request additional preferences. An updated list of [facility] agencies provided to DIL via [employer]Port Guide Link. JUDI expressed concern with pt not being seen by HHC timely after DC since referral has been delayed. ADA apologized and expressed understanding. Educated to [facility] completing SOC within 48 hours of DC, depending on scheduling. Educated this worker will provide hand off to ED SW continuing to follow with [facility] referrals and appeal process. JUDI appreciative. ADA spoke with Covering Consuelo CABALLERO, and provided hand-off and followed up with email and [employer] hand off. SW to continue to follow. Plan: DC home with 11/12, pending appeal, C PT/OT/ST/SN, FWW, [facility] Original Note: Social Work Received [facility] preferences: 1. [facility], 2. [facility], 3. [facility], 4. [facility], 5. [facility]. Referral send via [facility]Port to [facility]. TURPENTINE DISTILLER spoke with pt and recommending [facility]WW and 3-in-1 commode. Pt understands insurance will only pay for one ambulation item and agreeable to FWW. Sridevi Longoria, SEARCH MARKETING SPECIALIST [employer]SEMBLER
[2021-11-10 15:22] VITALS: BP 111/67; PULSE 101; RESP 14; TEMP 36.8; O2SAT 98
[2021-11-10 22:12] VITALS: PULSE 104; O2SAT 100
[2021-11-11] MEDS: Polyethylene Glycol 3350 17 GM PACKET PO (05:42)
[2021-11-11] MEDS: Lisinopril 5 MG Tablet PO (05:48)
[2021-11-11] MEDS: Senna/Docusate Sodium 1 Tablet 2 TABLET PO ×2 (05:48→16:54)
[2021-11-11] MEDS: Aspirin 81 MG TAB.CHEW PO (05:48)
[2021-11-11] MEDS: Celecoxib 200 MG Capsule PO (05:48)
[2021-11-11] MEDS: hydroCHLOROthiazide 25 MG Tablet PO (05:48)
[2021-11-11 05:52] VITALS: BP 114/66; PULSE 87
[2021-11-11 09:08] VITALS: PULSE 96; RESP 14; O2SAT 98
[2021-11-11 15:25] VITALS: BP 90/58; PULSE 96; RESP 14; TEMP 36.7; O2SAT 98
--- NOTE | 2021-11-11 16:18 | NURSING ---
Family called in wanting update on appeal. Vaishali for [facility] Cordero, waiting for return call.
--- NOTE | 2021-11-11 16:35 | CASEMGMT ---
Addendum entered by Consuelo Sequeira 11/11/21 16:47: Social Work ADA learned [facility] is open 08/10, but there is no guarantee of when we will hear back on the appeal. ADA called Elsa to let her know this. SW also let her know that she may hear back before the hospital does in regard to the appeal. SW explained she can wait until later tomorrow to decide what to do, though if she does stay tomorrow night and the appeal is denied they would be responsible for the cost of the day. Daughter in law was aware of this. SW remains available to answer questions in regard to this. BROOKLYN Smith Original Note: Social Work DIL called in to TCU inquiring about the appeal as she has not heard anything. SW logged onto [facility], it says that the case is in review. SW called daughter in law to let her know that the case is still in review. The daughter in law is asking about the time frame. She states if they don't hear back they will likely take pt home, however she doesn't want to take pt home and then find out she was approved. ADA will try to find out this information for the daughter in law and call her back. BROOKLYN Smith
[2021-11-12] MEDS: Aspirin 81 MG TAB.CHEW PO (05:09)
[2021-11-12] MEDS: Senna/Docusate Sodium 1 Tablet 2 TABLET PO (05:10)
[2021-11-12] MEDS: Celecoxib 200 MG Capsule PO (05:10)
[2021-11-12] MEDS: hydroCHLOROthiazide 25 MG Tablet PO (05:10)
[2021-11-12] MEDS: Lisinopril 5 MG Tablet PO (05:10)
[2021-11-12 09:24] VITALS: PULSE 87; RESP 18; O2SAT 96
[2021-11-12 14:15] VITALS: BP 99/56; PULSE 87; RESP 18; TEMP 36.8; O2SAT 96
== END 2021-11-12 13:45 | disposition home health service (06) | DRG 561 ==
PROVIDERS: Admitting Provider Family Medicine Geriatric Medicine; PCP Family Medicine; Visit Provider Family Medicine Geriatric Medicine
DX: S72.92XD Unspecified fracture of left femur, subsequent encounter for closed fracture with routine healing (principal); B35.4 Tinea corporis; I10 Essential (primary) hypertension; M19.90 Unspecified osteoarthritis, unspecified site; W19.XXXD Unspecified fall, subsequent encounter; K21.9 Gastro-esophageal reflux disease without esophagitis; L43.9 Lichen planus, unspecified; E66.9 Obesity, unspecified; Z79.01 Long term (current) use of anticoagulants; Z68.33 Body mass index [BMI] 33.0-33.9, adult; Z86.718 Personal history of other venous thrombosis and embolism; Z79.899 Other long term (current) drug therapy; Z23 Encounter for immunization
CPT/HCPCS: 0064A; 36415; 74018; 74230; 80048; 85025; 87426; 87811; 91306; 92507; 92526; 92610; 92611; 96125; 97110; 97116; 97162; 97166; 97530; 97535; 97802; A4216

== ENCOUNTER 2022-01-09 12:09 | Day surgery (SDC) | payer MEDICARE, SELFPAY ==
[2022-01-09] VITALS (7 sets, daily range): BP systolic 107–131; BP diastolic 61–89; PULSE 79–103; RESP 16–18; TEMP 37.2–37.6; O2SAT 96–100; BMI 28.0
--- NOTE | 2022-01-09 | IMM_PTH ---
PATIENT: URSULA ARNOLD LOC: EN U#:[id number] AGE/SX: 76/F ROOM: RE01/09/[address]: Dr. Williams Jimenez DO : 1945 BED: DIS: 01/09/2022 SPEC #: [id number] RECD: 01/11/22 12:49 STATUS: VIJAYA REQ #: [id number] NAHUN: 01/09/22 00:[address]: Williams Jimenez DEPT: IMMUNOHISTOCHEMISTRY RECD BY: Sabiha Burr ENTERED: 01/11/22 12:49 SP TYPE: IMMUNO OTHR DR: Dr. Kenny Mendenhall MD Tissues: Esophageal mucous membrane Procedures: P53 (initial) KI-67 (add) PHYSICIAN & [place] [id number] SPECIMEN INFORMATION: Tissue Source: Distal esophagus biopsy Clinical Info: Dysphagia, GERD Specimen Number: [id number] CPT code: 76159, 61489 METHODOLOGY: Deparaffinized sections of prefer/formalin-fixed tissue or PAP/DQ stained slides are incubated with monoclonal/polyclonal antibodies/oligonucleotide probes. Localization is made via biotin free immunoperoxidase method. Appropriate controls are performed and reacted as expected. Results on target cell population are indicated in the following table: RESULTS: ANTIBODY / CLONE RESULT P53 (DO-7) negative Ki-67 (30-9) positive, low These tests were developed and their performance characteristics determined by [facility]. They may not have been cleared or approved by the U.S. Food and Drug Administration. The FDA has determined that such clearance or approval is not necessary. The above immunohistochemical/dualISH markers are ordered and reviewed by the Pathologist. INTERPRETATION: Distal esophagus, biopsy: Negative for dysplasia. AM:meek 01/12/2022
--- NOTE | 2022-01-09 12:41 | HP.PCM_ITS ---
History and Physical Date of Admission: 01/09/22 URSULA ARNOLD, is a 76 F who presents to the office today for dysphagia, referred by speech therapy, she had a modified barium swallow study on 11/10/21; impression was?mild oropharyngeal dysphagia. Speech therapist reported: Minimal retention in upper esophagus and UES w/ honey-thick consistencies. Patient w/ retrograde flow of pudding w/ emesis. She was recently hospitalized for left femur fracture sustained during a fall, had ORIF, then rehab at [facility]. She was intubated for surgery; had hoarse voice prior to surgery, but worse after intubation. She also has a chronic cough, always feels like something is in back of throat. She reports hx of acid reflux, suspicion of hiatal hernia approx 1.5 yrs ago; made lifestyle changes which helped with symptoms. No prior EGD. A few episodes of choking on food in past 1.5 yrs. Just started omeprazole today, prescribed by ENT Dr Soto whom she saw yesterday, was referred to him by speech therapy. ROS Const Constitutional: No fatigue, fever(s), frequent falls, headache(s) or weight change ENT ENT: Positive for difficulty swallowing; No headache(s) Resp Respiratory: Positive for cough Cough: Yes non-productive Cardio Cardiology: No leg pain with exertion Gastro GI: Positive for difficulty swallowing; No abdominal pain, bloating, change in bowel habits, constipation, diarrhea, heartburn, Vomiting blood/hematemesis, Blood in stool, nausea/dyspepsia or vomiting Musc Musculoskeletal: Positive for abnormal gait, joint swelling, stiffness and Arthritis; No joint pain, back pain, muscle cramps, muscle weakness, numbness, tingling, sciatica, leg pain at night or leg pain with exertion Skin Skin: No dry skin, lesions, itchy eyes or rash Neuro Neurology: Positive for abnormal gait; No dizziness, frequent falls, headache(s), numbness, tingling, tremor(s), Increased tone in limbs, paralysis or seizures Psych Psychiatric: No anxiety, No depression, No paranoia, No Behavioral Problems, No Compulsive Behavior, No hyperactivity, No inattentiveness, No obsessions/co mpulsions, Positive for Temper Tantrums and No suicidal ideation Endo Endocrine: No fatigue or weight change Aller/Imm Allergy/Immunologic: No itchy eyes [place]/Lymp Hematologic/Lymphatic: No easy bleeding or easy bruising Exam Const General: cooperative and no acute distress Orientation: alert, awake and oriented x3 Other: in wheelchair, has walker, appears tired. voice is hoarse, she coughs repeatedly. Quality Reporting Tobacco Screening ([facility] 138) Smoking Status: Never smoker Assessment and Plan Assessment and Plan (1) Dysphagia: ?Status:?Acute ?Plan: Agree with omeprazole, we'll see how that helps her symptoms Will schedule her for EGD--need to eval for esophagitis, Head's, stricture f/u 2 wks after for discussion of bx results (2) GERD (gastroesophageal reflux disease): ?Status:?Acute ?Plan: as above I have re-examined the patient and reviewed the H&P. There are no clinical changes since date of exam.
[2022-01-09] MEDS: Lactated Ringers 1,000 ML 15 ML IV (12:55)
--- NOTE | 2022-01-09 13:15 | EGD_PTH ---
PATIENT: URSULA ARNOLD LOC: EN U#:[id number] AGE/SX: 76/F ROOM: RE01/09/[address]: Dr. Williams Jimenez DO : 1945 BED: DIS: 01/09/2022 SPEC #: [id number] RECD: 01/09/22 14:09 STATUS: VIJAYA BLANCA #: [id number] NAHUN: 01/09/22 13:[address]: Williams Jimenez DEPT: SURGICAL PATHOLOGY RECD BY: Afshin Luke ENTERED: 01/10/22 08:32 SP TYPE: EGD BIOPSY OT DR: Dr. Kneny eMndenhall MD Tissues: Esophagus, NOS Procedures: Special Stain Group II Surgery Specimen Level IV Alcian Blue/PAS (control) HEADER OPERATION: [place] [place] with biopsies and dilatation PRE-OP DIAGNOSIS: Dysphagia, GERD TISSUE SUBMITTED: Distal esophagus biopsy MICROSCOPIC DIAGNOSIS Distal esophagus, biopsy: Gastroesophageal junctional mucosa with chronic inflammation. Focal goblet cell metaplasia. No evidence of dysplasia. See comment. AM:meek 01/11/2022 COMMENT Alcian blue/PAS stain with matched control supports the above diagnosis. Immunohistochemistry ([id number]) for P53 and Ki-67 will be performed and results will be reported separately. MICROSCOPIC DESCRIPTION Slides are reviewed. GROSS DESCRIPTION Received in fixative is one container labeled with the patient's name and designated distal esophagus biopsy. The specimen consists of two irregular fragments of light meng soft tissue that in aggregate measure 0.5 x 0.3 x 0.1 cm. The specimen is totally submitted in one cassette. / AM:meek 01/10/2022 TC:3 CPT: 93376, 73722
--- NOTE | 2022-01-09 14:08 | OP.CCLET_ITS ---
01/09/2022 Kenny Mendenhall Re : Upper GI endoscopy procedure for Lee Ann Thao Abdirashid This procedure was performed on Sunday, January 09, 2022. My impressions and recommendations are as follows: Impressions : - LA Grade A reflux esophagitis. Biopsied. - Benign-appearing esophageal stenoses. Dilated. - Small hiatal hernia. - No gross lesions in the first portion of the duodenum. Recommendations : - Discharge patient to home. - Resume previous diet. - Continue present medications. - Use Prilosec (omeprazole) 40 mg PO BID for 8 weeks. My findings are described in the full procedure note, which is enclosed. If I can be of further assistance, please feel free to contact me at . Sincerely, Williams Friend, 01/09/2022 2:07:47 PM This report has been signed electronically.
--- NOTE | 2022-01-09 14:08 | OP.EGD_ITS ---
Patient Name: Lee Ann Flores Procedure Date: 01/09/2022 1:40 PM Date of : 1945 Age: 76 Procedure: Upper GI endoscopy Indications: Dysphagia Providers: Williams Jimenez DO Medicines: Monitored Anesthesia Care Patient Profile: This is a 76 year old female. Refer to note in patient chart for documentation of history and physical. Patient has symptoms of chronic cough and dysphagia with solids. She is status post EGD for biopsy. Complications: No immediate complications. Procedure: Pre-Anesthesia Assessment: - Prior to the procedure, a History and Physical was performed, and patient medications and allergies were reviewed. The risks and benefits of the procedure and the sedation options and risks were discussed with the patient. All questions were answered and informed consent was obtained. Patient identification and proposed procedure were verified by the physician in the pre-procedure area. Mental Status Examination: alert and oriented. Airway Examination: normal oropharyngeal airway and neck mobility. Respiratory Examination: clear to auscultation. CV Examination: normal. Prophylactic Antibiotics: The patient does not require prophylactic antibiotics. Prior Anticoagulants: The patient has taken no previous anticoagulant or antiplatelet agents. ASA Grade Assessment: II - A patient with mild systemic disease. After reviewing the risks and benefits, the patient was deemed in satisfactory condition to undergo the procedure. The anesthesia plan was to use monitored anesthesia care (MAC). Immediately prior to administration of medications, the patient was re-assessed for adequacy to receive sedatives. The heart rate, respiratory rate, oxygen saturations, blood pressure, adequacy of pulmonary ventilation, and response to care were monitored throughout the procedure. The physical status of the patient was re-assessed after the procedure. After obtaining informed consent, the endoscope was passed under direct vision. Throughout the procedure, the patient's blood pressure, pulse, and oxygen saturations were monitored continuously. The gastroscope was introduced through the mouth, and advanced to the second part of duodenum. The upper GI endoscopy was accomplished without difficulty. The patient tolerated the procedure well. Scope In: 1:47:23 PM Scope Out: 1:55:18 PM Total Procedure Duration Time 0 hours 7 minutes 55 seconds Findings: LA Grade A (one or more mucosal breaks less than 5 mm, not extending between tops of 2 mucosal folds) esophagitis with no bleeding was found 38 to 39 cm from the incisors. Biopsies were taken with a cold forceps for histology. Verification of patient identification for the specimen was done. Estimated blood loss was minimal. Two benign-appearing, intrinsic stenoses were found 20 to 22 cm from the incisors. These stenoses were moderately severe and the narrowest stenosis measured 3 cm (in length). The stenoses were traversed. A guidewire was placed and the scope was withdrawn. Dilation was performed with a Savary dilator with no resistance at 60 Fr. The dilation site was examined and showed moderate improvement in luminal narrowing. Estimated blood loss was minimal. A small hiatal hernia was present. The exam of the stomach was otherwise normal. No gross lesions were noted in the first portion of the duodenum. Impression: - LA Grade A reflux esophagitis. Biopsied. - Benign-appearing esophageal stenoses. Dilated. - Small hiatal hernia. - No gross lesions in the first portion of the duodenum. Recommendation: - Discharge patient to home. - Resume previous diet. - Continue present medications. - Use Prilosec (omeprazole) 40 mg PO BID for 8 weeks. Procedure Code(s): --- Professional --- 25827, Esophagogastroduodenoscopy, flexible, transoral; with insertion of guide wire followed by passage of dilator(s) through esophagus over guide wire 16069, 59,51, Esophagogastroduodenoscopy, flexible, transoral; with biopsy, single or multiple CPT copyright 2017 [employer]. All rights reserved. The codes documented in this report are preliminary and upon vice president of advertising review may be revised to meet current compliance requirements. Williams Jimenez DO 01/09/2022 2:07:47 PM This report has been signed electronically. Number of Addenda: 0 Note Initiated On: 01/09/2022 1:40 PM
== END 2022-01-09 14:39 | disposition home or self-care (01) ==
LOC: EN 12:10 → AC 12:14
PROVIDERS: PCP Family Medicine; Referring Provider Family Medicine; Visit Provider Internal Medicine Gastroenterology
PROC: 0DJ08ZZ Inspection of Upper Intestinal Tract, Via Natural or Artificial Opening Endoscopic (ICD-10-PCS; CPT 43235; principal; 2022-01-09 13:10)
DX: R13.10 Dysphagia, unspecified (principal); K21.00 Gastro-esophageal reflux disease with esophagitis, without bleeding; K22.2 Esophageal obstruction; K44.9 Diaphragmatic hernia without obstruction or gangrene
CPT/HCPCS: 43239; 43248; 88305; 88313; 88341; 88342; J7120; C1769; J2405

== ENCOUNTER → 2022-05-02 | Outpatient (CLI) | payer MEDICARE, SELFPAY ==
--- NOTE | 2022-05-02 08:34 | CT_ITS ---
EXAM: CT LEFT LOWER EXTREMITY WITHOUT INTRAVENOUS CONTRAST CLINICAL INDICATION: FX KNEE JOINT TECHNIQUE: Helically acquired images were obtained of the left lower extremity without intravenous contrast. 2-D reformats were performed by the technologist. CTDIvol = ( 16.35 ) mGy, DLP = ( 1027.93 ) mGycm This CT exam was performed using one or more of the following dose reduction techniques: automated exposure control, adjustment of the mA and/or kV according to patient size, and/or use of iterative reconstruction technique. This report was created using [employer] report [employer] technology. COMPARISON: None. FINDINGS: BONES/JOINTS: Longstem total knee arthroplasty revision with no gross complications. Long lateral sideplate along the left femur with no gross complications. Mild to moderate left hip osteoarthrosis. No residual fracture lucencies are identified. SOFT TISSUES: Unremarkable. No soft tissue swelling or gas. No radiopaque foreign body. OTHER FINDINGS: Distal colonic diverticulosis but no acute diverticulitis. CT/Extremity Lower without Contra IMPRESSION: 1. Extensive postsurgical changes of the left femur/knee without complication. 2. No acute or healing fracture or malalignment. Electronically Signed: Winston Hayward MD at 4:00 EST ,
[2022-05-02 10:45] LABS: CRP 6.64 mg/L (0.0-3.0)
[2022-05-02 10:46] LABS: Erythrocyte Sedimentation Rate 9 mm/hr (0-30)
[2022-05-02 10:49] LABS: Absolute Lymphocyte Count 1.58 X10^3/uL (0.83-4.51); Absolute Neutrophil Count 2.9 X10^3/uL (2.0-7.7); Basophil# 0.05 X10^3/uL; Basophil% 0.9 % (0-1); Eosinophil# 0.18 X10^3/uL; Eosinophils% 3.4 % (0-5); Hematocrit 38.4 % (37-47); Hemoglobin 12.2 g/dL (12.0-15.0); Lymphocyte # 1.58 X10^3/ul (0.83-4.51); Lymphocyte % 29.4 % (19-41); Mean Corp Hgb Conc 31.8 g/dL (32-36); Mean Corpuscular Hgb 28.8 pg (27.0-32.0); Mean Corpuscular Volume 90.6 fL (81-99); Mean Platelet Vol. 10.3 fl (6.2-12.0); Monocyte# 0.69 X10^3/uL; Monocyte% 12.8 % (0-10); NRBC Flagged by Analyzer 0 % (0-5); Neutrophil # 2.85 X10^3/uL (2.7-7.7); Neutrophil % 53.1 % (47-70); Platelet Count 293 K/mm3 (150-450); RBC Distribution Width CV 15.7 % (11.6-14.6); RBC Distribution Width SD 50.9 fl (35.1-43.9); Red Blood Count 4.24 M/mm3 (4.2-5.4); White Blood Count 5.4 K/mm3 (4.4-11.0)
== END | disposition home or self-care (01) ==
PROVIDERS: PCP Family Medicine; Referring Provider Specialist; Visit Provider Specialist
DX: M97.12XD Periprosthetic fracture around internal prosthetic left knee joint, subsequent encounter (principal); Z96.652 Presence of left artificial knee joint
CPT/HCPCS: 36415; 73700; 85025; 85652; 86140

== ENCOUNTER 2022-07-25 09:10 | Inpatient (IN) | payer MEDICARE, SELFPAY ==
--- NOTE | 2022-07-16 08:13 | EKG12_ITS ---
Test Reason : PREOP Blood Pressure : / mmHG Vent. Rate : 067 BPM Atrial Rate : 067 BPM P-R Int : 150 ms QRS Dur : 120 ms QT Int : 402 ms P-R-T Axes : 072 -36 075 degrees QTc Int : 424 ms Normal sinus rhythm Left axis deviation Abnormal ECG Confirmed by BHAVESH FINE, POONAM ([id number]), editor in chief KATHERYN ENGLISH ([id number]) on 07/16/2022 11:18:49 AM Referred By: BRE Confirmed By:POONAM OSPINA MD
[2022-07-16 08:43] LABS: Absolute Lymphocyte Count 1.51 X10^3/uL (0.83-4.51); Absolute Neutrophil Count 2.6 X10^3/uL (2.0-7.7); Basophil# 0.04 X10^3/uL; Basophil% 0.8 % (0-1); Eosinophil# 0.12 X10^3/uL; Eosinophils% 2.4 % (0-5); Hematocrit 37.8 % (37-47); Hemoglobin 12.2 g/dL (12.0-15.0); Lymphocyte # 1.51 X10^3/ul (0.83-4.51); Mean Corp Hgb Conc 32.3 g/dL (32-36); Mean Corpuscular Hgb 29.2 pg (27.0-32.0); Mean Corpuscular Volume 90.4 fL (81-99); Mean Platelet Vol. 9.3 fl (6.2-12.0); Monocyte# 0.76 X10^3/uL; Monocyte% 15.1 % (0-10); NRBC Flagged by Analyzer 0 % (0-5); Neutrophil % 51.5 % (47-70); Platelet Count 328 K/mm3 (150-450); RBC Distribution Width CV 14.5 % (11.6-14.6); RBC Distribution Width SD 47.9 fl (35.1-43.9); Red Blood Count 4.18 M/mm3 (4.2-5.4)
[2022-07-16 09:11] LABS: Magnesium 2.3 mg/dL (1.6-2.6)
[2022-07-16 09:28] LABS: Albumin, Serum 3.5 g/dL (3.2-5.0); Anion Gap 6 (5-15); BUN 27 mg/dL (7-18); BUN/Creat Ratio 27.2 RATIO (10-20); Calcium,Total 10.5 mg/dL (8.5-10.1); Chloride 104 mmol/L (98-107); Creatinine, Serum 0.99 mg/dL (0.55-1.02); EST Glomerular Filtration Rate 58 mL/min (>60); Est Glom Filt Rate - Afr Amer 70 mL/min (>60); Glucose 107 mg/dL (74-106); Potassium 3.8 mmol/L (3.5-5.1); Sodium Level 136 mmol/L (136-145)
--- NOTE | 2022-07-17 07:34 | PCM.HP.BLA ---
History and Physical History and Physical? Patient Name: Lee Ann Flores : 1945 From:? JAZMYNE LOWE PA-C? DATE OF SURGERY:? 07/25/2022 SCHEDULED PROCEDURE:? ?Hardware removal left femur with revision left total knee arthroplasty HISTORY OF PRESENT ILLNESS: Preoperative history and physical exam was performed on July 16, 2022.? This is a 76-year-old female who has had previous left total knee arthroplasty by Dr. Adrian Fuller in 2002.? This was followed by a left revision total knee arthroplasty secondary to aseptic loosening on October 03, 2009.? Patient recently in October 2021 was trying to clean underneath the refrigerator when she caused a fall and twisting type injury of the left leg.? This did reveal a distal femur fracture involving the revision total knee arthroplasty.? She was [facility] to [facility] in which Dr. Victor Hugo Alvarado performed an open reduction internal fixation of left femur fracture.? Patient does report having knee pain prior to this injury in October 2021.? She was treated postoperatively with weightbearing restrictions in which she was nonweightbearing progressing to partial weightbearing and then weightbearing as tolerated.? She continues to complain of pain in the left knee.? Her pain as being constant, aching, sharp.? She has difficulty with activities of daily living including housework and shopping.? She feels unsafe rowing up and down stairs.? She has attempted physical therapy and home exercises as well as rest, ice, elevation.? She has had previous surgeries on the left knee and femur as listed above.? She has been using a walker for the past 8 months.? Patient has had a recent CT scan of the left femur which does show adequate healing.? Patient does have medical history pertinent for previous DVT in 1993 and the right lower extremity after a knee arthroscopy.? She has hypertension, lupus, previous skin cancer, lichens sclerosis.? Patient currently denies any chest pain, shortness of breath, fevers chills or recent infections.? She recently had lab work and EKG today.? We are getting surgical clearance from the primary care physician Dr. Kenny Mendenhall.? Patient has had lab work today.? After failing conservative measures and discussing all treatment options was Dr. Victor Hugo Alvarado, the patient does wish to proceed with hardware removal left femur with revision left total knee arthroplasty.? Patient states she does have help at home with her who does have early Parkinson's.? She also has helped with some of her family. REVIEW OF SYSTEMS: ROS: Const: Denies anorexia, anxiety, change in appetite, fatigue, fever and weight change. CV: Reports peripheral vascular disease, but denies chest pain, heart murmur and irregular heartbeat. Resp: Denies asthma, cough, pneumonia, sleep apnea, shortness of breath, tuberculosis and wheezing. GI: Denies constipation, diarrhea, heartburn, nausea, bloody stools and vomiting, and difficulty swallowing. : Denies incontinence. Musculo: Reports gait disturbance, leg swelling, pain and trouble walking. Skin: Denies Raynaud's, history of shingles and tattoo. Neuro: Denies ambulatory dysfunction, dizziness, numbness/tingling and tremor. Psych: Denies anxiety, depression, insomnia, mental illness and stress. Chinmay/Lymph: Reports bleeding/bruising tendency, but denies anemia and past transfusion. Reviewed and updated. PAST MEDICAL HISTORY: Advance Care Plan: Other Directive, POA Effective Date: 12/18/2016 Other Directive, LIVING WILL Effective Date: 12/18/2016 PMH: Medical Problems: High Blood Pressure, History Of Phlebitis, Arthritis, Lupus, Lichens Sclerosis Cancer - SKIN History Of Blood Clots/ DVT, Acid Reflux Accidents: None Surgical Hx: Tonsillectomy - 195 Hysterectomy - 1981 Arthroscopy - 1993 (3x) knee B/L? 2 ON RT AND ONE ON LEFT Knee Replacement - 2002 left, 2004 right Revision LT TKR - (10/03/2009) [email or web address] RT TKR Revsion - (2018) RT Ankle Right - (05/12/2019) [facility] @ [facility] Skin Cancer Removed From Nose - (09/2019) ORIF Left Femoral Shaft Fracture - (10/25/2021) [facility] @ [facility] Anesthesia Complications: Nausea Assistive Devices: Glasses, Walker Reviewed and updated. SOCIAL HISTORY: SH: Marital: .Occupation: Teacher Retired.Work Status: Retired.Hand Dominance: Right-handed. Personal Habits:? Cigarette Use: Never.Smokeless Tobacco: Never Used Smokeless Tobacco.E-Cigarette Use: Never used.Alcohol: Denies use.Drug Use: Denies Use.Enjoy Exercising: Exercises 1-3 X/Week. Reviewed and updated. VITALS: Ht: 63 Wt: 161lb Wt k.030 BMI: 28.5 BP: 124/76 Pulse: 68 Resp: 13 T: 97.1 T: 36.2C Pain Level: 7 O2SatR: 100 ALLERGIES: Vicodin Relafen - Dizzy Morphine Hydrocodone Tramadol Nabumetone? MEDICATIONS: Acetaminophen 325 mg every 4 hours as needed, Celebrex 200 mg 1 po qd, Lisinopril 5 mg 1 po q DAY, Hydrochlorothiazide 25 mg 1 by mouth every day, Omeprazole 20 mg once daily PRE-OP EXAM:? General appearance:NORMAL? ? ? Other: Eyes: Conjunctivae and lids: NORMAL? Pupils: ERR Ears, Nose, Mouth, and Throat: NORMAL? Other: Inspection of lips, teeth and gums: NORMAL? ?Other: Neck: Examination of neck: no masses noted. Respiratory: Assessment of respiratory effort: NORMAL? ?Other: ?Auscultation of lungs: clear to auscultation no wheezes, rhonchi or rales. Cardiovascular:? Auscultation of heart: regular rate and rhythm, no murmurs, gallops or rubs. PHYSICAL EXAMINATION: Previous incisions to the left knee and leg are well-healed without any signs of infection.? She continues to use walker for ambulatory assistance.? She does walk with antalgic gait.? Range of motion: 10-90 flexion.? Sensation intact to light touch. IMAGING STUDIES: Previous CT scan of the left femur shows adequate healing of the femur fracture.? There is lucency along the plate medial/proximal aspect of this spiral fracture.? The cables are distal to this fracture and screws are proximal. Previous x-rays of the knee also reveal femoral shaft periprosthetic fracture with press-fit femoral stem with lucencies around the femoral stem consistent with implant loosening Inflammatory markers on May 02, 2022 had CRPS 6.64 and ESR 9 IMPRESSION: 1.? Painful left total knee arthroplasty with loosening 2.? Previous left open reduction internal fixation femur fracture 3.? Hypertension 4.? Previous history of DVT 1993 5.? Gastroesophageal reflux disease 6.? Lupus 7.? Previous skin cancer 8.? Lichens Sclerosis PLAN: Dr. Victor Hugo Alvarado did discuss and review with the patient all treatment options including surgical versus nonsurgical options.? Patient does wish to proceed with the above-stated procedure.? Potential risks, benefits, and complications of the procedure were discussed in detail including but not limited to , infection, nerve and blood vessel damage, persistent pain, numbness, tingling, paresthesias, blood clot, pulmonary embolism, and requirement for possible further surgery.? The patient expressed full understanding and has no further questions for the doctor.? Patient does agree to proceed with the above-stated procedure and has signed the surgery consent form. POST-OP MEDICATION PLAN: Postop plan: Patient does want to try to go home if medically stable.? She states she does have help at home with her who does have early onset of Parkinson's but also has help from family.? I did explain to her that with this type of surgery we will need to see how she does postoperatively in which physical therapy will be on board to give their recommendations.? Case management will also be on board for appropriate and safe discharge planning. DVT Prophylaxis: Rivaroxaban postoperatively due to previous DVT in 1993.? We will do 2 weeks of Rivaroxaban followed by additional 2 weeks of aspirin 81 mg twice daily. This dictation was created using voice recognition software. Phonetic and/or grammatical errors may exist. ___? I have re-examined the patient.? There are no clinical changes since date of exam. ___? See progress notes for changes. ___? Dictated on admission Date: ? ? ?Time: Signature:
[2022-07-25] VITALS (14 sets, daily range): BP systolic 94–128; BP diastolic 57–100; PULSE 66–101; RESP 11–18; TEMP 36.2–37.2; O2SAT 96–100; BMI 28.8
[2022-07-25] MEDS: Acetaminophen 500 MG Tablet 1000 MG PO ×2 (09:52→21:01)
[2022-07-25] MEDS: Celecoxib 200 MG Capsule 400 MG PO (09:52)
[2022-07-25] MEDS: Gabapentin 600 MG Tablet PO (09:52)
[2022-07-25] MEDS: Lactated Ringers 1,000 ML 999 ML IV ×2 (10:03→16:14)
[2022-07-25] MEDS: Magnesium 1 GM over 15 mins IV (10:04)
[2022-07-25] MEDS: Lactated Ringers 1,000 ML 75 ML IV ×2 (10:04→16:39)
[2022-07-25 10:06] LABS: Bedside Glucose 78 mg/dL (74-106)
--- NOTE | 2022-07-25 11:45 | KNEE_PTH ---
PATIENT: URSULA ARNOLD LOC: MS3 U#:[id number] AGE/SX: 76/F ROOM: [facility] [place]07/25/[address]: Dr. Victor Hugo Alvarado MD : 1945 BED: 1 DIS: 07/28/2022 SPEC #: [id number] RECD: 07/25/22 15:32 STATUS: VIJAYA REEna #: [id number] NAHUN: 07/25/22 11:[address]: Victor Hugo Alvarado DEPT: SURGICAL PATHOLOGY RECD BY: Whitney Menon ENTERED: 07/26/22 09:44 SP TYPE: TOTAL KNEE OTHR DR: DO Dr. Lalo Gonzalez MD Dr. Scott Brown, MD Tissues: Knee, NOS Procedures: Surgery Specimen Level III HEADER OPERATION: ERAS, hardware removal femur, revision total knee arthroplasty PRE-OP DIAGNOSIS: Painful left total knee arthroplasty with loosening; previous left open reduction internal fixation femur fracture TISSUE SUBMITTED: Left knee bone and soft tissue MICROSCOPIC DIAGNOSIS Bone and tissue, left knee, removal of hardware and revision total knee arthroplasty: Fragments of dense fibroconnective tissue with fibrinous exudation, granulation tissue reaction, chronic inflammation, histiocytic reaction, foreign body giant cell reaction and dystrophic calcification. JANESSA:meek 08/06/2022 MICROSCOPIC DESCRIPTION Slides are reviewed. GROSS DESCRIPTION Received is one container designated left knee bone and tissue. The specimen consists of two meng, indurated pieces of tissue measuring in aggregate 5.0 x 3.5 x 1.6 cm. A third smaller piece is also present measuring 1.5 x 0.7 x 0.2 cm. Bone is not present in the specimen. Two larger pieces shows focal black discoloration. Impregnator Electrolytic Capacitors sections are submitted in two cassettes. / JANESSA:meek 07/26/2022 TC:5 CPT: 91720
[2022-07-25] MEDS: Cefazolin 2 GM in 0.9% Normal Saline 100 ML IV (12:02)
[2022-07-25] MEDS: JPS (Morphine 10mg/ml) OPERA.SITE (15:10)
--- NOTE | 2022-07-25 15:12 | OP.PCM_ITS ---
Report of Operation Date of Procedure: 07/25/22 Type of Anesthesia: Spinal Anesthesiologist: Kameron Hurtado Estimated Blood Loss (mL): 250 Fluids Replaced: 1200 ML CRYSTALLOID Admit VTE Documentation VTE Present on Admission: No VTE Mechan Device Prophylaxis: SCD's and Thigh High ANDREAS Hose VTE Pharm Prophylaxis ordered?: Yes
--- NOTE | 2022-07-25 15:12 | PCM.OPRPT ---
Report of Operation Date of Procedure: 07/25/22 Pre-Operative Diagnosis: Failed left total knee replacement, aseptic loosening Previous distal femur fracture, sequela Post-Operative Diagnosis: Failed left total knee replacement, aseptic loosening Previous left distal femur fracture, sequela Surgery/Procedure Performed:: Revision left total knee replacement completed femoral and tibial components. Removal of hardware left distal femur. Description of Surgical Findings:: Patient had 4 screws from the distal femur fracture lateral plate that needed to be removed. The incision needed to be extended in order to appropriately identify the screws and remove them. Additionally we had do a more extensive approach in order to get lateral and the femur and remove the screws. Surgeon: Victor Hugo Alvarado quality assurance assessor: John Garcia Type of Anesthesia: Spinal Anesthesiologist: Kameron Hurtado Special Medications: 2 g Ancef, 1 g TXA at incision, 1 g TXA closure, 10 mg Decadron, joint cocktail (5 mg Duramorph, 30 mL of 0.5% Ropivicaine, 1000 units of epinephrine, 30 mg of Toradol) Specimen's removed: 3 separate specimens were sent to microbiology Estimated Blood Loss (mL): 250 Fluids Replaced: 1200 ML CRYSTALLOID Description of Procedure: Implants used: Femur: [place] triathlon size 3 left total stabilized distal femoral component with 15 mm augments distally medially and laterally and 10 mm augments posteriorly medially and laterally. Size 5 bilobed cone was used. A fluted 19 mm x 100 mm stem was cemented into place Tibia: Size 3 universal Holly tibial baseplate. 12 x 50 mm stem. Size C cone Poly: 19 mm trackers triathlon X3 total stabilized polyethylene Brief history operative indications: 76-year-old F with total knee replacement done previously with subsequent revision. Patient demonstrated evidence of aseptic loosening. Patient did have a previous distal femur fracture which was fixed with lateral plate. After ruling out infection we agreed to proceed with revision total knee replacement which had risks which include but not limited to blood loss, DVTs, PEs, nervous damage, infection, the risk of anesthesia. Patient demonstrate understanding was able to sign informed consent. Medical clearance was obtained. Procedure: On the date of procedure patient's left lower extremity was marked in the preoperative area. The patient was then taken back to the operating room where the patient was placed on the table in the supine position. All bony prominences were identified a well-padded. Anesthesia assumed control of the C-spine and airway and remained controlled throughout the remainder of the procedure. A tourniquet was placed on the left upper thigh and the leg was prepped in a sterile fashion. The surgeon then scrubbed at this time. Upon reentering the room left lower extremity was draped in a standard orthopedic fashion. A timeout was then called and everyone agreed upon the side, the site, the procedure to be performed, patient's identity and antibiotics given. An Esmarch bandage was used to exsanguinate the extremity and the tourniquet was placed up to 250 mmHg with the knee in flexion. A midline skin incision was made using the previous incision and extending it proximally and distally to identify normal tissue planes. Medial and lateral flaps were developed appropriate releases. The standard medial parapatellar arthrotomy was made and the patella was subluxed laterally. At this time an aggressive synovectomy was performed re-creating the medial gutter first, then the suprapatellar pouch than the lateral gutter. Once this was completed the knee was flexed up an osteotome was used to remove the tibial polyethylene. The remainder of the synovium was debrided. The standard deep MCL release was done and the patella scar pad was resected and lateral releases were performed. Next our attention was directed to the femur. Where flexible osteotomes and TPS saw were used to break up the implant cement interface. This was done both medially and laterally. After this a bone tamp was used to remove the femur component from the end of the bone. This was done with minimal bone loss. At this time attention was now directed towards the proximal tibia. Possible osteotome and TPS saw were then used to break up the proximal tibia implant interface and stacked osteotomes were used to remove the tibial implant. This was done with minimal bone loss. Our attention was then directed towards the lateral femur. We did extend the incision and made a quadricep snip arthrotomy in order to reach the lateral femur. 4 screws were removed from the distal femur plate. Our attention was then turned to the tibia where the intramedullary canal was reamed to 14 mm and a size C tibial cone was reamed. We then made a cleanup cut on the tibia, A drop marilyn was then used to verify the cut. A size 4 tibial base plate was selected. the knee was flexed and the tibial component was pinned into place and the boss reamer was used to ream the proximal medullary canal. The trial implant was impacted in its prepared position. Our attention was then turned back to the femur or the femur intramedullary canal was reamed to 19 mm using the previous implants a size 3 TCG cutting guide with a 19 x 100 mm mm stem was put into place. The medial epicondyle was used to set the joint line. With this TCG cutting guide we used a 19 mm mm polyethylene trial in order to help balance the gaps. Once the gaps were appropriately balanced the guide was firmly pinned into place. Distal cuts were made with 15 mm augments medially and 15 mm augment laterally. Posterior cuts were made with 10 mm augments medially and 10 mm augment laterally. Using the guide the box cut was made using a reciprocating saw. Using the intramedullary guide we then reamed for a size 5 cone. Cone trial was placed. The appropriate trials were then placed on the femur and tibia. A trial polyethylene was trialed to ensure proper balancing and stability of the knee. Patella tracking, was then verified and corrected appropriately as needed. Our attention was then directed to the patella. Patella remained intact and appropriate. Based on x-rays it was firmly fixed. Patellar tracking was again checked and deemed appropriate. Final components were verified and opened, 6 liters of normal saline were irrigated throughout the joint under low-pressure lavage. Then the cement was mixed in a vacuum. [place] Simplex cement with tobramycin was used. The wound was copiously irrigated with normal saline. When the cement was ready cement plugs were placed in the tibial cone was placed the components were cemented into place starting with the tibia first. The size 4 tibia did not seat appropriately. We did remove it and any available cement. We elected to size down and use a smaller stem and do a cement and cement technique with the cement that had already cured. The cone was stable. We reviewed mixed the cement for the tibia and cemented the size 3 universal tibial baseplate with a 12 x [address]. Next we mixed for the femur and cemented the femur and placed.. The trial poly component was placed and the knee was placed in full extension. All excess cement was removed in the process. Once the cement had cured the tracking, alignment and balance were verified and a size 19 mm TS mm TS polyethylene component was placed. Once the final components were placed a 3-minute dilute Betadine lavage and a a chlorhexidine lavage was used and the wound was copiously irrigated with normal saline solution and the remainder of the periarticular injection was given. The wound was closed in a layer brown fashion using #1 vicryl interrupted sutures for the arthrotomy, 2-0 interrupted Vicryl for the subcuticular layer and nylon sutures for final skin closure. A sterile compressive dressing was then placed. The patient was then awakened from anesthesia, transferred to the [facility] and transferred to the PACU for recovery. Post op plan DVT ppx: Xarelto due to previous VTE for 2 weeks followed by aspirin for 2 weeks, thigh high compression stockings Follow up: in office in 2 weeks for wound check PT: to start POD #0 at hospital, outpatient PT should be arranged. My physician chemist assistant was a vital part of this case. He was important in appropriate retraction during the case, and protection of soft tissues during bony cuts. His intimate knowledge of the case and my steps aided in safe and expedient completion of the procedure as well as appropriate position of the leg during the case. He was also vital in assisting with closure under my direct supervision. Complications No intraoperative complications Admit VTE Documentation VTE Present on Admission: No VTE Mechan Device Prophylaxis: SCD's and Thigh High ANDREAS Hose VTE Pharm Prophylaxis ordered?: Yes
[2022-07-25] MEDS: TXA in NS 100ml (Placed in Wound) OPERA.SITE (15:17)
--- NOTE | 2022-07-25 16:25 | RAD_ITS ---
INDICATION: post op -- AP and Lateral xray of operative knee in PACU EXAMINATION/TECHNIQUE: X-RAY - LEFT XR Knee 4 VIEWS COMPARISON: October 25, 2021 FINDINGS: There is a revised total left knee replacement. A metallic plate is noted along the femur for a distal femoral shaft fracture . Multiple screws have been removed from the distal end of this plate since the previous study. There is subcutaneous emphysema within the thigh. RAD/Knee 1 or 2 Views IMPRESSION: Status post total knee replacement with changes as noted. Electronically Signed: Khurram Lauren DO at 16:51 EDT ,
[2022-07-25] MEDS: Lactated Ringers 1,000 ML 125 ML IV (17:20)
--- NOTE | 2022-07-25 17:43 | PN.HOSP_ITS ---
Subjective Subjective 76-year-old female status post revision of a left total knee replacement due to aseptic loosening. She just returned from surgery so she is still very groggy and sleepy. Objective Data Objective Data Vital Signs: Vital Signs Temp Pulse Resp BP Pulse Ox O2 Del Method O2 Flow Rate 97.5 F L 66 15 107/58 L 97 Room Air 4 07/25/22 17:15 07/25/22 17:15 07/25/22 17:15 07/25/22 17:15 07/25/22 17:15 07/25/22 17:15 07/25/22 16:45 Oxygen Flow Rate (L/min) 4 Oxygen Delivery Method Room Air Weight: 163 lb Body Mass Index (BMI) 28.8 Intake & Output: Intake and Output for Last 24 Hours 07/24/22 07/25/22 07/26/22 03:59 03:59 03:59 Intake Total 2710 / 2710 Balance 2710 / 2710 Lab / Micro Data Result Diagrams: 07/16/22 08:31 07/16/22 08:31 Labs: Laboratory Results - last 24 hr 07/25/22 09:38: POC Glucose 78 Micro: Microbiology 07/16/22 08:31 Nasal Secretion Nasal Screen MRSA/MSSA - Final Radiography Diagnostic Testing: Radiology Impression Knee X-Ray 07/25/22 16:25 IMPRESSION: Status post total knee replacement with changes as noted. Electronically Signed: Khurram Lauren DO at 16:51 EDT Reading Location ID and State: [address] [place] [address] Tel [phone], Service support , Physical Exam Narrative General: Sleepy due to anesthesia oriented x3, Cooperative, No apparent distress HEENT: Atraumatic, PERRLA, EOMI, Normocephalic Oral: Moist Mucosa Neck: Supple, No JVD Lungs: Diminished, Normal air movement, No rhonchi, No wheeze, No rales Cardiovascular: Regular rate, Regular Rhythm, Normal S1, Normal S2, No murmurs Abdomen: Soft, Non Tender, Non-Distended, No Hepato-splenomegaly Extremities: No edema, Capillary Refill Less than 3 Seconds Skin: No rashes, No breakdown, dressing CDI Musculoskeletal: No Tenderness to Palpation of Joints or Extremities Neurological: Cranial nerves II-XII grossly intact, Motor Exam 5/5 strength throughout, Sensory exam intact to light touch and pain Psych/Mental Status: Tired Assessment & Plan Assessment/Plan (1) Status post revision of total replacement of left knee: PLAN: Plan 1. Status post revision of left total knee due to aseptic loosening ? PT/OT ? Pain management per primary ? Antibiotics per 2. Hypertension ? Blood pressures are stable ? Continue with hydrochlorothiazide and lisinopril, BMP is pending if creatinine is slightly elevated we would hold these tomorrow 3. GERD ? Stable ? Continue with PPI Of note she did have a TIA previously after of femur surgery DVT: Anitha Charges/Coding Visit Charges Inpatient E&M: 48163 Subs Hosp L2
[2022-07-25] MEDS: Ondansetron 4 MG/2 ML Vial IV (18:09)
[2022-07-25] MEDS: 0.9% Saline Lock 10 ML Syringe IV (18:10)
[2022-07-25] MEDS: proMETHazine 25 MG/ML Syringe 12.5 MG IM (20:18)
[2022-07-25] MEDS: Cefazolin 1 GM/50 ML BAG IV (20:43)
[2022-07-25] MEDS: Senna/Docusate Sodium 1 Tablet 2 TABLET PO (21:02)
[2022-07-26 02:05] VITALS: BP 101/62; PULSE 63; RESP 16; TEMP 36.6; O2SAT 100
[2022-07-26] MEDS: Cefazolin 1 GM/50 ML BAG IV (04:02)
[2022-07-26] MEDS: Rivaroxaban 10 MG Tablet PO (05:56)
[2022-07-26] MEDS: Acetaminophen 500 MG Tablet 1000 MG PO ×3 (05:57→21:02)
[2022-07-26 06:44] LABS: Hematocrit 31.2 % (37-47); Hemoglobin 9.9 g/dL (12.0-15.0); Mean Corp Hgb Conc 31.7 g/dL (32-36); Mean Corpuscular Hgb 29.1 pg (27.0-32.0); Mean Corpuscular Volume 91.8 fL (81-99); Mean Platelet Vol. 9.8 fl (6.2-12.0); POSITIVE COUNT YES; Platelet Count 99 K/mm3 (150-450); RBC Distribution Width CV 15.1 % (11.6-14.6); RBC Distribution Width SD 50.2 fl (35.1-43.9)
[2022-07-26 06:58] LABS: Scan Indicated on CBC? Y/N YES- FLAGS NOTED
[2022-07-26 07:10] LABS: Anion Gap 3 (5-15); BUN 15 mg/dL (7-18); BUN/Creat Ratio 18.8 RATIO (10-20); Calcium,Total 8.8 mg/dL (8.5-10.1); Chloride 108 mmol/L (98-107); EST Glomerular Filtration Rate 74 mL/min (>60); Est Glom Filt Rate - Afr Amer 90 mL/min (>60); Estimated Creatinine Clearance 48.72 ml/min; Glucose 108 mg/dL (74-106); Potassium 3.8 mmol/L (3.5-5.1); Sodium Level 139 mmol/L (136-145)
--- NOTE | 2022-07-26 07:10 | PCM.PN.HOSP ---
Reason for Visit Reason for Visit: Left total knee arthroplasty revision Subjective Subjective Patient is seen in follow-up status post left total knee arthroplasty due to aseptic loosening. Patient states she is feeling okay this morning. Was a little lightheaded with transferring to the chair. Feels better at this time. Per discussion with Dr. Alvarado's physician glass ribbon machine operator assistant there was quite a bit of blood loss during surgery and he is not surprised with the drop in her hemoglobin. Objective Data Objective Data Vital Signs: Vital Signs Temp Pulse Resp BP Pulse Ox O2 Del Method O2 Flow Rate 98 F 63 16 101/62 100 Room Air 2 07/26/22 02:05 07/26/22 02:05 07/26/22 02:05 07/26/22 02:05 07/26/22 02:05 07/26/22 06:00 07/26/22 02:05 Oxygen Flow Rate (L/min) 2 Oxygen Delivery Method Room Air Weight: 73.936 kg Body Mass Index (BMI) 28.8 Intake & Output: Intake and Output for Last 24 Hours 07/24/22 07/25/22 07/26/22 23:59 23:59 23:59 Intake Total 3910.75 / 4060.75 1389.75 / 1389.75 Output Total 1000 / 1000 Balance 3910.75 / 3760.75 389.75 / 389.75 Lab / Micro Data Result Diagrams: 07/26/22 10:51 07/26/22 06:28 Labs: Laboratory Results - last 24 hr 07/25/22 09:38: POC Glucose 78 07/26/22 06:28: WBC 4.0 L, RBC 3.40 L, Hgb 9.9 L, Hct 31.2 L, MCV 91.8, MCH 29.1, MCHC 31.7 L, RDW Std Deviation 50.2 H, RDW Coeff of Garret 15.1 H, Plt Count 99 L, MPV 9.8 07/26/22 06:28: Sodium 139, Potassium 3.8, Chloride 108 H, Carbon Dioxide 28.0, Anion Gap 3 L, BUN 15, Creatinine 0.80, Estim Creat Clear Calc 48.72, Est GFR (MDRD) Af Amer 90, Est GFR (MDRD) Non-Af 74, BUN/Creatinine Ratio 18.8, Glucose 108 H, Calcium 8.8 Micro: Microbiology 07/16/22 08:31 Nasal Secretion Nasal Screen MRSA/MSSA - Final Radiography Diagnostic Testing: Radiology Impression Knee X-Ray 07/25/22 16:25 IMPRESSION: Status post total knee replacement with changes as noted. Electronically Signed: Khurram Lauren DO at 16:51 EDT Reading Location ID and State: [facility] / [place] Tel [phone], Service support , Physical Exam Const alert, oriented x3, no apparent distress and well nourished Constitutional Narrative: Elderly white female, sitting up in a chair, nursing at bedside, patient appears comfortable and nontoxic, eating breakfast HEENT head/scalp atraumatic and moist oral mucous membranes Head and Scalp: normocephalic Resp normal respiratory effort, no retractions, no use of accessory muscles and clear to auscultation bilaterally Auscultation: Negative for crackles, rales, rhonchi or wheezes Cardio regular rate, regular rhythm, S1 normal heart sound, S2 normal heart sound, no murmurs, no rub, no gallops and no clicks GI normal to inspection, nondistended, normoactive bowel sounds and soft to palpation Extremity no clubbing, cyanosis or edema Extremity Narrative: 2+ pedal pulses Neuro oriented x3, moves all extremities and no focal motor deficits Neuro Narrative: Decreased movement on surgical site secondary to postoperative pain Speech: speech normal Psych affect normal Psych Narrative: Very pleasant, appropriate Assessment & Plan Assessment/Plan (1) Status post revision of total replacement of left knee: (2) Osteoarthritis: (3) Anemia: (4) Thrombocytopenia: PLAN: Plan Left knee osteoarthritis -Postop day 1 status post revision left total knee arthroplasty due to aseptic loosening -Management per primary service -PT/OT Anemia/thrombocytopenia - previous lab from 07/16/2022 shows hemoglobin of 12.2 and platelet count of 328,000 -Current hemoglobin 9.9 -Current platelet count 99,000 -Could be dilutional as white count is down to -Currently on no IV fluids -Intraoperative blood losses reported only at 250 -Repeat CBC at 1100 today to assess for stability -No obvious signs of current bleeding Reflux esophagitis/esophageal stenosis -EGD done on 01/09/2022 -EGD showed grade a reflux esophagitis and esophageal stenosis which was dilated -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 She is going home with her at the time of discharge. I discussed this with Dr. Alvarado's physician glass ribbon machine operator assistant Charges/Coding Visit Charges Inpatient E&M: 27868 Subs Hosp L2
[2022-07-26 07:31] LABS: Differential Comment SCANNED
[2022-07-26 08:44] VITALS: BP 99/57; PULSE 78; RESP 16; TEMP 36.3; O2SAT 100
[2022-07-26] MEDS: Montelukast 10 MG Tablet PO (08:59)
[2022-07-26] MEDS: Pantoprazole Sodium 20 MG Tablet PO (08:59)
[2022-07-26] MEDS: Doxycycline 100 MG CAPSULE PO ×2 (08:59→21:02)
[2022-07-26] MEDS: Famotidine 20 MG Tablet PO (09:00)
[2022-07-26] MEDS: Senna/Docusate Sodium 1 Tablet 2 TABLET PO ×2 (09:00→21:02)
[2022-07-26] MEDS: 0.9% Saline Lock 10 ML Syringe IV ×3 (09:01→16:22)
[2022-07-26] MEDS: Ketorolac 15 MG/ML Vial IV ×2 (09:01→15:07)
--- NOTE | 2022-07-26 09:25 | PCM.PN.ORT ---
Subjective Subjective The patient was sitting in bed upon examination. Patient denies any chest pain, shortness of breath, dizziness, lightheadedness, nausea or vomiting, or calf pain. Pain is controlled on medications. No adverse overnight events. Patient has had slight drop in blood pressure and there has been also drop in hemoglobin currently at 9.9. Case was discussed with medicine. We are going to continue to watch and repeat hemoglobin this afternoon. Patient overall denies any dizziness or lightheadedness. She has not worked with physical therapy yet. Her plan and wishes are to try to go home if possible when ready. Objective Data Objective Data Vital Signs: Vital Signs Temp Pulse Resp BP Pulse Ox O2 Del Method O2 Flow Rate 97.3 F L 78 16 99/57 L 100 Room Air 2 07/26/22 08:44 07/26/22 08:44 07/26/22 08:44 07/26/22 08:44 07/26/22 08:44 07/26/22 08:44 07/26/22 02:05 Oxygen Flow Rate (L/min) 2 Oxygen Delivery Method Room Air Weight: 73.936 kg Body Mass Index (BMI) 28.8 Intake & Output: Intake and Output for Last 24 Hours 07/24/22 07/25/22 07/26/22 23:59 23:59 23:59 Intake Total 3910.75 / 4060.75 1389.75 / 1389.75 Output Total 1000 / 1000 Balance 3910.75 / 3760.75 389.75 / 389.75 Lab / Micro Data Result Diagrams: 07/26/22 06:28 07/26/22 06:28 Labs: Laboratory Results - last 24 hr 07/25/22 09:38: POC Glucose 78 07/26/22 06:28: WBC 4.0 L, RBC 3.40 L, Hgb 9.9 L, Hct 31.2 L, MCV 91.8, MCH 29.1, MCHC 31.7 L, RDW Std Deviation 50.2 H, RDW Coeff of Garret 15.1 H, Plt Count 99 L, MPV 9.8, Differential Comment SCANNED 07/26/22 06:28: Sodium 139, Potassium 3.8, Chloride 108 H, Carbon Dioxide 28.0, Anion Gap 3 L, BUN 15, Creatinine 0.80, Estim Creat Clear Calc 48.72, Est GFR (MDRD) Af Amer 90, Est GFR (MDRD) Non-Af 74, BUN/Creatinine Ratio 18.8, Glucose 108 H, Calcium 8.8 Micro: Microbiology 07/16/22 08:31 Nasal Secretion Nasal Screen MRSA/MSSA - Final Radiography Diagnostic Testing: Radiology Impression Knee X-Ray 07/25/22 16:25 IMPRESSION: Status post total knee replacement with changes as noted. Electronically Signed: Khurram Lauren DO at 16:51 EDT , Physical Exam Narrative Vital signs stable and afebrile. Patient has had a slight drop in blood pressure currently at 99/57 SCDs and ANDREAS hose are in place bilaterally Patient is able to plantarflex and dorsiflex actively. Sensation is intact to light touch to saphenous, sural, superficial and deep peroneal, and tibial distribution. Dressing is clean dry and intact. Negative Homans bilaterally, negative signs and symptoms of DVT. Const alert, oriented x3 and no apparent distress Assessment & Plan Assessment/Plan (1) Status post revision of total replacement of left knee: PLAN: 1. S/P revision left total knee replacement complete femoral and tibial components with removal of hardware left distal femur POD #1 2. Continue Pain Medications: Tylenol, Celebrex, oxycodone 3. DVT Prophylaxis: Patient is currently on Xarelto for 2 weeks postoperatively due to previous DVT in the past. This will then be followed by aspirin 81 mg twice daily for an additional 2 weeks after completion of the Xarelto. This was discussed in detail with the patient. She voiced understanding. 4. PT/OT: Weightbearing as tolerated with walker. Appreciate recommendations from physical therapy with regards to discharge planning. Patient wishes to try to go home if possible. 5. H & H: 9.9/31.2, asymptomatic. Postoperative anemia secondary to acute blood loss from surgery without any intra operative complications. Preoperatively patient had hemoglobin/hematocrit at 12.2/37.8 on July 16, 2022. This was discussed with medicine and we are going to continue to watch this and repeat hemoglobin today. She will also avoid fluids at this time unless needed. Patient overall is without dizziness or lightheadedness but there has been a slight drop in blood pressure. 6. Continue postoperative management per medicine 7. Currently on doxycycline for 2 weeks postoperatively. Microbiology wound and tissue specimens were reviewed in chart and currently pending. I discussed with the patient potential side effects of doxycycline including sensitivity to the sunlight and increased risk of skin burn. Recommend patient take appropriate precautions. Also recommend patient to take probiotic while on the antibiotic. Patient voiced understanding agreement. 8. Encouraged Incentive Spirometry 9. Disposition: At this time patient is not appropriate for discharge. We want to continue to keep her additional night to monitor her hemoglobin as well as recommendations from physical therapy for appropriate discharge planning. Patient overall appears to be doing well this morning. All questions were answered with regards to her surgery. Possible discharge tomorrow depending upon medical condition and physical therapy recommendations. We will also want to continue to observe the microbiology wound and tissue specimens. I have reviewed the [place] Automated Rx Reporting System (OARRS) report for this patient for refill pattern and other prescriber involvement as part of the appropriate surveillance for the provision of acute and chronic controlled medications. The report was requested and reviewed on the date of this entry and was considered in the prescribing process. This dictation was created using voice recognition software. Phonetic and/or grammatical errors may exist.
[2022-07-26 11:00] LABS: Absolute Lymphocyte Count 1.09 X10^3/uL (0.83-4.51); Absolute Neutrophil Count 2.5 X10^3/uL (2.0-7.7); Basophil# 0.03 X10^3/uL; Basophil% 0.7 % (0-1); Eosinophils% 4.8 % (0-5); Hematocrit 29.8 % (37-47); Hemoglobin 9.3 g/dL (12.0-15.0); Lymphocyte # 1.09 X10^3/ul (0.83-4.51); Mean Corp Hgb Conc 31.2 g/dL (32-36); Mean Corpuscular Hgb 28.7 pg (27.0-32.0); Mean Platelet Vol. 9.8 fl (6.2-12.0); Monocyte# 0.33 X10^3/uL; Monocyte% 7.9 % (0-10); NRBC Flagged by Analyzer 0 % (0-5); Neutrophil # 2.54 X10^3/uL (2.7-7.7); Neutrophil % 60.4 % (47-70); POSITIVE COUNT YES; Platelet Count 96 K/mm3 (150-450); RBC Distribution Width CV 14.9 % (11.6-14.6); RBC Distribution Width SD 50.4 fl (35.1-43.9); Red Blood Count 3.24 M/mm3 (4.2-5.4); White Blood Count 4.2 K/mm3 (4.4-11.0)
[2022-07-26 11:15] VITALS: BP 112/63; PULSE 67; RESP 18; TEMP 36.3; O2SAT 97
[2022-07-26] MEDS: Ferrous Sulfate 325 MG Tablet PO ×2 (11:15→16:22)
--- NOTE | 2022-07-26 11:50 | CASEMGMT ---
EVA CROWLEY Assessment: Face to Face with pt for initial transition planning/care coordination assessment. EVA CROWLEY introduced self and role at [facility], pt voices understanding and consents to assessment. Pt is A/O x4 and answers all questions appropriately at this time. Pt lying in bed. She states she doesn't feel well at all. Noted pt did not ambulate with PT today. She states she could only do very minimal with therapy. OT to eval yet. Care providers, pharmacy, and demographics verified/updated. Admitting Dx: Lt hardware removal femur, total knee revision PCP:Abdirashid Specialists:Jenny ortho; [facility] pain mgmt Preferred Pharmacy: [facility] [employer] Insurance: [employer] Prescription Benefit: yes LNOK: Leland Flores, ; Conner Flores, son Living Arrangements: Pt lives with in a single story home with a stair lift to enter. Pt reports she was I in ADL's prior to surgery and her is able to assist her once home. Pt denies concerns at home. Transportation: Pt drives self and denies concerns with transportation. Pt to transport post op. DME/HHC/SNF: Pt has grab bars in the bathroom, shower chair, cane, FWW at home.Pt has had [facility] HHC in the past and denies SNF stays. Pt would like to dc to home although she is unsure if this will be possible. Will follow therapy. Pt currently does not have any therapy set up. She is aware RN CARLINE to follow and see how she does with OT today. Updated SW on pt status. Pt states no further concerns/needs. CM to follow. Advised pt to ask CM if any further question/concerns/needs arise, voices understanding. Pt Goal: TBD Plan: TBD
[2022-07-26 14:27] VITALS: BP 114/68; PULSE 81; RESP 18; TEMP 36.6; O2SAT 97
[2022-07-26 16:17] VITALS: O2SAT 97
[2022-07-26] MEDS: Ondansetron 4 MG/2 ML Vial IV (16:21)
[2022-07-26] MEDS: oxyCODONE 5 MG Tablet PO ×2 (16:21→23:20)
[2022-07-26 20:59] VITALS: BP 115/68; PULSE 70; RESP 18; TEMP 36.8; O2SAT 99
[2022-07-27 03:38] VITALS: BP 112/52; PULSE 70; RESP 18; TEMP 36.6; O2SAT 97
[2022-07-27] MEDS: Acetaminophen 500 MG Tablet 1000 MG PO ×3 (05:52→21:42)
[2022-07-27] MEDS: Rivaroxaban 10 MG Tablet PO (05:52)
[2022-07-27 06:16] LABS: Hemoglobin 9.7 g/dL (12.0-15.0); Mean Corp Hgb Conc 32.3 g/dL (32-36); Mean Corpuscular Volume 89.6 fL (81-99); Mean Platelet Vol. 10.1 fl (6.2-12.0); Platelet Count 111 K/mm3 (150-450); RBC Distribution Width CV 15.1 % (11.6-14.6); RBC Distribution Width SD 48.7 fl (35.1-43.9); Red Blood Count 3.35 M/mm3 (4.2-5.4); White Blood Count 4.1 K/mm3 (4.4-11.0)
--- NOTE | 2022-07-27 07:02 | PN.ORTHO_ITS ---
Subjective Subjective The patient was sitting in bed upon examination. Patient denies any chest pain, shortness of breath, nausea or vomiting, or calf pain. Patient states this morning she is having some lightheadedness. She denies any chest pain or shortness of breath. She also has had some increased pain with the left knee. She attempted therapy yesterday but reports she was not walking out in the [place] due to increased pain. Patient would also like to try to go home if possible however there is some concern if her can take care. Her cultures have been negative with no growth. Her hemoglobin has been stable. Her blood pressure has improved. Objective Data Objective Data Vital Signs: Vital Signs Temp Pulse Resp BP Pulse Ox O2 Del Method O2 Flow Rate 97.9 F 70 18 112/52 L 97 Room Air 2 07/27/22 03:38 07/27/22 03:38 07/27/22 03:38 07/27/22 03:38 07/27/22 03:38 07/27/22 03:40 07/26/22 02:05 Oxygen Flow Rate (L/min) 2 Oxygen Delivery Method Room Air Weight: 73.936 kg Body Mass Index (BMI) 28.8 Intake & Output: Intake and Output for Last 24 Hours 07/25/22 07/26/22 07/27/22 23:59 23:59 23:59 Intake Total 3910.75 / 4060.75 1889.75 / 1889.75 Output Total 1400 / 1400 Balance 3910.75 / 3760.75 489.75 / 489.75 Lab / Micro Data Result Diagrams: 07/27/22 05:55 07/26/22 06:28 Labs: Laboratory Results - last 24 hr 07/26/22 06:28: Differential Comment SCANNED 07/26/22 06:28: Sodium 139, Potassium 3.8, Chloride 108 H, Carbon Dioxide 28.0, Anion Gap 3 L, BUN 15, Creatinine 0.80, Estim Creat Clear Calc 48.72, Est GFR (MDRD) Af Amer 90, Est GFR (MDRD) Non-Af 74, BUN/Creatinine Ratio 18.8, Glucose 108 H, Calcium 8.8 07/26/22 10:51: WBC 4.2 L, RBC 3.24 L, Hgb 9.3 L, Hct 29.8 L, MCV 92.0, MCH 28.7, MCHC 31.2 L, RDW Std Deviation 50.4 H, RDW Coeff of Garret 14.9 H, Plt Count 96 L, MPV 9.8, Immature Gran % (Auto) 0.200, Neut % (Auto) 60.4, Lymph % (Auto) 26.0, [place] % (Auto) 7.9, Eos % (Auto) 4.8, Baso % (Auto) 0.7, Absolute Neuts (auto) 2.5, Absolute Lymphs (auto) 1.09, Nucleated RBC % 0 07/27/22 05:55: WBC 4.1 L, RBC 3.35 L, Hgb 9.7 L, Hct 30.0 L, MCV 89.6, MCH 29.0, MCHC 32.3, RDW Std Deviation 48.7 H, RDW Coeff of Garret 15.1 H, Plt Count 111 L, MPV 10.1 Micro: Microbiology 07/25/22 12:53 Tissue - Tibial Membrane Gram Stain - Final 07/25/22 12:53 Tissue - Tibial Membrane Wound Culture - Preliminary No growth-Final to follow 07/25/22 12:50 Tissue - Suprapatellar Pouch Gram Stain - Final 07/25/22 12:50 Tissue - Suprapatellar Pouch Wound Culture - Preliminary No growth-Final to follow 07/25/22 12:58 Tissue - Femoral Membrane Gram Stain - Final 07/25/22 12:58 Tissue - Femoral Membrane Wound Culture - Preliminary No growth-Final to follow 07/16/22 08:31 Nasal Secretion Nasal Screen MRSA/MSSA - Final Physical Exam Narrative Vital signs stable and afebrile. Patient's blood pressure has improved however she is complaining of some lightheadedness SCDs and ANDREAS hose are in place bilaterally Patient is able to plantarflex and dorsiflex actively. Sensation is intact to light touch to saphenous, sural, superficial and deep pe roneal, and tibial distribution. Patient does have some swelling to the postoperative left knee but has been stable. Dressing is clean dry and intact. Negative Homans bilaterally, negative signs and symptoms of DVT. Const alert, oriented x3 and no apparent distress Assessment & Plan Assessment/Plan (1) Status post revision of total replacement of left knee: PLAN: 1. S/P revision left total knee replacement complete femoral and tibial components with removal of hardware left distal femur POD #2 2. Continue Pain Medications: Tylenol, Celebrex, oxycodone. I am hesitant to place patient on stronger pain medication and this was discussed and reviewed with Dr. Victor Hugo Alvarado. We will continue with current pain regimen. 3. DVT Prophylaxis: Patient is currently on Xarelto for 2 weeks postoperatively due to previous DVT in the past. This will then be followed by aspirin 81 mg twice daily for an additional 2 weeks after completion of the Xarelto. This was discussed in detail with the patient. She voiced understanding. 4. PT/OT: Weightbearing as tolerated with walker. Appreciate recommendations from physical therapy with regards to discharge planning. Patient wishes to try to go home if possible but she does have some concern with regards to her helping. 5. H & H: 9.7/30.0, asymptomatic. Postoperative anemia secondary to acute blood loss from surgery without any intra operative complications. Patient's blood pressure has improved but she is complaining of some lightheadedness. She is currently on ferrous sulfate and folic acid. We will plan on her repeating lab work upon discharge and following up with primary care physician. Continue to monitor if patient stays in the hospital. 6. Continue postoperative management per medicine 7. Currently on doxycycline for 2 weeks postoperatively. Microbiology wound and tissue specimens were reviewed in chart and there is currently no growth or organisms seen today. I discussed with the patient potential side effects of doxycycline including sensitivity to the sunlight and increased risk of skin burn. Recommend patient take appropriate precautions. Also recommend patient to take probiotic while on the antibiotic. Patient voiced understanding agreement. 8. Encouraged Incentive Spirometry 9. Disposition: At this time patient's pain has increased and she has began to have some lightheadedness. Would like assessment from physical therapy for appropriate discharge planning. Patient may require [facility] versus rehab versus possible home health. She would like to try to go home if possible but we do need to assess her and make sure she can do this in a safe manner. I do feel patient will most likely benefit from an additional night due to the extent of the surgery and her current symptoms. I will have case work aide discussed with patient after physical therapy has assessed her and given recommendations. If she does require placement we will have to get started on this for insurance approval. Case was discussed with Dr. Victor Hugo Alvarado. He is in agreements with above treatment plan. Unless patient does extremely well today and is safe for discharge home patient will require possible additional night stay at this time. I have reviewed the [place] Automated Rx Reporting System (OARRS) report for this patient for refill pattern and other prescriber involvement as part of the appropriate surveillance for the provision of acute and chronic controlled medications. The report was requested and reviewed on the date of this entry and was considered in the prescribing process. This dictation was created using voice recognition software. Phonetic and/or grammatical errors may exist.
[2022-07-27 09:38] VITALS: BP 135/63; PULSE 72; RESP 18; TEMP 36.5; O2SAT 97
--- NOTE | 2022-07-27 09:43 | CASEMGMT ---
Addendum entered by Katharina Cavanaugh 07/27/22 09:56: Per PA, pt will dc tomorrow. Original Note: EVA CROWLEY spoke with therapy who is recommending outpt therapy for pt. EVA CROWLEY into pt room, pt sitting up in chair. Pt agreeable to outpt services. She would like her therapy to be set up at [facility]. Pt would like her meds to be sent to the room. Update to PA and to confirm if pt will dc today. TC to [facility], spoke with ronel López set up for first available on Saturday the at 1:30pm. EVA CROWLEY back into pt room to make aware.
[2022-07-27] MEDS: Senna/Docusate Sodium 1 Tablet 2 TABLET PO ×2 (09:46→21:42)
[2022-07-27] MEDS: Lisinopril 5 MG Tablet PO (09:46)
[2022-07-27] MEDS: Folic Acid 1 MG Tablet PO (09:46)
[2022-07-27] MEDS: Pantoprazole Sodium 20 MG Tablet PO (09:46)
[2022-07-27] MEDS: Celecoxib 200 MG Capsule PO (09:46)
[2022-07-27] MEDS: Famotidine 20 MG Tablet PO (09:46)
[2022-07-27] MEDS: hydroCHLOROthiazide 25 MG Tablet PO (09:47)
[2022-07-27] MEDS: Doxycycline 100 MG CAPSULE PO ×2 (09:47→21:42)
--- NOTE | 2022-07-27 11:35 | PCM.PN.HOSP ---
Reason for Visit Reason for Visit: Revision left total knee arthroplasty Subjective Subjective Patient still having some pain. Working with therapy at the time of my evaluation. They seem to be pleased with how she is doing. Complaining of a little bit of lightheadedness. Denies vertiginous symptoms. Orthostatic vital signs were negative. I suspect this lightheadedness may be related to medications. No other complaints at this time. She states she is still hopeful she will be able to go home at discharge. Objective Data Objective Data Vital Signs: Vital Signs Temp Pulse Resp BP Pulse Ox O2 Del Method O2 Flow Rate 97.7 F L 72 18 135/63 H 97 Room Air 2 07/27/22 09:38 07/27/22 09:38 07/27/22 09:38 07/27/22 09:38 07/27/22 09:38 07/27/22 09:38 07/26/22 02:05 Oxygen Flow Rate (L/min) 2 Oxygen Delivery Method Room Air Weight: 73.936 kg Body Mass Index (BMI) 28.8 Intake & Output: Intake and Output for Last 24 Hours 07/25/22 07/26/22 07/27/22 23:59 23:59 23:59 Intake Total 3910.75 / 4060.75 1889.75 / 1889.75 Output Total 1400 / 1400 Balance 3910.75 / 3760.75 489.75 / 489.75 Lab / Micro Data Result Diagrams: 07/27/22 05:55 07/26/22 06:28 Labs: Laboratory Results - last 24 hr 07/27/22 05:55: WBC 4.1 L, RBC 3.35 L, Hgb 9.7 L, Hct 30.0 L, MCV 89.6, MCH 29.0, MCHC 32.3, RDW Std Deviation 48.7 H, RDW Coeff of Garret 15.1 H, Plt Count 111 L, MPV 10.1 Micro: Microbiology 07/25/22 12:58 Tissue - Femoral Membrane Gram Stain - Final 07/25/22 12:58 Tissue - Femoral Membrane Wound Culture - Final No growth aerobically. 07/25/22 12:53 Tissue - Tibial Membrane Gram Stain - Final 07/25/22 12:53 Tissue - Tibial Membrane Wound Culture - Final No growth aerobically. 07/25/22 12:50 Tissue - Suprapatellar Pouch Gram Stain - Final 07/25/22 12:50 Tissue - Suprapatellar Pouch Wound Culture - Final No growth aerobically. 07/16/22 08:31 Nasal Secretion Nasal Screen MRSA/MSSA - Final Physical Exam Const alert, oriented x3, no apparent distress and well nourished Constitutional Narrative: Elderly white female, ambulating down the hallway using a walker with therapy services, patient appears comfortable and nontoxic HEENT head/scalp atraumatic and moist oral mucous membranes Head and Scalp: normocephalic Resp normal respiratory effort, no retractions, no use of accessory muscles and clear to auscultation bilaterally Auscultation: Negative for crackles, rales, rhonchi or wheezes Cardio regular rate, regular rhythm, S1 normal heart sound, S2 normal heart sound, no murmurs, no rub, no gallops and no clicks GI normal to inspection, nondistended, normoactive bowel sounds and soft to palpation Extremity no clubbing, cyanosis or edema Extremity Narrative: 2+ pedal pulses, teds hose in place, postop dressing in place and is clean dry and intact Neuro oriented x3, moves all extremities and no focal motor deficits Neuro Narrative: Decreased movement on surgical site secondary to postoperative pain Speech: speech normal Psych affect normal Psych Narrative: Very pleasant, appropriate Assessment & Plan Assessment/Plan (1) Status post revision of total replacement of left knee: (2) Osteoarthritis: (3) Anemia: (4) Thrombocytopenia: (5) Lightheadedness: PLAN: Plan Left knee osteoarthritis -Postop day 2 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 Awaiting physical therapy input Charges/Coding Visit Charges Inpatient E&M: 38169 Subs Hosp L2
[2022-07-27] MEDS: oxyCODONE 5 MG Tablet PO ×3 (12:22→21:42)
[2022-07-27] MEDS: Ferrous Sulfate 325 MG Tablet PO ×2 (12:23→17:05)
[2022-07-27 16:52] VITALS: BP 133/54; PULSE 89; RESP 18; TEMP 36.3; O2SAT 98
[2022-07-27] MEDS: Montelukast 10 MG Tablet PO (17:05)
[2022-07-27 21:35] VITALS: BP 126/76; PULSE 88; RESP 18; TEMP 36.5; O2SAT 99
[2022-07-28 03:33] VITALS: BP 126/70; PULSE 84; RESP 18; TEMP 36.7; O2SAT 98
[2022-07-28] MEDS: Acetaminophen 500 MG Tablet 1000 MG PO ×2 (05:24→12:31)
[2022-07-28] MEDS: Rivaroxaban 10 MG Tablet PO (05:24)
[2022-07-28 06:52] LABS: Absolute Lymphocyte Count 1.11 X10^3/uL (0.83-4.51); Absolute Neutrophil Count 1.9 X10^3/uL (2.0-7.7); Basophil# 0.05 X10^3/uL; Basophil% 1.3 % (0-1); Eosinophil# 0.24 X10^3/uL; Eosinophils% 6.3 % (0-5); Hematocrit 30.4 % (37-47); Lymphocyte # 1.11 X10^3/ul (0.83-4.51); Lymphocyte % 29.1 % (19-41); Mean Corp Hgb Conc 32.9 g/dL (32-36); Mean Corpuscular Hgb 29.1 pg (27.0-32.0); Mean Corpuscular Volume 88.4 fL (81-99); Mean Platelet Vol. 9.8 fl (6.2-12.0); Monocyte# 0.52 X10^3/uL; Monocyte% 13.6 % (0-10); NRBC Flagged by Analyzer 0 % (0-5); Neutrophil # 1.88 X10^3/uL (2.7-7.7); Neutrophil % 49.4 % (47-70); Platelet Count 121 K/mm3 (150-450); RBC Distribution Width SD 48.5 fl (35.1-43.9); Red Blood Count 3.44 M/mm3 (4.2-5.4); White Blood Count 3.8 K/mm3 (4.4-11.0)
[2022-07-28] MEDS: Folic Acid 1 MG Tablet PO (08:40)
--- NOTE | 2022-07-28 08:58 | PN.ORTHO_ITS ---
Subjective Subjective The patient was sitting in bed eating breakfast upon examination. Patient denies any chest pain, shortness of breath, dizziness, nausea or vomiting, or calf pain. Pain is controlled on medications. No adverse overnight events. Patient still occasionally complains of her head feeling funny. Occasional lightheadedness. She states it is getting better. She was worked up with orthostatic vitals yesterday which were normal. Case was discussed with medicine and she does feel it may be more related to pain medications. Patient states that she does not tolerate pain medications across the board. She has b een doing well with therapy. Patient is wanting to go home on discharge. She feels overall better today. Her hemoglobin continues to improve. Her vitals are stable. Objective Data Objective Data Vital Signs: Vital Signs Temp Pulse Resp BP Pulse Ox O2 Del Method O2 Flow Rate 98.1 F 84 18 126/70 H 98 Room Air 2 07/28/22 03:33 07/28/22 03:33 07/28/22 03:33 07/28/22 03:33 07/28/22 03:33 07/28/22 03:33 07/26/22 02:05 Oxygen Flow Rate (L/min) 2 Oxygen Delivery Method Room Air Weight: 73.936 kg Body Mass Index (BMI) 28.8 Intake & Output: Intake and Output for Last 24 Hours 07/26/22 07/27/22 07/28/22 23:59 23:59 23:59 Intake Total 1889.75 / 1889.75 2049 / 2049 300 / 300 Output Total 1400 / 1400 Balance 489.75 / 489.75 2049 / 2049 300 / 300 Lab / Micro Data Result Diagrams: 07/28/22 06:30 07/26/22 06:28 Labs: Laboratory Results - last 24 hr 07/28/22 06:30: WBC 3.8 L, RBC 3.44 L, Hgb 10.0 L, Hct 30.4 L, MCV 88.4, MCH 29.1, MCHC 32.9, RDW Std Deviation 48.5 H, RDW Coeff of Garret 15.0 H, Plt Count 121 L, MPV 9.8, Immature Gran % (Auto) 0.300, Neut % (Auto) 49.4, Lymph % (Auto) 29.1, [place] % (Auto) 13.6 H, Eos % (Auto) 6.3 H, Baso % (Auto) 1.3 H, Absolute Neuts (auto) 1.9 L, Absolute Lymphs (auto) 1.11, Nucleated RBC % 0 Micro: Microbiology 07/25/22 12:58 Tissue - Femoral Membrane Gram Stain - Final 07/25/22 12:58 Tissue - Femoral Membrane Wound Culture - Final No growth aerobically. 07/25/22 12:53 Tissue - Tibial Membrane Gram Stain - Final 07/25/22 12:53 Tissue - Tibial Membrane Wound Culture - Final No growth aerobically. 07/25/22 12:50 Tissue - Suprapatellar Pouch Gram Stain - Final 07/25/22 12:50 Tissue - Suprapatellar Pouch Wound Culture - Final No growth aerobically. 07/16/22 08:31 Nasal Secretion Nasal Screen MRSA/MSSA - Final Physical Exam Narrative Vital signs stable and afebrile. SCDs and ANDREAS hose are in place bilaterally Patient is able to plantarflex and dorsiflex actively. Sensation is intact to light touch to saphenous, sural, superficial and deep peroneal, and tibial distribution. Dressing is clean dry and intact. Negative Homans bilaterally, negative signs and symptoms of DVT. Const alert, oriented x3 and no apparent distress Assessment & Plan Assessment/Plan (1) Status post revision of total replacement of left knee: PLAN: 1. S/P revision left total knee replacement complete femoral and tibial components with removal of hardware left distal femur POD #3 2. Continue Pain Medications: Tylenol, Celebrex, oxycodone. Discussed with the patient to try to take the lowest amount of narcotic pain medication. Patient overall does not tolerate narcotics very well and I do feel this may be playing into some of her symptoms. Case was discussed with medicine and Dr. Victor Hugo Alvarado. 3. DVT Prophylaxis: Patient is currently on Xarelto for 2 weeks postoperatively due to previous DVT in the past. This will then be followed by aspirin 81 mg twice daily for an additional 2 weeks after completion of the Xarelto. This was discussed in detail with the patient. She voiced understanding. 4. PT/OT: Weightbearing as tolerated with walker. Appreciate recommendations from physical therapy with regards to discharge planning. Patient wishes to try to go home if possible but she does have some concern with regards to her helping. 5. H & H: 10.0/30.4, asymptomatic. Postoperative anemia secondary to acute blood loss from surgery without any intra operative complications. Patient's blood pressure has improved but she is complaining of some lightheadedness. She is currently on ferrous sulfate and folic acid. We will plan on her repeating lab work upon discharge and following up with primary care physician. Continue to monitor if patient stays in the hospital. Lab work order will be placed on chart 6. Continue postoperative management per medicine 7. Currently on doxycycline for 2 weeks postoperatively. Microbiology wound and tissue specimens were reviewed in chart and there is currently no growth or organisms seen today. I discussed with the patient potential side effects of doxycycline including sensitivity to the sunlight and increased risk of skin burn. Recommend patient take appropriate precautions. Also recommend patient to take probiotic while on the antibiotic. Patient voiced understanding agreement. 8. Encouraged Incentive Spirometry 9. Disposition: Case was discussed with Dr. Victor Hugo Alvarado. Patient is wishing to be discharged home at this time. She has been doing well with physical therapy and her hemoglobin continues to improve. We discussed upon discharge patient will need to take it easy and make sure she is not trying to do transfers by herself. She reports that her will be at home with her. I want her to continue exercises from physical therapy through the weekend until her first follow-up. Patient is wishing to do outpatient physical therapy. She would like her medications [facility] scribed to [facility]. She will follow-up per postop instructions. Patient will follow-up with primary care physician in 2 weeks for repeat lab work. I would then leave it up to the primary care physician with regards to further treatment for her postoperative anemia. This was discussed in detail with the patient today. I have reviewed the [place] Automated Rx Reporting System (OARRS) report for this patient for refill pattern and other prescriber involvement as part of the appropriate surveillance for the provision of acute and chronic controlled medications. The report was requested and reviewed on the date of this entry and was considered in the prescribing process. This dictation was created using voice recognition software. Phonetic and/or grammatical errors may exist.
--- NOTE | 2022-07-28 09:03 | DCINST_ITS ---
Discharge Instructions Diet Discharge Diet: No restrictions Activity Discharge Activity: May Not Drive (Unable to drive until you can walk 100 feet without the use of cane or walker and no longer requiring narcotics) May shower in (days): 1 (Please turn dressing away from water. Okay to get wet as long as dressing is intact to skin.) Ice area for (Minutes): 20 (Every 1-2 hours while awake[address] place barrier between the skin and ice pack.) Weight Bearing Status: Weight bearing as tolerated (With walker) Keep extremity elevated above heart level: Operative Extremity Dressing / Incision Call your doctor if your incision/area has: Continuous Slow Oozing, Sudden Increased Bleeding, Increased Pain/ Swelling, Increased Redness and Foul Smelling Discharge Call your doctor if you observe: Fever of 101 or Higher, Coldness, Increased Pain, Numbness or Tingling, Change in Color, Shortness of breath, Chest pain, Calf discomfort and Uncontrolled pain Remove Dressing in: 2 days (Okay to remove dressing on July 30, 2022) Additional Dressing/Incision Instructions:: Follow [facility] Post-op Instructions. Once postoperative dressing has been removed only use gentle soap and water over the incision. Do not use any ointments, Neosporin, salves, alcohol pads over the incision for 6 weeks postoperatively. Do not submerge underwater for 6 weeks postoperatively. Continue with ANDREAS hose/elastic stockings for 2 weeks postoperatively. May rem ove at nighttime but needs to be placed back on the leg during the day. Do NOT use alcohol with narcotic pain medication. Do NOT make important decisions while taking narcotic medication. If you have problems with taking your medication (rash, itching, nausea, etc.) call the office at once. Follow Up Care Test Results: Test results from this visit will be discussed in further detail at your follow- up appointment, if applicable. Discharge Plan Admission Admit Date/Time: 07/25/22 09:10 Attending Provider: Victor Hugo Alvarado Primary Care Provider: Kenny Mendenhall Consulting Providers: Lalo Dickinson ; Brielle Bright Discharge Orders/Prescriptions Prescriptions: New acetaminophen 500 mg Tablet 1,000 mg PO Q8 Qty: 90 0RF Rx Instructions: Do not take more than 3000 mg Tylenol in a 24-hour period. doxycycline monohydrate 100 mg Capsule 100 mg PO BID 12 Days Qty: 24 0RF ferrous sulfate [FeroSul] 325 mg (65 mg iron) Tablet 325 mg PO 1200,1700 14 Days Qty: 28 0RF folic acid 1 mg Tablet 1 mg PO BREAKFAST 14 Days Qty: 14 0RF montelukast 10 mg Tablet 10 mg PO DAILY@1700 30 Days Qty: 30 2RF Rx Instructions: Take for 3 months postoperatively oxycodone 5 mg Tablet 5 - 10 mg PO Q4H PRN PRN (Reason: Pain Score 4-10) 5 Days Qty: 36 0RF Xarelto 10 mg Tablet 10 mg PO DAILY@0600 12 Days Qty: 12 0RF Rx Instructions: Take for 2 weeks postoperatively for DVT prophylaxis Continued lisinopril 5 mg tablet 5 mg PO DAILY Label Comments: TAKE 1 TABLET BY MOUTH ONCE DAILY hydrochlorothiazide 25 mg tablet 25 mg PO DAILY Label Comments: TAKE 1 TABLET BY MOUTH ONCE DAILY celecoxib 200 mg capsule 200 mg PO DAILY Label Comments: TAKE 1 CAPSULE BY MOUTH ONCE DAILY WITH FOOD omeprazole 20 mg capsule,delayed release(DR/EC) 20 mg PO DAILY Discontinued acetaminophen [Tylenol] 325 mg Tablet 650 mg PO Q4H PRN PRN (Reason: Fever, pain 1-10/10) Qty: 0 0RF Other Ambulatory Orders: CBC-Complete Blood Cnt No Diff (Routine) Timeframe: 2 Weeks Facility: [facility] - Location: Laboratory Ordered By: John HERNANDEZ 12 Lead EKG (Routine) Timeframe: [id number] Location: None Selected Ordered By: Dr. Victor Hugo Alvarado Referrals / Follow Up: Physical,Therapy [Other] - 08/01/22 1:30 pm Kenny Mendenhall MD [Primary Care Provider] - 08/09/22 10:00 am John Garcia PA-C [Med Staff - Adv Practice Prof] - 08/09/22 3:00 pm Disposition Disposition (needs filled in before D/C Order can be placed): Home, Self Care
[2022-07-28 09:05] VITALS: BP 138/87; PULSE 82; RESP 18; TEMP 36.2; O2SAT 97
--- NOTE | 2022-07-28 09:22 | PCM.DC.SUM ---
Providers Date of Admission: 07/25/22 Date of Discharge: 07/28/22 Primary Care Physician: Dr. Kenny Mendenhall MD Consultations 07/25/22 07:49 Consult: Hospitalist Routine Consulting Provider: Lalo Dickinson Reason for Consult: post op med management EMERGENT Consult: No MD Notified: Yes Date Notified: 07/25/22 Time Notified: 17:44 Method of Notification: Verbal Reason For Visit: LT HARDWARE REMOVAL FEMUR, TOTAL KNEE REVISION Diagnosis Discharge Diagnosis (1) Status post revision of total replacement of left knee: Status: Acute Code(s): Z96.652 - Presence of left artificial knee joint Plan: 1. S/P revision left total knee replacement complete femoral and tibial components with removal of hardware left distal femur POD #3 2. Continue Pain Medications: Tylenol, Celebrex, oxycodone. Discussed with the patient to try to take the lowest amount of narcotic pain medication. Patient overall does not tolerate narcotics very well and I do feel this may be playing into some of her symptoms. Case was discussed with medicine and Dr. Victor Hugo Alvarado. 3. DVT Prophylaxis: Patient is currently on Xarelto for 2 weeks postoperatively due to previous DVT in the past. This will then be followed by aspirin 81 mg twice daily for an additional 2 weeks after completion of the Xarelto. This was discussed in detail with the patient. She voiced understanding. 4. PT/OT: Weightbearing as tolerated with walker. Appreciate recommendations from physical therapy with regards to discharge planning. Patient wishes to try to go home if possible but she does have some concern with regards to her helping. 5. H & H: 10.0/30.4, asymptomatic. Postoperative anemia secondary to acute blood loss from surgery without any intra operative complications. Patient's blood pressure has improved but she is complaining of some lightheadedness. She is currently on ferrous sulfate and folic acid. We will plan on her repeating lab work upon discharge and following up with primary care physician. Continue to monitor if patient stays in the hospital. Lab work order will be placed on chart 6. Continue postoperative management per medicine 7. Currently on doxycycline for 2 weeks postoperatively. Microbiology wound and tissue specimens were reviewed in chart and there is currently no growth or organisms seen today. I discussed with the patient potential side effects of doxycycline including sensitivity to the sunlight and increased risk of skin burn. Recommend patient take appropriate precautions. Also recommend patient to take probiotic while on the antibiotic. Patient voiced understanding agreement. 8. Encouraged Incentive Spirometry 9. Disposition: Case was discussed with Dr. Victor Hugo Alvarado. Patient is wishing to be discharged home at this time. She has been doing well with physical therapy and her hemoglobin continues to improve. We discussed upon discharge patient will need to take it easy and make sure she is not trying to do transfers by herself. She reports that her will be at home with her. I want her to continue exercises from physical therapy through the weekend until her first follow-up. Patient is wishing to do outpatient physical therapy. She would like her medications E scribed to [facility]. She will follow-up per postop instructions. Patient will follow-up with primary care physician in 2 weeks for repeat lab work. I would then leave it up to the primary care physician with regards to further treatment for her postoperative anemia. This was discussed in detail with the patient today. I have reviewed the [place] Automated Rx Reporting System (OARRS) report for this patient for refill pattern and other prescriber involvement as part of the appropriate surveillance for the provision of acute and chronic controlled medications. The report was requested and reviewed on the date of this entry and was considered in the prescribing process. This dictation was created using voice recognition software. Phonetic and/or grammatical errors may exist. Medications at Discharge Home Medications celecoxib 200 mg capsule 200 mg PO DAILY arthritis pain 10/24/21 hydrochlorothiazide 25 mg tablet 25 mg PO DAILY blood pressure 10/24/21 lisinopril 5 mg tablet 5 mg PO DAILY blood pressure 10/24/21 omeprazole 20 mg capsule,delayed release 20 mg PO DAILY Check with primary doctor 07/12/22 acetaminophen 500 mg tablet 1,000 mg PO Q8 #90 tabs 07/28/22 doxycycline monohydrate 100 mg capsule 100 mg PO BID 12 days #24 caps 07/28/22 ferrous sulfate 325 mg (65 mg iron) tablet (FeroSul) 325 mg PO 1200,1700 14 days #28 tabs 07/28/22 folic acid 1 mg tablet 1 mg PO BREAKFAST 14 days #14 tabs 07/28/22 montelukast 10 mg tablet 10 mg PO DAILY@1700 30 days #30 tabs 07/28/22 oxycodone 5 mg tablet 5 - 10 mg PO Q4H PRN PRN Pain Score 4-10 5 days #36 tabs 07/28/22 rivaroxaban 10 mg tablet (Xarelto) 10 mg PO DAILY@0600 12 days #12 tabs 07/28/22 Hospital Course Operations - (Revision left total knee replacement complete femoral and tibial components with removal of hardware left distal femur) Summary of Care Provided Hospital Course: Patient is a 76-year-old female who had previous left total knee arthroplasty by Dr. Adrian Fuller in 2002. She had a second surgery with revision total knee arthroplasty due to aseptic loosening on October 03, 2009. She has had a previous distal femur fracture. Patient had continued pain with the knee and had injury in October 2021 with a fall with twisting type injury of the leg. Since that injury she has continued to have pain. Previous CT and x-rays revealed lucencies around the femoral stem. After failing conservative measures, the patient opted to proceed with a revision left total knee arthroplasty with removal of hardware. The patient underwent the above-stated procedure on July 25, 2022. Patient did receive perioperative antibiotics. Intraoperatively was uneventful. For details please see dictated operative note. The patient was placed in thigh-high teds, bilateral SCDs, remained stable in recovery. Patient was admitted to the 3rd floor at [facility]. The patient's pain was managed with the use of IV and p.o. pain medications. Patient participated in physical therapy. Physical therapy states patient was able to be discharged home with outpatient physical therapy. Patient also wished to be discharged home. Patient did have a drop in hemoglobin in which she was followed and placed on medications. She will follow-up with her primary care physician in 2 weeks for repeat lab work. She has had some lightheadedness in which work-up was done in the hospital she was stable with vitals and most likely secondary to narcotics. We have attempted to limit the narcotics as much as possible. Patient was medically stable and orthopedically stable on postoperative day #3. Patient was discharged on postoperative day #3 to home. Patient was given medications stated below. Patient will follow up with [facility] per postop instructions for reassessment. Due to previous DVT in the past she will be on Xarelto for [address] Alli Alvarado also placed patient on Montelukast for 3 months for scar tissue prevention. Her prescriptions were E scribed to [facility]. Weight / BMI Weight Weight: 73.936 kg Body Mass Index (BMI) 28.8 ABG / Lab / Microbiology Data Result Diagrams: 07/28/22 06:30 07/26/22 06:28 Laboratory: Laboratory Results - last 24 hr 07/28/22 06:30: WBC 3.8 L, RBC 3.44 L, Hgb 10.0 L, Hct 30.4 L, MCV 88.4, MCH 29.1, MCHC 32.9, RDW Std Deviation 48.5 H, RDW Coeff of Garret 15.0 H, Plt Count 121 L, MPV 9.8, Immature Gran % (Auto) 0.300, Neut % (Auto) 49.4, Lymph % (Auto) 29.1, Garvin % (Auto) 13.6 H, Eos % (Auto) 6.3 H, Baso % (Auto) 1.3 H, Absolute Neuts (auto) 1.9 L, Absolute Lymphs (auto) 1.11, Nucleated RBC % 0 Microbiology: Microbiology 07/25/22 12:58 Tissue - Femoral Membrane Gram Stain - Final 07/25/22 12:58 Tissue - Femoral Membrane Wound Culture - Final No growth aerobically. 07/25/22 12:53 Tissue - Tibial Membrane Gram Stain - Final 07/25/22 12:53 Tissue - Tibial Membrane Wound Culture - Final No growth aerobically. 07/25/22 12:50 Tissue - Suprapatellar Pouch Gram Stain - Final 07/25/22 12:50 Tissue - Suprapatellar Pouch Wound Culture - Final No growth aerobically. 07/16/22 08:31 Nasal Secretion Nasal Screen MRSA/MSSA - Final D/C Instructions Discharge Diet: No restrictions May shower in (days): 1 (Please turn dressing away from water. Okay to get wet as long as dressing is intact to skin.) Ice area for (Minutes): 20 (Every 1-2 hours while awake[address] place barrier between the skin and ice pack.) Weight Bearing Status: Weight bearing as tolerated (With walker) Keep extremity elevated above heart level: Operative Extremity Call your doctor if your incision/area has: Continuous Slow Oozing, Sudden Increased Bleeding, Increased Pain/ Swelling, Increased Redness and Foul Smelling Discharge Call your doctor if you observe: Fever of 101 or Higher, Coldness, Increased Pain, Numbness or Tingling, Change in Color, Shortness of breath, Chest pain, Calf discomfort and Uncontrolled pain Additional Dressing/Incision Instructions: Follow [facility] Post-op Instructions. Once postoperative dressing has been removed only use gentle soap and water over the incision. Do not use any ointments, Neosporin, salves, alcohol pads over the incision for 6 weeks postoperatively. Do not submerge underwater for 6 weeks postoperatively. Continue with ANDREAS hose/elastic stockings for 2 weeks postoperatively. May remove at nighttime but needs to be placed back on the leg during the day. Do NOT use alcohol with narcotic pain medication. Do NOT make important decisions while taking narcotic medication. If you have problems with taking your medication (rash, itching, nausea, etc.) call the office at once. Meaningful Use Info Meaningful Use Diagnoses (Choose all that apply): None applicable Discharge Plan Admission Admit Date/Time: 07/25/22 09:10 Attending Provider: Victor Hugo Alvarado Primary Care Provider: Kenny Mendenhall Consulting Providers: Lalo Dickinson ; Brielle Bright Discharge Orders/Prescriptions Prescriptions: New acetaminophen 500 mg Tablet 1,000 mg PO Q8 Qty: 90 0RF Rx Instructions: Do not take more than 3000 mg Tylenol in a 24-hour period. doxycycline monohydrate 100 mg Capsule 100 mg PO BID 12 Days Qty: 24 0RF ferrous sulfate [FeroSul] 325 mg (65 mg iron) Tablet 325 mg PO 1200,1700 14 Days Qty: 28 0RF folic acid 1 mg Tablet 1 mg PO BREAKFAST 14 Days Qty: 14 0RF montelukast 10 mg Tablet 10 mg PO DAILY@1700 30 Days Qty: 30 2RF Rx Instructions: Take for 3 months postoperatively oxycodone 5 mg Tablet 5 - 10 mg PO Q4H PRN PRN (Reason: Pain Score 4-10) 5 Days Qty: 36 0RF Xarelto 10 mg Tablet 10 mg PO DAILY@0600 12 Days Qty: 12 0RF Rx Instructions: Take for 2 weeks postoperatively for DVT prophylaxis Continued lisinopril 5 mg tablet 5 mg PO DAILY Label Comments: TAKE 1 TABLET BY MOUTH ONCE DAILY hydrochlorothiazide 25 mg tablet 25 mg PO DAILY Label Comments: TAKE 1 TABLET BY MOUTH ONCE DAILY celecoxib 200 mg capsule 200 mg PO DAILY Label Comments: TAKE 1 CAPSULE BY MOUTH ONCE DAILY WITH FOOD omeprazole 20 mg capsule,delayed release(DR/EC) 20 mg PO DAILY Discontinued acetaminophen [Tylenol] 325 mg Tablet 650 mg PO Q4H PRN PRN (Reason: Fever, pain 1-12/25) Qty: 0 0RF Other Ambulatory Orders: CBC-Complete Blood Cnt No Diff (Routine) Timeframe: 2 Weeks Facility: [facility] - Location: Laboratory Ordered By: John HERNANDEZ 12 Lead EKG (Routine) Timeframe: [id number] Location: None Selected Ordered By: Dr. Victor Hugo Alvarado Referrals / Follow Up: Physical,Therapy [Other] - 08/01/22 1:30 pm Kenny Mendenhall MD [Primary Care Provider] - 08/09/22 10:00 am John Garcia PA-C [Med Staff - [facility] Practice Prof] - 08/09/22 3:00 pm Disposition Disposition (needs filled in before D/C Order can be placed): Home, Self Care
[2022-07-28] MEDS: Pantoprazole Sodium 20 MG Tablet PO (10:53)
[2022-07-28] MEDS: hydroCHLOROthiazide 25 MG Tablet PO (10:54)
[2022-07-28] MEDS: Famotidine 20 MG Tablet PO (10:54)
[2022-07-28] MEDS: Celecoxib 200 MG Capsule PO (10:54)
[2022-07-28] MEDS: Senna/Docusate Sodium 1 Tablet 2 TABLET PO (10:54)
[2022-07-28] MEDS: Doxycycline 100 MG CAPSULE PO (10:54)
[2022-07-28] MEDS: Lisinopril 5 MG Tablet PO (10:55)
[2022-07-28] MEDS: Ferrous Sulfate 325 MG Tablet PO (12:28)
[2022-07-28] MEDS: oxyCODONE 5 MG Tablet PO (12:31)
[2022-07-28 13:28] VITALS: BP 130/77; PULSE 70; RESP 18; TEMP 36.9; O2SAT 98
== END 2022-07-28 13:30 | disposition home or self-care (01) | DRG 467 ==
LOC: ACINP 09:14 → MS3 16:25
PROVIDERS: Anesthesiology; Internal Medicine; Admitting Provider Specialist; PCP Family Medicine; Referring Provider Specialist; Visit Provider Specialist
PROC: 0SRD0J9 Replacement of Left Knee Joint with Synthetic Substitute, Cemented, Open Approach (ICD-10-PCS; principal; 2022-07-25 11:20)
DX: T84.033A Mechanical loosening of internal left knee prosthetic joint, initial encounter (principal); D62 Acute posthemorrhagic anemia; G20 Parkinson's disease; D69.6 Thrombocytopenia, unspecified; M32.9 Systemic lupus erythematosus, unspecified; K21.9 Gastro-esophageal reflux disease without esophagitis; I10 Essential (primary) hypertension; K21.00 Gastro-esophageal reflux disease with esophagitis, without bleeding; M17.12 Unilateral primary osteoarthritis, left knee; K22.2 Esophageal obstruction; Z96.652 Presence of left artificial knee joint; Z79.1 Long term (current) use of non-steroidal anti-inflammatories (NSAID); R42 Dizziness and giddiness
CPT/HCPCS: 36415; 73560; 80048; 82040; 82962; 83735; 85025; 85027; 87015; 87070; 87075; 87081; 87102; 87116; 87176; 87205; 87206; 88304; 88305; 88311; 93005; 94668; 97110; 97116; 97162; 97166; 97530; 97535; 99252; C1776; J7050; J7120; A4216; G0463; J2405; J3475

== ENCOUNTER → 2022-08-07 | Outpatient (CLI) | payer MEDICARE, SELFPAY ==
[2022-08-07 09:48] LABS: Hematocrit 34.7 % (37-47); Hemoglobin 11.1 g/dL (12.0-15.0); Mean Corpuscular Hgb 29.4 pg (27.0-32.0); Mean Platelet Vol. 9.4 fl (6.2-12.0); Platelet Count 475 K/mm3 (150-450); RBC Distribution Width CV 17.2 % (11.6-14.6); RBC Distribution Width SD 56.9 fl (35.1-43.9); Red Blood Count 3.77 M/mm3 (4.2-5.4); White Blood Count 6.3 K/mm3 (4.4-11.0)
== END | disposition home or self-care (01) ==
LOC: LAB 09:12
PROVIDERS: PCP Family Medicine; Referring Provider Physician Assistant Surgical; Visit Provider Physician Assistant Surgical
DX: D64.9 Anemia, unspecified (principal)
CPT/HCPCS: 36415; 85027